=== PATIENT | male | born 1955 | race Caucasian/White ===

== ENCOUNTER 2022-10-21 14:49 | Outpatient (OUT) | payer OTHER, SELFPAY ==
[2022-10-21 15:27] LABS: Basophils Percent Auto 0.6 % (0.2-2.0); Eosinophils Absolute Auto 0.2 10^3/uL (0.0-0.7); Eosinophils Percent Auto 2.4 % (0.9-7.0); Hematocrit 45.8 % (42.0-54.0); Hemoglobin 15.2 g/dL (14.0-18.0); Immature Granulocytes Abs Auto 0.03 10^3/uL (0.00-0.03); Immature Granulocytes Pct Auto 0.5 % (0.0-0.5); Lymphocytes Absolute Auto 1.6 10^3/uL (1.2-3.8); Lymphocytes Percent Auto 24.5 % (20.5-60.0); Mean Corpuscular HGB Conc 33.2 g/dL (29.9-35.2); Mean Corpuscular Hemoglobin 30.4 pg (25.9-34.0); Mean Corpuscular Volume 91.6 fL (80.0-94.0); Mean Platelet Volume 9.3 fL (9.5-13.5); Monocytes Absolute Auto 0.4 10^3/uL (0.3-0.8); Monocytes Percent Auto 6.7 % (1.7-12.0); Neutrophils Absolute Auto 4.2 10^3/uL (1.4-6.5); Neutrophils Percent Auto 65.3 % (43.0-75.0); Platelet Count 164 10^3/uL (150-450); Red Cell Distribution Width 13.7 % (11.0-15.0); White Blood Count 6.4 10^3/uL (4.0-11.0)
[2022-10-21 15:54] LABS: Alanine Aminotransferase 22 U/L (16-63); Albumin Globulin Ratio 1.1; Albumin Level 3.6 g/dL (3.4-5.0); Alkaline Phosphatase 81 U/L (46-116); Aspartate Amino Transferase 18 U/L (15-37); BUN Creatinine Ratio 19.8; Bilirubin Total 0.5 mg/dL (0.2-1.0); Calcium 8.6 mg/dL (8.5-10.1); Carbon Dioxide 29.1 mmol/L (21.0-32.0); Chloride 108 mmol/L (98-107); Chol HDL Ratio 2.4; Cholesterol 187 mg/dL (<=200); Estimated GFR (African America >60 (>=60); Estimated GFR (Non-African Ame >60 (>=60); Globulin 3.3 g/dL; Glucose 93 mg/dL (74-106); HDL Cholesterol 79 mg/dL (40-60); Magnesium 1.6 mg/dL (1.8-2.4); Potassium 4.1 mmol/L (3.5-5.1); Sodium 142 mmol/L (136-145); Thyroid Stimulating Hormone 0.692 uIU/mL (0.358-3.740); Total Protein 6.9 g/dL (6.4-8.2); Triglycerides 62 mg/dL (<=150); VLDL CHOLESTEROL 12.4 mg/dL
[2022-10-21 16:00] LABS: Prostate Specific Antigen Scrn 3.02 ng/mL (<=4.00)
[2022-10-21 16:04] LABS: Bilirubin Urine NEGATIVE (NEGATIVE); Blood Urine NEGATIVE (NEGATIVE); Clarity Urine CLEAR (CLEAR); Color Urine YELLOW (YELLOW); Glucose Urine UA NEGATIVE (NEGATIVE); Ketones Urine NEGATIVE (NEGATIVE); Leukocyte Esterase Urine NEGATIVE (NEGATIVE); Nitrite Urine NEGATIVE (NEGATIVE); Protein Urine NEGATIVE (NEG/TRACE); Specific Gravity Urine >=1.030 (1.005-1.025); Urobilinogen Urine 0.2 EU/dL (0.2-1.0); pH Urine 5.5 (5.0-9.0)
[2022-10-21 16:51] LABS: Bacteria Urine TRACE #/HPF (NONE SEEN); Cast Seen? NONE SEEN #/LPF (NONE SEEN); Crystals Seen? None Seen #/HPF (None Seen); Mucus Urine NONE SEEN (NONE SEEN); RBC Urine 0-2 #/HPF (0-2); Squamous Epithelial Cell Urine RARE #/LPF (NONE/RARE); Urine Culture Indicated NO; WBC Urine 0-2 #/HPF (NONE SEEN)
[2022-10-22 04:08] LABS: Triiodothyronine (T3) 123 ng/dL (71-180)
== END 2022-10-21 14:50 | disposition home or self-care (01) ==
LOC: LAB 14:56
PROVIDERS: PCP Nurse Practitioner; Visit Provider Nurse Practitioner
DX: R53.83 Other fatigue (principal); Z72.0 Tobacco use; Z82.49 Family history of ischemic heart disease and other diseases of the circulatory system; G25.81 Restless legs syndrome; Z12.5 Encounter for screening for malignant neoplasm of prostate; Z85.528 Personal history of other malignant neoplasm of kidney; K50.90 Crohn's disease, unspecified, without complications
CPT/HCPCS: 36415; 80053; 80061; 81001; 82728; 83735; 84443; 84480; 85025; G0103

== ENCOUNTER 2022-12-16 08:52 | Outpatient (OUT) | payer OTHER, SELFPAY ==
--- NOTE | 2022-12-16 09:49 | NM_ITS ---
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 INDICATIONS: CHEST PAIN, FAMILY HX OF CORONARY ATHEROSCLEROSIS, TOBACCO TECHNIQUE: Exam Description: Stress/Rest one day protocol gated SPECT Rest Imagin.5 mCi Tc-99m Cardiolite IV on 12/16/2022 Stress Imaging 28.7 mCi Tc-99m Cardiolite IV on 12/16/2022 Exercise Protocol: Ziyad Heart Rate (bpm): Rest: 75 Max: 130 PMHR: 84 Blood Pressure: Rest: 118/78 Max: 170/82 Exercise Time: Minutes: 9 Seconds: 55 Stage Reached: Stage: 4 Mets 11.2 Symptoms: Rest and peak stress ECG findings were normal and the exercise portion of the study was normal per attending physician Dr. Zuniga . For more details please see separate cardiac stress test report. FINDINGS: QUALITY OF STUDY: Excellent. PERFUSION DEFECT: None. LOCATION: N/A SIZE: N/A. SEVERITY: N/A. TYPE: N/A. WALL MOTION: Normal. LV SIZE: Normal. 76 mL. TID / TCD: None; 0.8 LVEF: Normal. Calculated EF 55%. SUMMARY: Myocardial perfusion imaging study is NORMAL. CONCLUSION: 1. Normal nuclear medicine myocardial perfusion scan. 2. Ejection fraction is at lower limits of normal. Dictated by: Yoni Capone M.D. on 12/17/2022 at 09:20 Approved by: Yoni Capone M.D. on 12/17/2022 at 09:22
--- NOTE | 2022-12-16 12:41 | PM.STRESS ---
Stress Test Stress Test Requesting physician: Leah Olson Procedure: Exercise Cardiolite stress test General Information: Reason for Stress Test: Chest pain Cardiac History and Risk Factors: Current smoker, father has history of CAD. Resting 12 - Lead Electrocardiogram: Rate & rhythm: Normal sinus at a rate of 74. [place]: Normal T-waves: Inverted T-waves in aVL ST-segments:Normal Stress Test: Protocol: Ziyad protocol was followed, with injection of Cardiolite once target heart rate was achieved. Exercise capacity: Execellent exercise capacity. Total exercise time of 9 minutes 56 seconds reached Ziyad stage 4 at 3.6MPH, 16% grade, & 10.9 METs. Blood pressure: Initial: 118/78, Maximum: 170/82, Recovery: 144/76 Rate & rhythm: Patient remained in sinus rhythm during the exercise and recovery portions of the study.? The maximum heart rate was 130, which was 85% of the maximum predicted heart rate 154. There were frequent polymorphic PVCs and occasional couplets. ST-segments & T-waves: There were no T-wave changes and ST-segment changes when compared to the baseline EKG. Patient response/symptoms: There were no symptoms similar to the chief complaint. Interpretation: Normal exercise stress test. Asymptomatic. Cardiolite imaging interpretation will be reported separately. Clinical correlation required.?
== END 2022-12-16 08:53 | disposition home or self-care (01) ==
LOC: NM 08:55
PROVIDERS: PCP Nurse Practitioner; Visit Provider Nurse Practitioner
DX: R07.9 Chest pain, unspecified (principal); Z82.49 Family history of ischemic heart disease and other diseases of the circulatory system; Z72.0 Tobacco use
CPT/HCPCS: 78452; 93017; A9500

== ENCOUNTER 2023-01-15 10:08 | Outpatient (OUT) | payer OTHER, SELFPAY ==
--- NOTE | 2023-01-15 11:13 | CA_ITS ---
Patient Name Site Name MARK BECKER [facility] Account No Medical Record Number Age Sex Date Time [id number] [facility]:[id number] M 01/15/2023 10:23 At the Request Of SCHUYLER HODGES ECHOCARDIOGRAM REPORT PROCEDURE: CA ECHO DOPPLER COMPLETE INDICATIONS: Chest pain COMPARISON: None. DESCRIPTION: COMPLETE ECHOCARDIOGRAM Real-time transthoracic echocardiography with 2D, M-mode, spectral and color flow Doppler performed. QUALITY: Technical quality was good. LEFT VENTRICLE: Normal chamber size. Normal left ventricular wall thickness. Global left ventricular systolic function is normal. LV EF: Estimated left ventricular ejection fraction is 55% DIASTOLIC: Normal diastolic function. ATRIAL SEPTUM: LEFT ATRIUM: Mild dilatation. RIGHT ATRIUM: Normal chamber size. RIGHT VENTRICLE: Normal chamber size. Normal right ventricular systolic function. TRICUSPID VALVE: Normal mobility and thickness. No stenosis with mild regurgitation. Moderate to severe pulmonary hypertension. RVSP 59 mmHg MITRAL VALVE: Normal mobility and thickness. No evidence of mitral valve stenosis. There is no mitral annular calcification. No mitral regurgitation. AORTIC VALVE: Normal trileaflet appearance. Thickened aortic valve. Normal leaflet mobility. No evidence of aortic valve stenosis. AORTIC ROOT: Normal diameter and appearance. PULMONIC VALVE: Normal thickness and mobility. No stenosis. Trivial regurgitation. PERICARDIUM: No evidence of pericardial effusion. IVC: Collapses with inspirations. Normal size. PLEURA: CONCLUSION: 1. Normal ventricular systolic function. LVEF is 55%. 2. Normal diastolic function. 3. Mild tricuspid regurgitation. 4. Moderately to severely elevated right-sided pressures. RVSP is 59 mmHg. 5. No pericardial effusion. Adult Echocardiography Procedure Report Left Ventricle LVEDD (3.7 - 5.6 cm): 4.51 cm LVESD (2.2 - 4.0 cm): 3.13 cm LVIVS thickness (0.6 - 1.2 cm): 0.80 cm LVPW thickness (0.5 - 1.0 cm): 0.90 cm e': 0.11 m/s E - e': 5.31 LVOT Max Gradient: 1.70 mm[Hg] LVOT Area (cm2): 0.65 m/s Peak Velocity (LVOT): 0.65 m/s Mean Velocity (LVOT): 0.45 m/s LVOT Diameter 2.02 cm Left Ventricular Ejection Fraction: 55 % Left Atrium LA Volume Index (2D A2C): 30.13 ml/m2 Left Atrium Systolic Dimension: 2.59 cm Mitral Valve MV E to A Ratio: 0.94 Mitral Valve A-Wave Peak Velocity: 0.62 m/s Mitral Valve E-Wave Peak Velocity: 0.58 m/s Right Ventricle RV Internal Diastolic Dimension: 3.95 cm Aorta AO Root Diam: 2.93 cm Ascending Ao Diam: 2.72 cm Aortic Valve AoV Area (Peak Dillon): 2.03 cm2, 2.03 cm2 AoV Area (VTI): 2.04 cm2, 2.04 cm2 Peak Velocity(Antegrade Flow): 1.02 m/s Peak Gradient(Antegrade Flow): 4.17 mm[Hg] Mean Velocity(Antegrade Flow): 0.65 m/s Mean Gradient(Antegrade Flow): 1.96 mm[Hg] Velocity Time Integral: 23.09 cm Tricuspid Valve Peak Velocity (Regurgitant Flow): 2.75 m/s, 3.74 m/s Pulmonic Valve Mean Gradient: 1.56 mm[Hg], 1.44 mm[Hg] Mean Velocity: 0.58 m/s, 0.57 m/s Peak Velocity: 0.85 m/s Peak Gradient: 3.22 mm[Hg], 2.61 mm[Hg] Right Atrium Right Atrium Systolic Pressure: 56.00 ml, 56.00 ml Dictated by: Charli Chamorro M.D. on 01/15/2023 at 18:31 Approved by: Charli Chamorro M.D. on 01/15/2023 at 18:35
== END 2023-01-15 10:09 | disposition home or self-care (01) ==
LOC: CARD 10:08
PROVIDERS: PCP Nurse Practitioner; Visit Provider Nurse Practitioner
DX: R07.9 Chest pain, unspecified (principal)
CPT/HCPCS: 93306

== ENCOUNTER 2023-02-17 11:46 | Emergency (ER) | payer OTHER, SELFPAY ==
[2023-02-17 11:52] VITALS: BP 152/79; PULSE 78; RESP 16; TEMP 36.6; O2SAT 98; BMI 20.7
--- NOTE | 2023-02-17 12:04 | ED.EYEPROB1 ---
HPI - Eye Problem General Chief complaint: Eye Problems Stated complaint: swollen, red eye Time Seen by Provider: 02/17/23 11:52 Source: patient Mode of arrival: walk-in Limitations: no limitations History of Present Illness HPI Narrative: 67-year-old male presents for swelling and redness around each eye. It started a few days ago, just after working in some brush and pulling some weeds. He thinks it might be poison yissel. It's pruritic. He's had no drainage from his eyes and there is no direct trauma and he didn't get anything into his eyes. It's continuous. Related Data Previous Rx's Medication Instructions Recorded prednisone 10 mg tablet See Rx Instructions .Route 02/17/23 .COMPLEX #30 tabs Allergies Allergy/AdvReac Type Severity Reaction Status Date / Time No Known Drug Allergies Allergy Verified 02/17/23 11:56 Review of Systems ROS Narrative A ten point review of systems is negative except as noted above. PFSH PFSH Social History Smoking status: Heavy tobacco smoker Exam Narrative Exam Narrative: Nurses note and vital signs reviewed and patient is not hypoxic. General: The patient appears well and in no apparent distress. Patient is resting comfortably on cart. Skin: Warm, dry, no pallor noted. There is no rash noted. Head: Normocephalic, atraumatic Eye: Normal conjunctiva, no drainage, he has erythema and swelling bilaterally in the. Orbital region. The conjunctiva have no injection. There is no open area or drainage of the skin. Ears, Nose, Mouth, and Throat: oral mucosa is moist. Nares patent. Cardiovascular: Regular Rate and Rhythm Respiratory: Patient is in no distress, no accessory muscle use, lungs are clear to auscultation, no wheezing, rales or rhonchi Back: non-tender GI: soft and nontender Musculoskeletal: The patient has no evidence of calf tenderness, no pitting edema, symmetrical pulses noted bilaterally Neurological: A&O, normal speech Psychiatric: Cooperative Constitutional Vital Signs, click to edit/add: Last Vital Signs Temp 98 F 02/17/23 11:52 Pulse 78 02/17/23 11:52 Resp 16 02/17/23 11:52 BP 152/79 H 02/17/23 11:52 Pulse Ox 98 02/17/23 11:52 O2 Del Method Room Air 02/17/23 11:52 Course Vital Signs Vital signs: Vital Signs Temperature 98 F 02/17/23 11:52 Pulse Rate 78 02/17/23 11:52 Respiratory Rate 16 02/17/23 11:52 Blood Pressure 152/79 H 02/17/23 11:52 Pulse Oximetry 98 02/17/23 11:52 Oxygen Delivery Method Room Air 02/17/23 11:52 Temperature 98 F 02/17/23 11:52 Pulse Rate 78 02/17/23 11:52 Respiratory Rate 16 02/17/23 11:52 Blood Pressure 152/79 H 02/17/23 11:52 Pulse Oximetry 98 02/17/23 11:52 Oxygen Delivery Method Room Air 02/17/23 11:52 MDM - Eye Problem MDM Narrative Medical decision making narrative: my clinical impression is that he has poison yissel. He was given IM Solu-Medrol and prescribed prednisone. I've no clinical suspicion of conjunctivitis or periorbital cellulitis. Treatment diagnosis and follow-up were discussed with the patient. Differential Diagnosis Differential diagnosis: Likely other (contact dermatitis, periorbital cellulitis, conjunctivitis) Discharge Plan Discharge Chief Complaint: Eye Problems Clinical Impression: Contact dermatitis Patient Disposition: Home, Self-Care Time of Disposition Decision: 12:02 Condition: Good Mode of Transportation: Private Vehicle Prescriptions / Home Meds: New prednisone 10 mg tablet See Rx Instructions .ROUTE .COMPLEX Qty: 30 0RF Rx Instructions: 4 by mouth daily for three days then 3 by mouth daily for three days then 2 by mouth daily for three days then 1 by mouth daily for three days Instructions: Contact Dermatitis (ED), Poison Yissel (ED) Stand Alone Forms: Portal Instructions Referrals: Leah Olson NP [Primary Care Provider] - 1 week
[2023-02-17] MEDS: METHYLPREDNISOLONE SOD SUCC PF 125 MG/2 ML VIAL 250 MG IM (12:25)
== END 2023-02-17 12:37 | disposition home or self-care (01) ==
PROVIDERS: Emergency Provider Emergency Medicine; PCP Nurse Practitioner
DX: L23.7 Allergic contact dermatitis due to plants, except food (principal); F17.200 Nicotine dependence, unspecified, uncomplicated
CPT/HCPCS: 96372; 99284; J2930

== ENCOUNTER 2023-07-28 15:58 | Emergency (ER) | payer MEDICARE, SELFPAY ==
[2023-07-28 16:05] VITALS: BP 155/87; PULSE 82; TEMP 36.7; O2SAT 95; BMI 21.5
--- OUTSIDE RECORDS SUMMARY | 2023-07-28 16:42 | XMS_ITS ---
Patient Summarization (C-CDA 2.1 CCD) Created on: July 28, 2023 MARK PAREKH : 1955 Sex: Male Author Organization Sample organization Care Team Providers Care Automobile Relocation Engineer Name Role Phone No, Physician Unavailable Unavailable GABINO, KIRSTIE JIMENEZ Unavailable Unavailable GABINO, KIRSTIE JIMENEZ Unavailable Unavailable NO, PHYSICIAN Unavailable Unavailable GABINO, KIRSTIE JIMENEZ Unavailable Unavailable GABINO, KIRSTIE JIMENEZ Unavailable Unavailable NO, PHYSICIAN Unavailable Unavailable No, Physician Primary Care Provider Unavailector Trujillo MD, Nicolas Primary Care Provider [phone] EDNA RASCON Attending Unavailable LEAH OLSON Attending Unavailable LEAH OLSON Attending Unavailable SHAIKH TOBAR Attending Unavailable Encounters Encounter Date Encounter Type Care Provider Facility Start: 07-17-2023 End: 07-17-2023 ambulatory SHAIKH EKATERINA Not Available Start: 05-14-2023 End: 05-14-2023 ambulatory LEAH OLSON Not Available Start: 04-11-2023 End: 04-11-2023 ambulatory EDNA INGRAMKATIE [facility] Start: 04-01-2023 End: 04-02-2023 ambulatory LEAH OLSON Not Available Start: 04-01-2023 End: 04-01-2023 Office outpatient visit 15 minutes Leah Olson EXTRACTION MACHINE OPERATOR Work Phone: [facility] Comment on above: Pulmonary hypertensi on (CMS/HCC) (Primary Dx); Crohn's disease without complication, unspecified gastrointestinal tract location (CMS/HCC); Tobacco user; Anxiety Start: 04-27-2020 End: 04-27-2020 Orders Only Aspen Bates Work Phone: [facility] Start: 09-10-2017 End: 09-11-2017 Patient encounter KIRSTIE LLOYD [facility] Start: 09-10-2017 End: 09-10-2017 Patient encounter Kirstie Lloyd Work Phone: [facility] [facility] Medications Current Medications Medication Drug Class(es) Dates Sig (Normalized) Sig (Original) rOPINIRole 0.5 mg oral tablet (2 sources) Nonergot Dopamine Agonist Start: 01-15-2023 take 1 tablet by mouth at bedtime rOPINIRole (Requip) 0.5 MG tablet Take 1 tablet by mouth at bedtime 0 01/15/2023 Active Payers Date Payer Category Payer Medicare [id number] 2019 Medicare [id number] 1955 Unknown [id number] 1955 Unknown [id number] 1955 Unknown [id number] Plan of Treatment Date Care Activity Detail Author Start: 08-24-2023 Influenza vaccination Influenza Vacc ine (#1) [facility] Comment on above: Postponed from 10/25 (Patient Does Not Have Time) Start: 05-14-2023 End: 05-14-2023 Patient encounter procedure 05/14/2023 1:40 PM EDT Office Visit [facility] [address] [place] [id number] Leah Olson NP [address] [place] [id number] [facility] Start: 04-24-2023 Pneumococcal Vaccine : 65+ Years (1 - PCV) Pneumococcal Vaccine: 65+ Years (1 - PCV) [facility] Comment on above: Postponed from 10/27 (Patient Does Not Have Time) Start: 10-26-2019 Influenza vaccination given Se quential Influenza Vaccine (#1) [facility] Start: 10-25-2017 Influenza vaccination SEQUENTI AL INFLUENZA VACCINE (#1) [facility] Start: 2016 Zoster vaccine hzv l dinh for subcutaneous use ZOSTER VACCINE [facility] Start: 2006 Administration of he rpes zoster vaccine Zoster Vaccines (1 of 2) [facility] Start: 2006 Screening for malign ant neoplasm of colon [facility] Start: 1974 Hepatitis C antibody , confirmatory test Hepatitis C Screening [facility] Start: 1972 COVID-19 Vaccine (1 of 2) COVI D-19 Vaccine (1 of 2) [facility] Start: 10-28-1971 HIV screening HIV Screening [facility] Start: 1968 Adolescent depressio n screening assessment Depression Screening (PHQ9) [facility] Start: 10-28-1959 History and physical examination, annual for health maintenance Wellness Visit [facility] Start: 1955 Medicare Annual Well ness (AWV) Medicare Annual Wellness (AWV) [facility] Start: 1955 Prostate specific an tigen measurement PSA Level [facility] Start: 1955 HEPATITIS C SCREENING HEPATITIS C SC REENING [facility] Start: 1955 Screening colonoscopy [facility]COPY [facility] Start: 1956 End: 1956 Tetanus vaccination [facility] Problems Problem Classification Problem Date Documented Da te Episodic/Chronic Anxiety disorders (4 sources) Anxiety; Translations: [Anxiety disorder, unspecified] Onset: 04-01-2023 04-01-2023 Chronic Cancer of kidney and renal pelvis (2 sources) Malignant tumor of kidney; Translations: [Malignant neoplasm of unspecified kidney, except renal pelvis] Onset: 04-01-2023 04-01-2023 Chronic Hypertension with complications and secondary hypertension (2 sources) Hypertensive heart disease without heart failure; Translations: [Hypertensive heart disease without heart failure] Onset: 04-11-2023 Chronic Other endocrine disorders (2 sources) Hypotestosteronism; Translations: [Endocrine disorder, unspecified] Onset: 04-01-2023 04-01-2023 Episodic Other hereditary and degenerative nervous system conditions (2 sources) Restless legs; Translations: [Restless legs syndrome] Onset: 04-01-2023 04-01-2023 Chronic Pulmonary heart disease (4 sources) Pulmonary hypertension; Translations: [Pulmonary hypertension, unspecified] Onset: 04-01-2023 04-01-2023 Chronic Regional enteritis and ulcerative colitis (4 sources) Crohn's disease; Translations: [Crohn's disease, unspecified, without complications] Onset: 04-01-2023 04-01-2023 Chronic Residual codes; unclassified (4 sources) Tobacco user; Translations: [Tobacco use] Onset: 04-01-2023 04-01-2023 Episodic Residual codes; unclassified (2 sources) Family history of coronary arteriosclerosis; Translations: [Family history of ischemic heart disease and other diseases of the circulatory system] Onset: 04-01-2023 04-01-2023 Episodic Residual codes; unclassified (2 sources) Insomnia; Translations: [Insomnia, unspecified] Onset: 04-01-2023 04-01-2023 Episodic Spondylosis; intervertebral disc disorders; other back problems (3 sources) Low back pain; Translations: [Low back pain] Onset: 09-10-2017 Episodic Unclassified (2 sources) [facility] Physician Contact Required; Translations: [[place] [facility] Physician Contact Required] Onset: 09-10-2017 Results Test Name Value Interpretation Reference Range Facility Office Visiton 04-11-2023 Follow-up visit [id number] Loco Alicia 1955 M Date Provider Department Center 04/11/2023 [id number] RASCON [facility] Family History Problem Relation Age of Onset Coronary artery disease Father Heart attack Father Hypertension Brother Atrial fibrillation Brother Family Status - Relation Status Age at Father Brother Level of Service:17821 FL OFFICE/OUTPATIENT NEW MODERATE MDM 45 MINUTES Normal [facility] XR LUMBAR SPINE 2-3 VIEWS (S TANDARD)on 09-10-2017 XR LUMBAR SPINE 2-3 VIEWS (STANDARD) EXAMINATION:XR LUMBAR SPINE 2-3 VIEWS (STANDARD)HISTORY:ORDE RING SYSTEM PROVIDED HISTORY: Low back pain, TECHNOLOGIST PROVIDED HISTORY: Reason for exam: Per order- Low back pain Per pt- chronic low back pain, no known injuries, no sxIllness/OtherCancer History: naSurgery, RadiationHistory: naEncounter Type: InitialAdditional signs and symptoms: Per order- Low back pain Per pt- chronic low back pain, no known injuries, no sxORDERING SYSTEM PROVIDED DIAGNOSIS CODES:M54.5 Low back painCOMPARISON:None.FI NDINGS:Three views of the lumbar spine were obtained. Five lumbar-type vertebrae are present. The vertebral body heights and disc spaces are maintained. Mild endplate osteophyte formation is noted at multiple levels, including bridging at L1-L2 and L4-L5. No acute fracture or subluxation. Facet hypertrophy noted at L4-L5 and L5-S1. Pedicles appear intact and symmetric. Visualized portions of the bony pelvis are unremarkable. Postsurgical findings noted in the right abdomen.IMPRESSION:Mul tilevel degenerative disc disease and lower lumbar facet arthropathy without acute abnormality.IPG/Superconductor TechnologiesBlessing kstation ID: [id number] by: JUDSON HUNTLEY on FriSep 10, 2017 4:19:46 PM EDTTranscribed by: EVANGELISTA VALDEZ on FriSep 10, 2017 4:44:25 PM EDTFinalized by: JUDSON HUNTLEY on FriSep 10, 2017 5:57:49 PM EDT Normal [facility] Comment on above: Order Comment: Reaso n for exam?:Per order- Low back pain Per pt- chronic low back pain, no known injuries, no sxInjury/Trauma or Illness?:Illness/OtherHow long have you had these symptoms (acute/chronic)?:ChronicHistory of cancer?:naSurgeries, chemotherapy, or radiation?:naType of Exam?:InitialAdditional signs and symptoms?:Per order- Low back pain Per pt- chronic low back pain, no known injuries, no sx XR Lumbar Spine 2-3 Views (S tandard)on 09-10-2017 Acetaminophen mass conc Multilevel degenerative disc disease and lower lumbar facet arthropathy without acute abnormality. IPG/[employer] Workstation ID: [id number] Invalid Interpretation Code [facility] XR Lumbar Spine 2-3 Views (Standard) EXAMINATION: XR LUMBAR SPINE 2-3 VIEWS (STANDARD) HISTORY: ORDERING SYSTEM PROVIDED HISTORY: Low back pain, TECHNOLOGIST PROVIDED HISTORY: Reason for exam: Per order- Low back pain Per pt- chronic low back pain, no known injuries, no sx Illness/Other Cancer History: na Surgery, RadiationHistory: na Encounter Type: Initial Additional signs and symptoms: Per order- Low back pain Per pt- chronic low back pain, no known injuries, no sx ORDERING SYSTEM PROVIDED DIAGNOSIS CODES: M54.5 Low back pain COMPARISON: None. FINDINGS: Three views of the lumbar spine were obtained. Five lumbar-type vertebrae are present. The vertebral body heights and disc spaces are maintained. Mild endplate osteophyte formation is noted at multiple levels, including bridging at L1-L2 and L4-L5. No acute fracture or subluxation. Facet hypertrophy noted at L4-L5 and L5-S1. Pedicles appear intact and symmetric. Visualized portions of the bony pelvis are unremarkable. Postsurgical findings noted in the right abdomen. Invalid Interpretation Code [facility] [place] XR Lumbar Spine 2-3 Views (Standard) Interface, Rad In Sazneo - 09/10/2017 6:00 PM EDT EXAMINATION: XR LUMBAR SPINE 2-3 VIEWS (STANDARD) HISTORY: ORDERING SYSTEM PROVIDED HISTORY: Low back pain, TECHNOLOGIST PROVIDED HISTORY: Reason for exam: Per order- Low back pain Per pt- chronic low back pain, no known injuries, no sx Illness/Other Cancer History: na Surgery, RadiationHistory: na Encounter Type: Initial Additional signs and symptoms: Per order- Low back pain Per pt- chronic low back pain, no known injuries, no sx ORDERING SYSTEM PROVIDED DIAGNOSIS CODES: M54.5 Low back pain COMPARISON: None. FINDINGS: Three views of the lumbar spine were obtained. Five lumbar-type vertebrae are present. The vertebral body heights and disc spaces are maintained. Mild endplate osteophyte formation is noted at multiple levels, including bridging at L1-L2 and L4-L5. No acute fracture or subluxation. Facet hypertrophy noted at L4-L5 and L5-S1. Pedicles appear intact and symmetric. Visualized portions of the bony pelvis are unremarkable. Postsurgical findings noted in the right abdomen. IMPRESSION: Multilevel degenerative disc disease and lower lumbar facet arthropathy without acute abnormality. SLM/peter Workstation ID: [id number] Invalid Interpretation Code [facility] [facility] Social History Date Type Detail Facility Start: 04-01-2023 Tobacco use panel [facility] Start: 03-26-2023 Tobacco smoking status NHIS Smokes t obacco daily [facility] Start: 03-26-2023 End: 04-01-2023 Cigarettes smoked current (pack per day) - Reported 1 [facility] Start: 1955 Sex Assigned At Not on file [facility] Tobacco smoking status NHIS Unknown if ev er smoked [facility] History of tobacco use Cigarette Smoker N [facility] Vital Signs Date Time Vital Sign Value Performing Clinician Jennifer alcala 04-01-2023 14:11-0500 Body height 175.3 cm Leah Olson EXTRACTION MACHINE OPERATOR Work Phone: [facility] 04-01-2023 14:11-0500 Body mass index (BMI) [Ratio] 22.95 kg/m2 Leah Olson EXTRACTION MACHINE OPERATOR Work Phone: [facility] 04-01-2023 14:11-0500 Body temperature 98.2 [degF] Leah Olson EXTRACTION MACHINE OPERATOR Work Phone: [facility] 04-01-2023 14:11-0500 Body weight 70.49 kg Leah Olson EXTRACTION MACHINE OPERATOR Work Phone: [facility] 04-01-2023 14:11-0500 Diastolic blood pressure 82 mm[Hg] Leah Olson EXTRACTION MACHINE OPERATOR Work Phone: [facility] 04-01-2023 14:11-0500 Heart rate 95 /min Leah Olson EXTRACTION MACHINE OPERATOR Work Phone: [facility] 04-01-2023 14:11-0500 Respiratory rate 18 /min Leah Olson EXTRACTION MACHINE OPERATOR Work Phone: [facility] 04-01-2023 14:11-0500 SaO2% (BldA) [Mass fraction] 99 % Leah Olson EXTRACTION MACHINE OPERATOR Work Phone: [facility] 04-01-2023 14:11-0500 Systolic blood pressure 124 mm[Hg] Leah Olson EXTRACTION MACHINE OPERATOR Work Phone: [facility] Progress note 04-11-2023 Note Date & Type Note Facility 04-11-2023 Note New patient here to establish care. Ref from Leah Olson CNP for abnormal echo performed in Dec 2022. He had a stress test in Nov 2022. [facility] Progress note 04-11-2023 Note Date & Type Note Facility 04-11-2023 Note Cardiology Clinic No te Chief Complaint: new referral for pulmonary hypertension on echo HPI: GUTIERREZ Alicia is a 67 y.o. male With a past medical history including tobacco abuse who presents to cardiology clinic at the request of his primary care physician due to elevated pulmonary pressures on echocardiogram. Patient states that he had a stress test and echocardiogram performed due to chest pain. Stress test was without evidence of ischemia. Echocardiogram demonstrated elevated RVSP at 59 mmHg. Otherwise, no significant abnormalities on echocardiogram. Today, patient states that he continues to have chest pain. Chest pain is atypical in nature. It is sharp, fleeting, and occurs only at rest. He notices that the chest pain is preceded with palpitations, feeling like his heart races. Chest pain then occurs. He denies any chest pain outside of episodes of palpitations. He is very active at baseline and adamantly denies any chest pain or shortness of breath with activity. He denies any lower extremity edema, orthopnea, or paroxysmal nocturnal dyspnea. He denies any near-syncope or syncope He continues to smoke 1 to 1.5 packs/day. He is smoked for approximately 40 years. He has not had any previous lung testing performed Cardiology ROS: GENERAL: Denies fever, chills, night sweats, weight loss. HEENT: Denies changes in vision, photophobia, changes in hearing, epistaxis, oral bleeding. CARDIOVASCULAR: As per HPI RESPIRATORY: Denies SOB, coughing, wheezing GI: Denies abdominal pain, nausea/vomiting, heartburn, melena/hematochezia. RENAL: Denies dysuria, hematuria, flank pain. MSK: Denies muscle weakness/pain, arthralgias/joint pain. NEUROLOGIC: Denies LOC, weakness, numbness, headaches. SKIN: Denies abnormal rashes or bleeding. PSYCH: Denies significant anxiety, depression, sleep disturbances. Past Medical History He has a past medical history of Cancer ([facility]) and Crohn disease ([facility]). Surgical History He has a past surgical history that includes Abdominal surgery. Social History He reports that he has been smoking cigarettes. He has been smoking an average of 1 pack per day. He has never used smokeless tobacco. He reports that he does not drink alcohol. No history on file for drug use. Family History Family History Problem Relation Name Age of Onset Coronary artery disease Father Heart attack Father Hypertension Brother Atrial fibrillation Brother Medications Current Outpatient Medications on File Prior to Visit Medication Sig Dispense Refill rOPINIRole (Requip) 0.5 mg tablet Take 1 tablet by mouth if needed. No current facility-administered medications on file prior to visit. Allergies Patient has no known allergies. Physical Exam VITAL SIGNS: BP 146/82 (BP Location: Right arm, Patient Position: Sitting) Pulse 82 Ht 1.753 m (5' 9 ) Wt 70.8 kg (156 lb) SpO2 97% BMI 23.04 kg/m??? Constitutional: Well developed, Well nourished, No acute distress, Non-toxic appearance. HENT: Normocephalic, Atraumatic, Bilateral external ears have normal appearance, Nose appears normal, nares are patent. Eyes: PERRLA, EOMI, Conjunctiva normal, No discharge. Neck: Normal range of motion, No tenderness, Supple, No stridor. No cervical lymphadenopathy noted. Cardiovascular: Normal heart rate, Normal rhythm, No murmurs, No rubs, No gallops. Thorax & Lungs: Normal breath sounds, No respiratory distress, No wheezing, No chest tenderness to palpation. Abdomen: Bowel sounds normal, Soft, Nontender, No masses, No pulsatile masses. Skin: Warm, Dry, No erythema, No rash. Back: No tenderness, No CVA tenderness. Extremities: Intact distal pulses, No edema, No tenderness, No cyanosis, No clubbing. Musculoskeletal: Grossly normal strength in extremities Neurologic: Alert & oriented x 3, no gross focal neurological deficits Psychiatric: Affect normal, Judgment normal, Mood normal. Impression: -Chest pain, atypical in nature -Palpitation -Tobacco abuse -Pulmonary hypertension on echocardiogram -Hypertension Plan: -Chest pain is atypical in nature and does not appear to be anginal. It is accompanied by palpitations. Will obtain 30-day event monitor to rule out other arrhythmia and tachycardia as cause of chest pain -For pulmonary hypertension on echo, this finding is likely multifactorial and in part due to long history of smoking/lung dysfunction, and possibly some fluid overload. -Will start patient on hydrochlorothiazide 25 mg daily for both hypertension and elevated pulmonary pressures. Additionally, recommend that patient obtain designated pulmonary function test to rule out COPD as a cause of pulmonary hypertension -Check BMP in 7-10 days after HCTZ -I offered to refer patient to pulmonology. He respectfully declines at this time. -I spent 7 minutes counseling the patient on the importance of smoking cessation. I emphasized the risk of danelle (more content not included)... [facility] History of Present illness Narrative 04-01-2023 Leah Olson NP - 04/01/2023 3:00 PM Adrian Olson NP - 04/01/2023 2:59 PM Adrian Olson NP - 04/01/2023 2:59 PM Adrian Olson NP - 04/01/2023 2:00 PM EST Note Date & Type Note Facility 04-01-2023 History of Presen t illness Narrative Associated Problem(s): Anxiety At this time he does not feel he needs medicated Associated Problem(s): Crohn's disease (CMS/HCC) Stable at this time Associated Problem(s): Pulmonary hypertension (CMS/HCC) Referred to [facility] Cardiology Appt made while pt was here for 04/11/23 Images from the original note were not included. Mark Parekh is a 67 y.o. male presents with chief complaint of No chief complaint on file. HPI: Here for recheck, since last visit had stress test and ECHO for chest pain, stress test was normal, however he did have elevated pressures on echo to suggest pulmonary hypertension, he was referrred to [facility] cardiology for evaluation, but never had an appt No changes in conditions Also feels at times like he has no motiviation to do things, no SI/HI/hallucinations noted Does not feel down, no acute anxiety symptoms per pt 's report SUBJECTIVE: MEDICATIONS: Current Outpatient Medications Medication Instructions rOPINIRole (Requip) 0.5 MG tablet 1 tablet, Oral, Nightly ALLERGIES: No Known Allergies REVIEW OF SYMPTOMS: Review of Systems Constitutional: Negative for activity change, appetite change and unexpected weight change. HENT: Negative for ear pain, nosebleeds, sneezing, trouble swallowing and voice change. Eyes: Negative for pain, discharge and visual disturbance. Respiratory: Positive for chest tightness. Negative for apnea and wheezing. Cardiovascular: Negative for leg swelling. Chest pain: occ. Gastrointestinal: Negative for abdominal distention, blood in stool, constipation and diarrhea. Genitourinary: Negative for decreased urine volume, difficulty urinating, dysuria and hematuria. Skin: Negative for color change. Neurological: Negative for dizziness, tremors and seizures. Psychiatric/Behavioral: Negative for agitation, decreased concentration, hallucinations, self-injury and suicidal ideas. The patient is not nervous/anxious. Hematological: Negative for adenopathy. Does not bruise/bleed easily. Endocrine: Negative for cold intolerance, heat intolerance, polydipsia and polyuria. Allergic/Immunologic: Negative for environmental allergies and food allergies. PAST MEDICAL HISTORY Past Medical History: Diagnosis Date Anxiety Arthritis Cancer of kidney (CMS/HCC) Crohn's disease (CMS/HCC) Family history of coronary arteriosclerosis Fatigue Insomnia 04/01/2023 Neck pain RLS (restless legs syndrome) Testosterone deficiency Tobacco user Past Surgical History: Procedure Laterality Date COLECTOMY x2 NEPHRECTOMY 2013 family history is not on file. OBJECTIVE: Visit Vitals BP 124/82 (BP Location: Left arm, Patient Position: Sitting, BP Cuff Size: Adult) Pulse 95 Temp 98.2 F (Temporal) Resp 18 Ht 5' 9 Wt 155 lb 6.4 oz SpO2 99% BMI 22.95 kg/m Smoking Status Every Day BSA 1.85 m Physical Exam Constitutional: Appearance: Normal appearance. HENT: Head: Normocephalic. Right Ear: External ear normal. Left Ear: External ear normal. Nose: Nose normal. Mouth/Throat: Mouth: Mucous membranes are moist. Pharynx: Oropharynx is clear. Eyes: Extraocular Movements: Extraocular movements intact. Conjunctiva/sclera: Conjunctivae normal. Cardiovascular: Rate and Rhythm: Normal rate and regular rhythm. Pulses: Normal pulses. Heart sounds: Normal heart sounds. Pulmonary: Effort: Pulmonary effort is normal. Breath sounds: Normal breath sounds. Abdominal: General: Bowel sounds are normal. Palpations: Abdomen is soft. Musculoskeletal: Cervical back: Neck supple. Skin: General: Skin is warm and dry. Capillary Refill: Capillary refill takes 2 to 3 seconds. Neurological: General: No focal deficit present. Mental Status: He is alert. Psychiatric: Mood and Affect: Mood normal. Behavior: Behavior normal. Thought Content: Thought content normal. Judgment: Judgment normal. ASSESSMENT AND PLAN: No follow-ups on file. Problem List Items Addressed This Visit Crohn's disease (CMS/HCC) Stable at this time Tobacco user Anxiety At this time he does not feel he needs medicated Pulmonary hypertension (CMS/HCC) - Primary Referred to [facility] Cardiology Appt made while pt was here for 04/11/23 Subjective Patient ID: Mark Parekh is a 67 y.o. male who presents for No chief complaint on file.. HPI Review of Systems Objective Physical Exam Assessment/Plan Patient ID: Mark Parekh is a 67 y.o. male. Procedures documented in this encounter [facility] Evaluation note Note Date & Type Note Facility Evaluation note Diagnosis Pulmonary hypertension (CMS/HCC)- Primary Other chronic pulmonary heart diseases Crohn's disease without complication, unspecified gastrointestinal tract location (CMS/HCC) Tobacco user Tobacco use disorder Anxiety Anxiety state, unspecified documented in this encounter [facility] Assessments Diagnosis Low back pain Lumbago Summary Purpose Family History No Family History Records FoundNo Family History Records FoundNo Family History Records Found Advance Directives No Advanced Directives Records FoundNo Advanced Directives Records FoundNo Advanced Directives Records Found Additional Source Comments (unrecognized sect ion and content) No Status Records FoundNo Status Records FoundNo Status Records Found INFORMATION SOURCE (unrecogn ized section and content) DATE CREATED AUTHOR 09/12/2017 [facility] DATE CREATED AUTHOR AUTHOR'S ORGANIZ ATION 04/13/2023 [facility] DATE CREATED AUTHOR AUTHOR'S ORGANIZ ATION 07/20/[address] [facility] dical Specialists [facility] Care Teams (unrecognized sec tion and content) Automobile Relocation Engineer Relationship Specialty Start Date End Date Nicolas Trujillo MD [address] [place] [address] PCP - General Family Medicine 03/25/23 FOR RECORDS PERTAINING TO PATIENTS WHO ARE OR HAVE BEEN ENROLLED IN A CHEMICAL DEPENDENCY/SUBSTANCEABUSE PROGRAM, SOME INFORMATION MAY BE OMITTED. This clinical summary was aggregated from multiple sources. Caution should be exercised in using it in the provision of clinical care. This summary normalizes information from multiple sources, and as a consequence, information in this document may materially change the coding, format and clinical context of patient data. In addition, data may be omitted in some cases. CLINICAL DECISIONS SHOULD BE BASED ON THE PRIMARY CLINICAL RECORDS. [employer] provides no warranty or guarantee of the accuracy or completeness of information in this document.
== END 2023-07-28 17:42 | disposition left against medical advice (07) ==
PROVIDERS: Emergency Provider Emergency Medicine Emergency Medical Services; PCP Nurse Practitioner
DX: Z53.21 Procedure and treatment not carried out due to patient leaving prior to being seen by health care provider (principal)

== ENCOUNTER 2023-08-19 12:41 | Outpatient (OUT) | payer MEDICARE, SELFPAY ==
[2023-08-19 13:06] LABS: Hemoglobin 14.3 g/dL (14.0-18.0)
[2023-08-19 13:25] LABS: Anion Gap 9.6; BUN Creatinine Ratio 22.4; Calcium 8.7 mg/dL (8.5-10.1); Chloride 103 mmol/L (98-107); Estimated GFR (African America >60 (>=60); Estimated GFR (Non-African Ame >60 (>=60); Glucose 109 mg/dL (74-106); Potassium 3.6 mmol/L (3.5-5.1); Sodium 142 mmol/L (136-145)
[2023-08-19] MEDS: ALBUTEROL SULFATE 2.5 MG/3 ML VIAL NEB IH (14:38)
== END 2023-08-19 12:42 | disposition home or self-care (01) ==
LOC: LAB 12:42
PROVIDERS: PCP Nurse Practitioner; Visit Provider Nurse Practitioner
DX: I27.20 Pulmonary hypertension, unspecified (principal); J44.9 Chronic obstructive pulmonary disease, unspecified; M54.2 Cervicalgia; G89.29 Other chronic pain
CPT/HCPCS: 36415; 80048; 85018; 94060; 94726; 94729

== ENCOUNTER 2023-08-19 15:01 | Outpatient (OUT) | payer MEDICARE, SELFPAY ==
--- NOTE | 2023-08-19 15:06 | XR_ITS ---
The [address] [address] Patient Name: MARK BECKER MRN: [id number] date: 1955 Sex: M Assigned Patient Location: [facility] Current Patient Location: Accession/Order Number: [id number] Exam Date: 08/19/2023 15:05 Report Date: 08/20/2023 09:15 At the request of: SHAIKH EKATERINA Procedure: XR cervical spine 2-3V EXAMINATION: XR cervical spine 2-3V HISTORY: Chronic neck pain M54.2 COMPARISON: No relevant comparison available. FINDINGS: BONES: Normal alignment with no acute fracture or spondylolisthesis. Mild degenerative spondylosis. Moderate facet osteoarthropathy DISC SPACES: Normal. No significant disc height narrowing, subluxation, or endplate abnormality. PARASPINOUS: Negative. No paraspinous abnormality is seen. OTHER: Negative. XR/XR cervical spine 2-3V IMPRESSION: Mild to moderate degenerative changes Electronically authenticated by: DAVID JEAN Date: 08/20/2023 09:15
--- NOTE | 2023-08-19 15:06 | XR_ITS ---
[place] [id number] Patient Name: MARK BECKER MRN: [id number] date: 1955 Sex: M Assigned Patient Location: [facility] Current Patient Location: [facility] Accession/Order Number: [id number] Exam Date: 08/19/2023 15:05 Report Date: 08/19/2023 23:20 At the request of: SHAIKH EKATERINA Procedure: XR thoracic spine 3V Three views of the thoracic spine INDICATION: Pain COMPARISON: None XR/XR thoracic spine 3V IMPRESSION: Mild multilevel degenerative changes of the thoracic spine without evidence for acute fracture or subluxation. Soft tissues grossly unremarkable. Electronically authenticated by: FILEMON SIMMS Date: 08/19/2023 23:20
--- OUTSIDE RECORDS SUMMARY | 2023-08-19 15:23 | XMS_ITS | CCD ---
Author Organization [facility] ion Partnership [facility] Care Team Providers Care Customer Engineering Specialist Name Role Phone No, Physician Unavailable Unavailable GABINO, KIRSTIE ORDONEZ Unavailable Unavailable GABINO, KIRSTIE ORDONEZ Unavailable Unavailable NO, PHYSICIAN Unavailable Unavailable GABINO, KIRSTIE ORDONEZ Unavailable Unavailable GABINO, KIRSTIE ORDONEZ Unavailable Unavailable NO, PHYSICIAN Unavailable Unavailable No, Physician Primary Care Provider Unavailector Trujillo MD, Nicolas Primary Care Provider [phone] EDNA RASCON Attending Unavailable LEAH OLSON Attending Unavailable LEAH OLSON Attending Unavailable SHAIKH TOBAR Attending Unavailable Medications Current Medications Medication Drug Class(es) Dates Sig (Normalized) Sig (Original) rOPINIRole 0.5 mg oral tablet (2 sources) Nonergot Dopamine Agonist Start: 01-15-2023 take 1 tablet by mouth at bedtime rOPINIRole (Requip) 0.5 MG tablet Take 1 tablet by mouth at bedtime 0 01/15/2023 Active Problems Problem Classification Problem Date Documented Da [...] Range Facility Office Visiton 04-11-2023 Follow-up visit [id number] RavinLoco Wallace 1955 M Date Provider Department Center 04/11/2023 [id number] RASCON [facility] Family History Problem Relation Age of Onset Coronary artery disease Father Heart attack Father Hypertension Brother Atrial fibrillation Brother Family Status - Relation Status Age at Father Brother Level of Service:10199 [place] OFFICE/OUTPATIENT NEW MODERATE MDM 45 MINUTES Normal [facility] XR LUMBAR SPINE 2-3 VIEWS (S TANDARD)on [...] and lower lumbar facet arthropathy without acute abnormality.JENNIFFER/Suhail kstation ID: [id number] by: JUDSON HUNTLEY on FriSep 10, 2017 4:19:46 PM EDTTranscribed by: EVANGELISTA VALDEZ on FriSep 10, 2017 4:44:25 PM EDTFinalized by: JUDSON HUNTLEY on FriSep 10, 2017 5:57:49 PM EDT Normal [facility] Comment on above: Order Comment: Reaso n [...] lower lumbar facet arthropathy without acute abnormality. Legal [employer]ine/[employer] Workstation ID: [id number] Invalid Interpretation Code [facility] XR Lumbar Spine 2-3 Views (Standard) EXAMINATION: [...] in the right abdomen. Invalid Interpretation Code [employer] [place] XR Lumbar Spine 2-3 Views (Standard) Interface, Rad In [facility] - 09/10/2017 6:00 PM EDT EXAMINATION: XR [...] lower lumbar facet arthropathy without acute abnormality. JENNIFFER/peter Workstation ID: [id number] Invalid Interpretation Code [employer] [place] Vital Signs Date Time Vital Sign Value Performing Clinician Jennifer alcala 04-01-2023 14:11-0500 Body height 175.3 cm Leah Aichholz FINANCIAL SERVICES SPECIALIST Work Phone: [facility] 04-01-2023 14:11-0500 Body mass index (BMI) [Ratio] 22.95 kg/m2 Leahmirna Wuholz FINANCIAL SERVICES SPECIALIST Work Phone: [facility] 04-01-2023 14:11-0500 Body temperature 98.2 [degF] Leah Wuholz FINANCIAL SERVICES SPECIALIST Work Phone: [facility] 04-01-2023 14:11-0500 Body weight 70.49 kg Leahmirna Wuholz FINANCIAL SERVICES SPECIALIST Work Phone: [facility] 04-01-2023 14:11-0500 Diastolic blood pressure 82 mm[Hg] Leah Wuholz FINANCIAL SERVICES SPECIALIST Work Phone: [facility] 04-01-2023 14:11-0500 Heart rate 95 /min Leahmirna Sanchezz FINANCIAL SERVICES SPECIALIST Work Phone: [facility] 04-01-2023 14:11-0500 Respiratory rate 18 /min Leahmirna Wuholz FINANCIAL SERVICES SPECIALIST Work Phone: [facility] 04-01-2023 14:11-0500 SaO2% (BldA) [Mass fraction] 99 % Leahmirna Wuholz FINANCIAL SERVICES SPECIALIST Work Phone: [facility] 04-01-2023 14:11-0500 Systolic blood pressure 124 mm[Hg] Leahmirna Wuholz FINANCIAL SERVICES SPECIALIST Work Phone: [facility] Healthcare Encounters Encounter Date Encounter Type Care Provider Facility Start: 07-17-2023 End: 07-17-2023 ambulatory SHAIKH EKATERINA Not Available Start: 05-14-2023 End: 05-14-2023 ambulatory LEAH GAURIHHOLZ Not Available Start: 04-11-2023 End: 04-11-2023 ambulatory EDNA [facility] Start: 04-01-2023 End: 04-02-2023 ambulatory LEAH GAURIHHOLZ Not Available Start: 04-01-2023 End: 04-01-2023 Office outpatient visit 15 minutes Leah Aichholz FINANCIAL SERVICES SPECIALIST Work Phone: [facility] Comment on above: Pulmonary hypertensi on (CMS/HCC) (Primary Dx); Crohn's disease without complication, unspecified gastrointestinal tract location (CMS/HCC); Tobacco user; Anxiety Start: 04-27-2020 End: 04-27-2020 Orders Only Aspen Bates Work Phone: [facility] Start: 09-10-2017 End: 09-11-2017 Patient encounter KIRSTIEROME ORDONEZ GABINO [facility] Start: 09-10-2017 End: 09-10-2017 Patient encounter Kirstie Ordonez Gabino Work Phone: [facility] Diagnostics Plan of Treatment Date Care Activity Detail Author Start: 08-24-2023 Influenza vaccination Influenza Vacc ine (#1) [facility] Comment on above: Postponed from 10/25 (Patient Does Not Have Time) Start: 05-14-2023 End: 05-14-2023 Patient encounter procedure 05/14/2023 1:40 PM EDT Office Visit [facility] [address] [place] [id number] Leah Olson, JEN [address] [place] [id number] [facility] Start: 04-24-2023 Pneumococcal Vaccine : 65+ Years (1 - PCV) Pneumococcal Vaccine: 65+ Years (1 - PCV) [facility] Comment on above: Postponed from 10/27 (Patient Does Not Have Time) Start: 10-26-2019 Influenza vaccination given Se quential Influenza Vaccine (#1) [facility] Start: 10-25-2017 Influenza vaccination SEQUENTI AL INFLUENZA VACCINE (#1) [facility] Start: 2016 Zoster vaccine hzv l dinh for subcutaneous use ZOSTER VACCINE [facility] Start: 2006 Administration of he rpes zoster vaccine Zoster Vaccines (1 of 2) [facility] Start: 2006 Screening for malign ant neoplasm of colon [facility] Start: 1974 Hepatitis C antibody , confirmatory test Hepatitis C Screening [facility] Start: 1972 COVID-19 Vaccine (1 of 2) COVI D-19 Vaccine (1 of 2) [facility] Start: 10-28-1971 HIV screening HIV Screening [facility] Start: 1968 Adolescent depressio n screening assessment Depression Screening (PHQ9) [facility] Start: 10-28-1959 History and physical examination, annual for health maintenance Wellness Visit [facility] Start: 1955 Medicare Annual Well ness (AWV) Medicare Annual Wellness (AWV) [facility] Healthcare Start: 1955 Prostate specific an tigen measurement PSA Level [facility] Start: 1955 HEPATITIS C SCREENING HEPATITIS C SC REENING [facility] Start: 1955 Screening colonoscopy COLONOSCOPY O [facility] Start: 1955 End: [address] [facility] Payers Date Payer Category Payer Medicare [id number] 2019 Medicare [id number] 1955 Unknown [id number] 1955 Unknown [id number] 1955 Unknown [id number] Social History Date Type Detail Facility Tobacco smoking status WYIS Unknown if ev er smoked [facility] Start: 1955 Sex Assigned At Not on file O [facility] Start: 03-26-2023 Tobacco smoking status WYIS Smokes t obacco daily [facility] Healthcare History of tobacco use Cigarette Smoker [facility] Start: 03-26-2023 End: 04-01-2023 Cigarettes smoked current (pack per day) - Reported 1 [facility] Start: 04-01-2023 Tobacco use panel [facility] Progress note 04-11-2023 Note Date & Type Note Facility 04-11-2023 Note New patient here to establish care. Ref from Leah Olson CNP for abnormal echo performed in Dec 2022. He had a stress test in Nov 2022. [facility] Progress note 04-11-2023 Note Date & Type [...] has a past medical history of Cancer (CMS/HCC) and Crohn disease (CMS/HCC). Surgical History He has a past surgical [...] risk of danelle (more content not included)... [facility] History of Present illness Narrative 04-01-2023 Leah [...] Associated Problem(s): Pulmonary hypertension (CMS/HCC) Referred to [facility] Appt made while pt was here [...] suggest pulmonary hypertension, he was referrred to [facility] cardiology for evaluation, but never had an [...] Diagnosis Date Anxiety Arthritis Cancer of kidney ([facility]) Crohn's disease ([facility]) Family history of coronary arteriosclerosis Fatigue Insomnia [...] Pulmonary hypertension (CMS/HCC) - Primary Referred to [facility] Appt made while pt was here [...] DATE CREATED AUTHOR AUTHOR'S ORGANIZ ATION 04/13/2023 [facility] DATE CREATED AUTHOR AUTHOR'S ORGANIZ ATION 07/20/2023 [facility] dical Specialists [facility] Care Teams (unrecognized sec tion and content) Customer Engineering Specialist Relationship Specialty Start Date End Date Naderer, Nicolas, MD [address] [place] [address] PCP - General Family Medicine 03/25/23 FOR [...] BE BASED ON THE PRIMARY CLINICAL RECORDS. [facility]. provides no warranty or guarantee of the accuracy or completeness of information in this document.
== END 2023-08-19 15:02 | disposition home or self-care (01) ==
LOC: RAD 15:01
PROVIDERS: PCP Nurse Practitioner; Visit Provider Internal Medicine
DX: M54.2 Cervicalgia (principal); G89.29 Other chronic pain; I27.20 Pulmonary hypertension, unspecified; J44.9 Chronic obstructive pulmonary disease, unspecified; M47.812 Spondylosis without myelopathy or radiculopathy, cervical region
CPT/HCPCS: 36415; 72040; 72072; 80048; 85018; 94060; 94726; 94729

== ENCOUNTER 2023-10-21 14:04 | Outpatient (OUT) | payer MEDICARE, SELFPAY ==
--- NOTE | 2023-10-21 14:00 | CA_ITS ---
Patient Name: MARK BECKER MR#: [id number] : 1955 Exam Date: 10/21/2023 Ordering Doctor: EDNA RASCON M.D. ECHOCARDIOGRAM REPORT PROCEDURE: CA ECHO DOPPLER COMPLETE INDICATIONS: Pulmonary hypertension, emphysema COMPARISON: None. DESCRIPTION: COMPLETE ECHOCARDIOGRAM Real-time transthoracic echocardiography with 2D, M-mode, spectral and color flow Doppler performed. QUALITY: Technical quality was good. LEFT VENTRICLE: Normal chamber size. Normal left ventricular wall thickness. Systolic function is at the lower limits of normal. LV EF: Low normal left ventricular ejection fraction, (50-55%). DIASTOLIC: Normal diastolic function. ATRIAL SEPTUM: Visually appears intact. LEFT ATRIUM: Normal chamber size. RIGHT ATRIUM: Normal chamber size. RIGHT VENTRICLE: Normal chamber size. Normal right ventricular systolic function. TRICUSPID VALVE: Normal mobility and thickness. No stenosis with trivial regurgitation. No evidence of pulmonary hypertension. RVSP 33 mmHg MITRAL VALVE: Normal mobility and thickness. No evidence of mitral valve stenosis. There is no mitral annular calcification. Trivial mitral regurgitation. AORTIC VALVE: Normal trileaflet appearance. No visible sclerosis. Normal leaflet mobility. No evidence of aortic valve stenosis. No aortic regurgitation. AORTIC ROOT: Normal diameter and appearance. PULMONIC VALVE: Normal thickness and mobility. No stenosis. No regurgitation. PERICARDIUM: No evidence of pericardial effusion. IVC: Collapses with inspirations. Normal in size. PLEURA: CONCLUSION: 1. The left ventricular is normal in size and exhibits low normal systolic function. LVEF is estimated at 50 to 55%. 2. Normal right ventricular size and systolic function. 3. Normal diastolic function. 4. No significant valvular dysfunction. 5. Normal right-sided pressures. Adult Echocardiography Procedure Report Left Ventricle LVEDD (3.7 - 5.6 cm): 4.27 cm LVESD (2.2 - 4.0 cm): 3.04 cm LVIVS thickness (0.6 - 1.2 cm): 0.85 cm LVPW thickness (0.5 - 1.0 cm): 0.82 cm e': 0.08 m/s E - e': 5.13 LVOT Max Gradient: 1.55 mm[Hg] LVOT Area (cm2): 0.62 m/s Peak Velocity (LVOT): 0.62 m/s Mean Velocity (LVOT): 0.39 m/s LVOT Diameter 2.21 cm Left Atrium LA Volume Index (2D A2C): 24.93 ml/m2 Left Atrium Systolic Dimension: 1.99 cm Mitral Valve MV E to A Ratio: 0.90 Mitral Valve A-Wave Peak Velocity: 0.48 m/s Mitral Valve E-Wave Peak Velocity: 0.43 m/s Right Ventricle Aorta AO Root Diam: 3.13 cm Ascending Ao Diam: 2.62 cm Aortic Valve AoV Area (Peak Dillon): 2.94 cm2, 2.94 cm2 AoV Area (VTI): 2.51 cm2, 2.51 cm2 Peak Velocity(Antegrade Flow): 0.81 m/s Peak Gradient(Antegrade Flow): 2.64 mm[Hg] Mean Velocity(Antegrade Flow): 0.53 m/s Mean Gradient(Antegrade Flow): 1.31 mm[Hg] Velocity Time Integral: 17.83 cm Tricuspid Valve Peak Velocity (Regurgitant Flow): 2.73 m/s Pulmonic Valve Peak Velocity: 0.90 m/s Peak Gradient: 3.22 mm[Hg] Right Atrium Dictated by: Charli Chamorro M.D. on 10/21/2023 at 19:54 Approved by: Charli Chamorro M.D. on 10/21/2023 at 19:57
--- OUTSIDE RECORDS SUMMARY | 2023-10-21 14:08 | XMS_ITS | CCD ---
Author Organization [facility] Care Team Providers Care Line Patrolman Name Role Phone No, Physician Unavailable Unavailable GABINO, KIRSTIE ORDONEZ Unavailable Unavailable GABINO, KIRSTIE ORDONEZ Unavailable Unavailable NO, PHYSICIAN Unavailable Unavailable GABINO, KIRSTIE ORDONEZ Unavailable Unavailable GABINO, KIRSTIE ORDONEZ Unavailable Unavailable NO, PHYSICIAN Unavailable Unavailable No, Physician Primary Care Provider UnavailNicolas Rosa MD Primary Care Provider LEAH OLSON Attending Unavailable LEAH OLSON Attending Unavailable SHAIKH TOBAR Attending Unavailable LEAH OLSON Attending Unavailable EDNA BOUDREAUX Attending Unavailable EDNA BOUDREAUX Attending Unavailable Medications Current Medications Medication Drug [...] Value Interpretation Reference Range Facility Office Visiton 10-03-2023 Follow-up visit [id number] Loco Alicia 1955 M Date Provider Department [facility] Family History Problem Relation Age of Onset Coronary artery disease Father Heart attack Father Hypertension Brother Atrial fibrillation Brother Family Status - Relation Status Age at Father Brother Level of Service:19091 [place] OFFICE/OUTPATIENT ESTABLISHED LOW MDM 20 MIN Normal [facility] Office Visiton 04-11-2023 Follow-up visit [id number] Loco Alicia 1955 M Date Provider Department Center 04/11/2023 [id number], MOHAMAD BH CARD [facility] Family History Problem Relation Age of Onset Coronary artery disease Father Heart attack Father Hypertension Brother Atrial fibrillation Brother Family Status - Relation Status Age at Father Brother Level of Service:23748 [place] OFFICE/OUTPATIENT NEW MODERATE MDM 45 MINUTES Normal [facility] XR LUMBAR SPINE 2-3 VIEWS (S TANDARD)on [...] facet arthropathy without acute abnormality.JENNIFFER/Suhail kstation ID: [id number] by: JUDSON HUNTLEY on FriSep 10, 2017 4:19:46 PM EDTTranscribed by: EVANGELISTA VALDEZ on FriSep 10, 2017 4:44:25 PM EDTFinalized by: JUDSON HUNTLEY on FriSep 10, 2017 5:57:49 PM EDT Normal [facility] Comment on above: Order Comment: Reaso n [...] lower lumbar facet arthropathy without acute abnormality. [employer] Workstation ID: [id number] Invalid Interpretation Code [facility] fromAtoB [facility] XR Lumbar Spine 2-3 Views (Standard) [...] in the right abdomen. Invalid Interpretation [facility] XR Lumbar Spine 2-3 Views (Standard) Interface, [facility] - 09/10/2017 6:00 PM EDT EXAMINATION: XR [...] lower lumbar facet arthropathy without acute abnormality. [employer] Workstation ID: [id number] Invalid Interpretation Code [facility] Vital Signs Date Time Vital Sign Value Performing Clinician Faci lity 04-01-2023 14:110500 Body height 175.3 cm Leah Olson [employer] Work Phone: [facility] 04-01-2023 14:11-0500 Body mass index (BMI) [Ratio] 22.95 kg/m2 Leah Olson [employer] Work Phone: [facility] 04-01-2023 14:11-0500 Body temperature 98.2 [degF] Leah Olson [employer] Work Phone: [facility] 04-01-2023 14:[id number] Body weight 70.49 kg Leah Olson [employer] Work Phone: [facility] 04-01-2023 14:11-0500 Diastolic blood pressure 82 mm[Hg] Leah Olson [employer] Work Phone: [facility] 04-01-2023 14:11-0500 Heart rate 95 /min Leah Olson [employer] Work Phone: [facility] 04-01-2023 14:11-0500 Respiratory rate 18 /min Leah Olson [employer] Work Phone: [facility] 04-01-2023 14:11-0500 SaO2% (BldA) [Mass fraction] 99 % Leah Olson [employer] Work Phone: [facility] 04-01-2023 14:11-0500 Systolic blood pressure 124 mm[Hg] Leah Olson [employer] Work Phone: [facility] Encounters Encounter Date Encounter Type Care Provider Facility Start: 10-03-2023 End: 10-03-2023 [facility] Start: 09-16-2023 End: 09-16-2023 ambulatory LEAH OLSON Not Available Start: 07-17-2023 End: 07-17-2023 ambulatory SHAIKH EKATERINA Not Available Start: 05-14-2023 End: 05-14-2023 ambulatory LEAH CARROLL Not Available Start: 04-11-2023 End: 04-11-2023 ambulatory [facility] Start: 04-01-2023 End: 04-01-2023 ambulatory LEAH CARROLL Not Available Start: 04-01-2023 End: 04-01-2023 Office outpatient visit 15 minutes Leah Olson [employer] Work Phone: [facility] Comment on above: Pulmonary hypertensi on (CMS/HCC) (Primary Dx); Crohn's disease without complication, unspecified gastrointestinal tract location (CMS/HCC); Tobacco user; Anxiety Start: 04-27-2020 End: 04-27-2020 Orders Only Aspen Bates Work Phone: [facility] Start: 09-10-2017 End: 09-11-2017 Patient encounter KIRSTIEROME ORDONEZ [facility] Start: 09-10-2017 End: 09-10-2017 Patient encounter Kirstie Ordonez Gabino Work Phone: [facility] Plan of Treatment Date Care Activity Detail Author Start: 08-24-2023 Influenza vaccination Influenza Vacc ine (#1) [facility] Comment on above: Postponed from 10/25 (Patient Does Not Have Time) Start: 05-14-2023 End: 05-14-2023 Patient encounter procedure 05/14/2023 1:40 PM EDT Office Visit [facility] [address] [place] [address] Leah Olson NP [address] [place] [address] [facility] Start: 04-24-2023 Pneumococcal Vaccine : 65+ Years (1 - PCV) Pneumococcal Vaccine: 65+ Years (1 - PCV) [facility] Comment on above: Postponed from 10/27 (Patient Does Not Have Time) Start: 10-26-2019 Influenza vaccination given Se quential Influenza Vaccine (#1) [facility] Start: 10-25-2017 Influenza vaccination SEQUENTI AL INFLUENZA VACCINE (#1) [facility] Start: 2016 Zoster vaccine hzv l dinh for subcutaneous use ZOSTER VACCINE [facility] Start: 2006 Administration of he rpes zoster vaccine Zoster Vaccines (1 of 2) [facility] Start: 2006 Screening for malign ant neoplasm of colon [facility] Start: 1974 Hepatitis C antibody , confirmatory test Hepatitis C Screening [facility] Start: 1972 COVID-19 Vaccine (1 of 2) COVI D-19 Vaccine (1 of 2) [facility] Start: 10-28-1971 HIV screening HIV Screening [facility] Start: 1968 Adolescent depressio n screening assessment Depression Screening (PHQ9) [facility] Start: 10-28-1959 History and physical examination, annual for health maintenance Wellness Visit [facility] Start: 1955 Medicare Annual Well ness (AWV) Medicare Annual Wellness (AWV) [facility] Start: 1955 Prostate specific an tigen measurement PSA Level [facility] Start: 1955 HEPATITIS C SCREENING HEPATITIS C SC REENING [facility] Start: 1955 Screening colonoscopy [facility]COPY [facility] Start: 1956 End: 1956 Tetanus vaccination [facility] Payers Date Payer Category Payer Medicare [id number] 2019 Medicare [id number] 1955 Unknown [id number] 1955 Unknown [id number] 1955 Unknown [id number] 1955 Unknown [id number] Social History Date Type Detail Facility Tobacco smoking status NHIS Unknown if ev er smoked [facility] Start: 1955 Sex Assigned At Not on file [facility] Start: 03-26-2023 Tobacco smoking status MEIS Smokes t obacco daily [facility] History of tobacco use Cigarette Smoker [facility] Start: 03-26-2023 End: 04-01-2023 Cigarettes smoked current (pack per day) - Reported 1 [facility] Start: 04-01-2023 Tobacco use panel [facility] Progress note 10-03-2023 Note Date & Type Note Facility 10-03-2023 Note Cardiology Clinic No te HPI: GUTIERREZ Alicia is a 67 y.o. [...] mmHg. Otherwise, no significant abnormalities on echocardiogram. Patient presents for 6 month follow up. Overall, he is doing well. He denies any major complaints or concerns. He has occasional atypical chest pain. Shortness of braeth has improved a bit. He is not taking his hydrochlorothiazide as prescribed. Cardiology ROS: 10 point ROS is performed and is negative unless otherwise specified in HPI. Past Medical History He has a past medical history of Cancer ([facility]) and Crohn disease ([facility]). Surgical History He has a past surgical [...] Prior to Visit Medication Sig Dispense Refill hydroCHLOROthiazide (HYDRODiuril) 25 mg tablet Take 1 tablet (25 mg) by mouth in the morning. 90 tablet 3 rOPINIRole (Requip) 0.5 mg tablet Take 1 tablet by mouth if needed. No current facility-administered medications on file prior to visit. Allergies Patient has no known allergies. Physical Exam VITAL SIGNS: There were no vitals taken for this visit. Constitutional: Well developed, Well nourished, No acute [...] normal. Impression: -Chest pain, atypical in nature -Palpitation, no sustained arrythmias. Wore 30 day monitor for only 1 day -Tobacco abuse -Pulmonary hypertension on echocardiogram, not taking HCTZ -Hypertension, not taking HCTZ Plan: -For pulmonary hypertension on echo, this finding is likely multifactorial and in part due to long history of smoking/lung dysfunction, and possibly some fluid overload. -Emphasized importance of adherence to medication regimen. Recommend hydrochlorothiazide 25 mg daily for both hypertension and elevated pulmonary pressures. -Discussed L/R/Cors to assess for CAD and to measure pressures. Patient declines -I spent 7 minutes counseling the patient on the importance of smoking cessation. I emphasized the risk of continued smoking. I offered the patient various resources. Patient respectfully declines at this time. -Optimize medical management -Aggressive risk factor modification -Plan of care discussed with patient. All questions were answered. Patient voices understanding and is agreeable with current plan. -Patient was educated on red flag symptoms. Strict return precautions were provided. Patient verbalizes understanding -Follow-up in cardiology clinic in 6-8 weeks, or sooner as needed Thank you for allowing us to participate in the care of your patient. Please do not hesitate to contact cardiology with any questions or concerns. Edna Boudreaux MD Interventional Cardiology [facility] Progress note 04-11-2023 Note Date & Type Note Facility 04-11-2023 Note New patient here to establish care. Ref from Leah Olson CNP for abnormal echo performed in Dec 2022. He had a stress test in Nov 2022. [facility] Progress note 04-11-2023 Note Date & Type [...] has a past medical history of Cancer ([facility]) and Crohn disease ([facility]). Surgical History He has a past surgical [...] risk of danelle (more content not included)... [facility] History of Present illness Narrative 04-01-2023 Leah [...] Associated Problem(s): Pulmonary hypertension (CMS/HCC) Referred to [facility] Cardiology Appt made while pt was here for 04/11/23 Images from the original note were not included. Mark Simmons is a 67 y.o. male presents with chief complaint of No chief complaint on file. HPI: Here for recheck, since last visit had stress test and ECHO for chest pain, stress test was normal, however he did have elevated pressures on echo to suggest pulmonary hypertension, he was referrred to [facility] cardiology for evaluation, but never had an [...] Diagnosis Date Anxiety Arthritis Cancer of kidney ([facility]) Crohn's disease ([facility]) Family history of coronary arteriosclerosis Fatigue Insomnia [...] Pulmonary hypertension (CMS/HCC) - Primary Referred to [facility] Cardiology Appt made while pt was here for 04/11/23 Subjective Patient ID: Mark Simmons is a 67 y.o. male who presents for No chief complaint on file.. HPI Review of Systems Objective Physical Exam Assessment/Plan Patient ID: Mark Simmons is a 67 y.o. male. Procedures documented [...] section and content) DATE CREATED AUTHOR 09/12/2017 [facility] DATE CREATED AUTHOR AUTHOR'S ORGANIZ ATION 09/19/2023 [facility] EPIC DATE CREATED AUTHOR AUTHOR'S ORGANIZ ATION 10/06/2023 [facility] Care Teams (unrecognized sec tion and content) Line Patrolman Relationship Specialty Start Date End Date Nicolas Trujillo MD [address] [place] [address] PCP - General Family Medicine 03/25/23 FOR [...] BE BASED ON THE PRIMARY CLINICAL RECORDS. [email or web address] provides no warranty or guarantee of the accuracy or completeness of information in this document.
== END 2023-10-21 14:05 | disposition home or self-care (01) ==
PROVIDERS: PCP Nurse Practitioner; Visit Provider Internal Medicine Cardiovascular Disease
DX: I27.20 Pulmonary hypertension, unspecified (principal)
CPT/HCPCS: 93306

== ENCOUNTER 2024-09-20 09:58 | Outpatient (OUT) | payer SELFPAY ==
--- NOTE | 2024-09-20 | XR_ITS ---
The [address] [address] Patient Name: MARK BECKER MRN: [id number] date: 1955 Sex: M Assigned Patient Location: LAB Current Patient Location: LAB Accession/Order Number: [id number] Exam Date: 09/20/2024 11:14 Report Date: 09/20/2024 11:18 At the request of: SCHUYLER HODGES NP Procedure: XR thoracic spine 3V THORACIC SPINE - 3 views: CLINICAL HISTORY: Chronic thoracic pain. No history of injury. COMPARISON: 08/19/2023 AP, lateral and swimmer's views were obtained. A marker was placed in the area of patient's pain. There is osteopenia. A central venous line is again seen on the right. There is no acute compression fracture or displacement. The pedicles are intact. Small endplate spurs are present within the crszl-oh-vyaj. There are no paraspinal soft tissue abnormalities. XR/XR thoracic spine 3V IMPRESSION: OSTEOPENIA AND MILD DEGENERATIVE CHANGES. NO ACUTE BONY FINDINGS Impression dictated by: Ese Castillo M.D. 09/20/2024 11:18 AM Dictation Location: [place] [address] Electronically authenticated by: [id number] Y Date: 09/20/2024 11:18
--- OUTSIDE RECORDS SUMMARY | 2024-09-20 10:23 | XMS_ITS | CCD ---
Author Organization [facility] Care Team Providers Care Facer Operator Name Role Phone No, Physician Unavailable Unavailable GABINO, KIRSTIE ORDONEZ Unavailable Unavailable GABINO, KIRSTIE ORDONEZ Unavailable Unavailable NO, PHYSICIAN Unavailable Unavailable GABINO, KIRSTIE ORDONEZ Unavailable Unavailable GABINO, KIRSTIE ORDONEZ Unavailable Unavailable NO, PHYSICIAN Unavailable Unavailable No, Physician Primary Care Provider Unavailabl e Nicolas Trujillo MD Primary Care Provider Wesley COMMUNITY PLACEMENT WORKER, Leah Unavailable Unallocatsandie VIDAL, Toneys Provider Primary Care Provi darlene EDNA BOUDREAUX Attending Unavailable EDNA BOUDREAUX Attending Unavailable Nicolas Trujillo MD Primary Care Provider LEAH OLSON Attending Unavailable LEAH OLSON Attending Unavailable LEAH OLSON Attending Unavailable Medications Current Medications Medication Drug Class(es) Dates Sig (Normalized) Sig (Original) [id number] 200 actuat albuterol 0.09 mg/actuat metered dose inhaler (11 sources) beta2-Adrenergic Agonist Start: 09-16-2023 End: 10-15-2024 take 2 puff(s) by inhalation every six hours for wheezing albuterol HFA 90 mcg/act inhaler Indications: COPD mixed type (HCC) Inhale 2 puffs every 6 (six) hours if needed for wheezing or shortness of breath 18 g 1 09/15/2024 10/15/2024 Active aspirin 81 mg delayed release oral tablet (8 sources) Platelet Aggregation Inhibitor, Nonsteroidal Anti-inflammatory Drug Start: 09-15-2024 End: 12-14-2024 take 1 tablet by mouth in the morning aspirin 81 MG EC tablet Indications: Primary hypertension Take 1 tablet (81 mg) by mouth in the morning. Take 81 mg by mouth in the morning. 90 tablet 09/15/2024 12/14/2024 Active carvedilol 3.125 mg oral tablet (8 sources) alpha-Adrenergic Nadeem, beta-Adrenergic Nadeem Start: 03-05-2024 End: 02-28-2025 take 1 tablet by mouth in the morning carvedilol (Coreg) 3.125 MG tablet Indications: Primary hypertension Take 1 tablet (3.125 mg) by mouth in the morning and 1 tablet (3.125 mg) in the evening. Take with meals. 180 tablet 09/15/2024 12/14/2024 Active rOPINIRole 0.5 mg oral tablet (13 sources) Nonergot Dopamine Agonist Start: 09-16-2023 End: 12-14-2024 take 1 tablet by mouth at bedtime rOPINIRole (Requip) 0.5 MG tablet Indications: RLS (restless legs syndrome) Take 1 tablet (0.5 mg) by mouth at bedtime 90 tablet 09/15/2024 12/14/2024 Active Start: 01-15-2023 take 1 tablet by julio th at bedtime rOPINIRole (Requip) 0.5 MG tablet Take 1 tablet by mouth at bedtime 0 01/15/2023 Active tiZANidine 4 mg oral tablet (11 sources) Central alpha-2 Adrenergic Agonist Start: 09-16-2023 End: 10-15-2024 tiZANidine (Zanaflex) 4 MG tablet Indications: Cervical pain (neck) Take 1 tablet (4 mg) by mouth as needed at bedtime for muscle spasms May cause drowsiness 30 tablet 1 09/15/2024 10/15/2024 Active Completed/Discontinued Medications Medication Drug Class(es) Dates Sig (Normalized) Sig (Original) hydroCHLOROthiazide 25 mg oral tablet (13 sources) Thiazide Diuretic Start: End: take 1 tablet by mouth once daily hydroCHLOROthiazide (HYDRODiuril) 25 MG tablet Indications: Pulmonary hypertension (HCC) Take 1 tablet (25 mg) by mouth Daily 30 tablet 3 06/16/2024 09/15/2024 Discontinued (Reorder) Problems Active Problems Problem Classification Problem Date Documented Date Episodic/Chronic Anxiety disorders (13 sources) Anxiety; Translations: [Anxiety disorder, unspecified] Onset: 04-01-2023 04-01-2023 Chronic Cardiac dysrhythmias (2 sources) Palpitations; Translations: [Palpitations] Onset: 03-05-2024 Episodic Chronic obstructive pulmonary disease and bronchiectasis (19 sources) Chronic obstructive lung disease; Translations: [Chronic obstructive pulmonary disease, unspecified] Onset: 07-17-2023 Resolved: 06-16-2024 09-02-2023 Chronic Essential hypertension (9 sources) Essential hypertension; Translations: [Essential (primary) hypertension] Onset: 06-16-2024 06-16-2024 Chronic Other hereditary and degenerative nervous system conditions (15 sources) Restless legs; Translations: [Restless legs syndrome] Onset: 04-01-2023 04-01-2023 Chronic Pulmonary heart disease (20 sources) Pulmonary hypertension; Translations: [Pulmonary hypertension, unspecified] Onset: 04-01-2023 Resolved: 06-16-2024 04-01-2023 Chronic Regional enteritis and ulcerative colitis (20 sources) Crohn's disease; Translations: [Crohn's disease, unspecified, without complications] Onset: 04-01-2023 Resolved: 06-16-2024 04-01-2023 Chronic Residual codes; unclassified (5 sources) Patient noncompliance - general; Translations: [Medical non-compliance] Onset: 09-15-2024 09-15-2024 Episodic Spondylosis; intervertebral disc disorders; other back problems (20 sources) Low back pain; Translations: [Low back pain] Onset: 09-10-2017 05-14-2023 Episodic Substance-related disorders (10 sources) Tobacco dependence syndrome; Translations: [Nicotine dependence, unspecified, uncomplicated] Onset: 06-16-2024 06-16-2024 Chronic Unclassified (2 sources) [place] [facility] Physician Contact Required; Translations: [[place] [facility] Physician Contact Required] Onset: 09-10-2017 Past or Other Problems Problem Classification Problem Date Documented Da te Episodic/Chronic Cancer of kidney and renal pelvis (11 sources) Malignant tumor of kidney; Translations: [Malignant neoplasm of unspecified kidney, except renal pelvis] Onset: 04-01-2023 Resolved: 09-16-2023 04-01-2023 Chronic Cancer of kidney and renal pelvis (11 sources) History of malignant neoplasm of retroperitoneum; Translations: [Personal history of other malignant neoplasm of kidney] Onset: 09-16-2023 09-16-2023 Episodic Immunizations and screening for infectious disease (10 sources) Needs influenza immunization; Translations: [Encounter for immunization] Onset: 12-17-2023 12-17-2023 Episodic Mood disorders (9 sources) Mood disorders Onset: 09-16-2023 09-16-2023 Other endocrine disorders (11 sources) Hypotestosteronism; Translations: [Endocrine disorder, unspecified] Onset: 04-01-2023 04-01-2023 Episodic Other non-traumatic joint disorders (7 sources) Joint pain; Translations: [Pain in unspecified joint] Onset: 06-16-2024 06-16-2024 Episodic Other screening for suspected conditions (not mental disorders or infectious disease) (11 sources) Patient encounter status; Translations: [Encounter for screening for malignant neoplasm of prostate] Onset: 12-17-2023 12-17-2023 Episodic Residual codes; unclassified (15 sources) Tobacco user; Translations: [Tobacco use] Onset: 04-01-2023 Resolved: 06-16-2024 04-01-2023 Episodic Residual codes; unclassified (11 sources) Family history of coronary arteriosclerosis; Translations: [Family history of ischemic heart disease and other diseases of the circulatory system] Onset: 04-01-2023 04-01-2023 Episodic Residual codes; unclassified (11 sources) Insomnia; Translations: [Insomnia, unspecified] Onset: 04-01-2023 04-01-2023 Episodic Residual codes; unclassified (7 sources) Lung cancer screening declined; Translations: [Procedure and treatment not carried out because of patient's decision for unspecified reasons] Onset: 06-16-2024 06-16-2024 Episodic Results Test Name Value Interpretation Reference Range Facility Office Visiton 03-05-2024 Follow-up visit [id number] Loco Alicia 1955 M Date Provider Department Center 03/05/2024 3848-EDNA BOUD[facility]AUX [facility] Family History Problem Relation Age of Onset Coronary artery disease Father Heart attack Father Hypertension Brother Atrial fibrillation Brother Family Status - Relation Status Age at Father Brother Level of Service:71321 DE OFFICE/OUTPATIENT ESTABLISHED LOW MDM 20 MIN Normal [facility] 36on 10-22-2023 36 Spoke with patient t o inform him of normal echo performed on 10/21/[address] Dyer. Normal [facility] Office Visiton 10-03-2023 Follow-up visit [id number] Loco Alicia 1955 M Date Provider Department Center 10/03/2023 3848-EDNA BOUDREAUX [facility] Family History Problem Relation Age of Onset Coronary artery disease Father Heart attack Father Hypertension Brother Atrial fibrillation Brother Family Status - Relation Status Age at Father Brother Level of Service:08871 DE OFFICE/OUTPATIENT ESTABLISHED LOW MDM 20 MIN Normal [facility] XR LUMBAR SPINE 2-3 VIEWS (S TANDARD)on [...] facet arthropathy without acute abnormality.JENNIFFER/Suhail kstation ID: [id number] by: JUDSON HUNTLEY on FriSep 10, 2017 4:19:46 PM EDTTranscribed by: EVANGELISTA VALDEZ on FriSep 10, 2017 4:44:25 PM EDTFinalized by: JUDSON HUNTLEY on FriSep 10, 2017 5:57:49 PM EDT Normal [facility] Comment on above: Order Comment: Reaso [...] lower lumbar facet arthropathy without acute abnormality. [employer] Workstation ID: [id number] Invalid Interpretation Code [facility] [place] XR Lumbar Spine 2-3 Views (Standard) EXAMINATION: [...] in the right abdomen. Invalid Interpretation Code [facility] [place] XR Lumbar Spine 2-3 Views (Standard) Interface, Rad In [employer] - 09/10/2017 6:00 PM EDT EXAMINATION: XR [...] lower lumbar facet arthropathy without acute abnormality. [employer] Workstation ID: [id number] Invalid [facility]ation [facility] Vital Signs Date Time Vital Sign Value Performing Clinician Jennifer alcala 09-15-2024 13:22-040 Body height 171.5 cm Leah Olson COMMUNITY PLACEMENT WORKER Work Phone: [facility] 09-15-2024 13:22-0400 Body mass index (BMI) [Ratio] 24.01 kg/m2 Leah Olson COMMUNITY PLACEMENT WORKER Work Phone: [facility] 09-15-2024 13:22-0400 Body temperature 98.01 [degF] Leah Olson COMMUNITY PLACEMENT WORKER Work Phone: [facility] 09-15-2024 13:22-0400 Body weight 70.58 kg Leah Olson COMMUNITY PLACEMENT WORKER Work Phone: [facility] 09-15-2024 13:22-0400 Diastolic blood pressure 80 mm[Hg] Leah Olson COMMUNITY PLACEMENT WORKER Work Phone: [facility] 09-15-2024 13:22-0400 Heart rate 80 /min Leah Olson COMMUNITY PLACEMENT WORKER Work Phone: [facility] 07-23-2025 13:22-0400 Respiratory rate 20 /min Leah Jazminholz COMMUNITY PLACEMENT WORKER Work Phone: [facility] 09-15-2024 13:22-0400 SaO2% (BldA) [Mass fraction] 96 % Leah Lchholz COMMUNITY PLACEMENT WORKER Work Phone: [facility] 09-15-2024 13:22-0400 Systolic blood pressure 140 mm[Hg] Leah Aichholz COMMUNITY PLACEMENT WORKER Work Phone: [facility] 06-16-2024 13:06-0400 Body mass index (BMI) [Ratio] 23.24 kg/m2 Leah Aichholz COMMUNITY PLACEMENT WORKER Work Phone: [facility] 06-16-2024 13:06-0400 Body temperature 97.81 [degF] Leah Lchholz COMMUNITY PLACEMENT WORKER Work Phone: [facility] 06-16-2024 13:06-0400 Body weight 71.4 kg Leah Lchholz COMMUNITY PLACEMENT WORKER Work Phone: [facility] 06-16-2024 13:06-0400 Diastolic blood pressure 80 mm[Hg] Leah Aichholz COMMUNITY PLACEMENT WORKER Work Phone: [facility] 06-16-2024 13:06-0400 Heart rate 89 /min Leah Aichholz COMMUNITY PLACEMENT WORKER Work Phone: [facility] 06-16-2024 13:06-0400 Respiratory rate 18 /min Leah Aichholz COMMUNITY PLACEMENT WORKER Work Phone: [facility] 06-16-2024 13:06-0400 SaO2% (BldA) [Mass fraction] 92 % Leah Aichholz COMMUNITY PLACEMENT WORKER Work Phone: [facility] 06-16-2024 13:06-0400 Systolic blood pressure 132 mm[Hg] Leah Aichholz COMMUNITY PLACEMENT WORKER Work Phone: [facility] 12-17-2023 13:44-0400 Body height 175.3 cm Leah Aichholz COMMUNITY PLACEMENT WORKER Work Phone: [facility] 12-17-2023 13:44-0400 Body mass index (BMI) [Ratio] 22.39 kg/m2 Leahmirna Sanchezz COMMUNITY PLACEMENT WORKER Work Phone: [facility] 12-17-2023 13:44-0400 Body temperature 98.1 [degF] Leah Sanchezz COMMUNITY PLACEMENT WORKER Work Phone: [facility] 12-17-2023 13:44-0400 Body weight 68.77 kg Leah Jazminholz COMMUNITY PLACEMENT WORKER Work Phone: [facility] 12-17-2023 13:44-0400 Diastolic blood pressure 80 mm[Hg] Leah Lchholz COMMUNITY PLACEMENT WORKER Work Phone: [facility] 12-17-2023 13:44-0400 Heart rate 76 /min Leah Jazminholz COMMUNITY PLACEMENT WORKER Work Phone: [facility] 12-17-2023 13:44-0400 Respiratory rate 19 /min Leah Jazminholz COMMUNITY PLACEMENT WORKER Work Phone: [facility] 12-17-2023 13:44-0400 SaO2% (BldA) [Mass fraction] 97 % Leah Jazminholz COMMUNITY PLACEMENT WORKER Work Phone: [facility] 12-17-2023 13:44-0400 Systolic blood pressure 130 mm[Hg] Leah Wuholz COMMUNITY PLACEMENT WORKER Work Phone: [facility] 04-01-2023 14:11-0500 Body height 175.3 cm Leah Jazminholz COMMUNITY PLACEMENT WORKER Work Phone: [facility] 04-01-2023 14:11-0500 Body mass index (BMI) [Ratio] 22.95 kg/m2 Leah Jazminholz COMMUNITY PLACEMENT WORKER Work Phone: [facility] 04-01-2023 14:11-0500 Body temperature 98.2 [degF] Leah Jazminholz COMMUNITY PLACEMENT WORKER Work Phone: [facility] 04-01-2023 14:11-0500 Body weight 70.49 kg Leah Jazminholz COMMUNITY PLACEMENT WORKER Work Phone: [facility] 04-01-2023 14:11-0500 Diastolic blood pressure 82 mm[Hg] Leah Plattkelli COMMUNITY PLACEMENT WORKER Work Phone: [facility] 04-01-2023 14:11-0500 Heart rate 95 /min Leah Lauraz COMMUNITY PLACEMENT WORKER Work Phone: [facility] 04-01-2023 14:11-0500 Respiratory rate 18 /min Leah Plattkelli COMMUNITY PLACEMENT WORKER Work Phone: [facility] 04-01-2023 14:11-0500 SaO2% (BldA) [Mass fraction] 99 % Leah Wesley COMMUNITY PLACEMENT WORKER Work Phone: [facility] 04-01-2023 14:11-0500 Systolic blood pressure 124 mm[Hg] Leah Wesley COMMUNITY PLACEMENT WORKER Work Phone: [facility] Healthcare Encounters Encounter Date Encounter Type Care Provider Facility Start: 09-15-2024 End: 09-15-2024 Bamboo flowsheet Leah Wesley COMMUNITY PLACEMENT WORKER Work Phone: [facility] Start: 09-15-2024 End: 09-15-2024 Bamboo flowsheet Leah Wesley COMMUNITY PLACEMENT WORKER Work Phone: [facility] Start: 09-15-2024 End: 09-15-2024 ambulatory LEAH WESLEY Not Available Start: 09-15-2024 End: 09-15-2024 Office outpatient visit 15 minutes Leah Wesley COMMUNITY PLACEMENT WORKER Work Phone: [facility] Comment on above: Primary hypertension (Primary Dx); COPD mixed type (HCC); Tobacco dependence; Medical non-compliance; Pulmonary hypertension (HCC); RLS (restless legs syndrome); Cervical pain (neck) Start: 06-16-2024 End: 06-16-2024 Bamboo flowsheet Leah Olson COMMUNITY PLACEMENT WORKER Work Phone: [facility] Start: 06-16-2024 End: 06-16-2024 Bamboo flowsheet Leahmirna Sanchezz COMMUNITY PLACEMENT WORKER Work Phone: [facility] Start: 06-16-2024 End: 06-16-2024 ambulatory LEAH OLSON Not Available Start: 06-16-2024 End: 06-16-2024 Office outpatient visit 25 minutes Leah Olson COMMUNITY PLACEMENT WORKER Work Phone: [facility] Comment on above: Primary hypertension (CMS/HCC) (Primary Dx); Crohn's disease, unspecified, without complications (CMS/HCC); COPD mixed type (CMS/HCC); Pulmonary hypertension (CMS/HCC); Crohn's disease without complication, unspecified gastrointestinal tract location (CMS/HCC); Tobacco dependence; Chronic midline thoracic back pain; Arthralgia, unspecified joint; Lung cancer screening declined by patient Start: 03-05-2024 End: 03-05-2024 ambulatory [facility] Start: 12-17-2023 End: 12-17-2023 Bamboo flowsheet Leah Olson COMMUNITY PLACEMENT WORKER Work Phone: [facility] Start: 12-17-2023 End: 12-17-2023 Bamboo flowsheet Leah Olson COMMUNITY PLACEMENT WORKER Work Phone: [facility] Start: 12-17-2023 End: 12-17-2023 ambulatory LEAH OLSON Not Available Start: 12-17-2023 End: 12-17-2023 Office outpatient visit 25 minutes Leah Olson COMMUNITY PLACEMENT WORKER Work Phone: [facility] Comment on above: Crohn's disease with out complication, unspecified gastrointestinal tract location (CMS/HCC) (Primary Dx); Tobacco user; Pulmonary hypertension (CMS/HCC); History of kidney cancer; Screening for prostate cancer; Needs flu shot; RLS (restless legs syndrome) Start: 10-03-2023 End: 10-03-2023 ambulatory [facility] Start: 09-16-2023 Patient encounter procedure Leah Olson COMMUNITY PLACEMENT WORKER Work Phone: [facility] Start: 04-01-2023 End: 04-01-2023 Office outpatient visit 15 minutes Leah Olson NP Work Phone: [facility] Comment on above: Pulmonary hypertensi on (CMS/HCC) (Primary Dx); Crohn's disease without complication, unspecified gastrointestinal tract location (CMS/HCC); Tobacco user; Anxiety Start: 04-27-2020 End: 04-27-2020 Orders Only Aspen Nieto Paulo Work Phone: [facility] Start: 09-10-2017 End: 09-11-2017 Patient encounter KIRSTIE TONY GABINO [facility] Start: 09-10-2017 End: 09-10-2017 Patient encounter Kirstie Ordonez [facility] Work Phone: [facility] Diagn[facility] Plan of Treatment Date Care Activity Detail Author Start: 12-16-2024 End: 12-16-2024 Patient encounter procedure 12/16/2024 1:20 PM EDT Office Visit [facility] [address] [place] [address] Leah Olson, JEN [address] [place] [phone] [facility] Start: 10-25-2024 Influenza vaccination Influenza Vacc ine (#1) [facility] Start: 09-20-2024 End: 09-20-2024 Patient encounter procedure 09/20/2024 4:30 PM EDT Office Visit [facility] [address] [place] [address] Leah Olson NP [address] [place] [phone] [facility] Start: 09-15-2024 Medicare Annual Well ness (AWV) Medicare Annual Wellness (AWV) [facility] Start: 09-15-2024 End: 09-15-2024 Patient encounter procedure 09/15/2024 1:20 PM EDT Office Visit [facility] [address] [place] [phone] Leah Olson NP [address] [place] [address] [facility] Start: 06-16-2024 End: 06-16-2025 Nuclear Ab [Titer] in Serum by Immunofluorescence [facility] Lab Routine Arthralgia, unspecified joint Expected: 06/16/2024 (Approximate), Expires: 06/16/2025 [facility] Comment on above: Expected: 06/16/2024 (Approximate), Expires: 06/16/2025 Start: 06-16-2024 End: 06-16-2025 Rheumatoid factor [Units/volume] in Serum or Plasma Rheumatoid factor Lab Routine Arthralgia, unspecified joint Expected: 06/16/2024 (Approximate), Expires: 06/16/2025 [facility] Comment on above: Expected: 06/16/2024 (Approximate), Expires: 06/16/2025 Start: 06-16-2024 End: 06-16-2025 Urate [Mass/volume] in Serum or Plasma Uric acid Lab Routine Arthralgia, unspecified joint Expected: 06/16/2024 (Approximate), Expires: 06/16/2025 [facility] Comment on above: Expected: 06/16/2024 (Approximate), Expires: 06/16/2025 Start: 06-16-2024 End: 06-16-2025 XR Thoracic spine 3 Views XR thoracic spine 3 views Imaging Routine Chronic midline thoracic back pain Expected: 06/16/2024 (Approximate), Expires: 06/16/2025 [facility] Work Phone: Comment on above: Expected: 06/16/2024 (Approximate), Expires: 06/16/2025 Start: 06-16-2024 End: 06-16-2024 Patient encounter procedure 06/16/2024 1:00 PM EDT Office Visit [facility] [address] [place] [phone] Leah Olson, JEN [address] [place] [phone] [facility] Start: 12-17-2023 End: 12-16-2024 CBC W Auto Differential panel - Blood CBC and differential Lab Routine Tobacco user History of kidney cancer Expected: 12/17/2023 (Approximate), Expires: 12/16/2024 [facility] Comment on above: Expected: 12/17/2023 (Approximate), Expires: 12/16/2024 Start: 12-17-2023 End: 12-16-2024 Comprehensive metabolic 2000 panel - Serum or Plasma Comprehensive metabolic panel Lab Routine Pulmonary hypertension (CMS/HCC) History of kidney cancer Expected: 12/17/2023 (Approximate), Expires: 12/16/2024 [facility] Comment on above: Expected: 12/17/2023 (Approximate), Expires: 12/16/2024 Start: 12-17-2023 End: 12-16-2024 Prostate specific Ag [Mass/volume] in Serum or Plasma PSA Lab Routine Screening for prostate cancer Expected: 12/17/2023 (Approximate), Expires: 12/16/2024 [facility] Work Phone: Comment on above: Expected: 12/17/2023 (Approximate), Expires: 12/16/2024 Start: 12-17-2023 End: 12-16-2024 Urinalysis complete panel - Urine Urinalysis with reflex microscopic (clean catch) Lab Routine History of kidney cancer Expected: 12/17/2023 (Approximate), Expires: 12/16/2024 [facility] Comment on above: Expected: 12/17/2023 (Approximate), Expires: 12/16/2024 Start: 10-26-2023 Influenza vaccination Influenza Vacc ine (#1) [facility] Start: 08-24-2023 Influenza vaccination Influenza Vacc ine (#1) [facility] Comment on above: Postponed from 10/25 (Patient Does Not Have Time) Start: 05-14-2023 End: 05-14-2023 Patient encounter procedure 05/14/2023 1:40 PM EDT Office Visit [facility] [address] [place] [phone] Leah Olson NP [address] [place] [address] [facility] Start: 04-24-2023 Pneumococcal Vaccine : 65+ Years (1 - PCV) Pneumococcal Vaccine: 65+ Years (1 - PCV) [facility] Comment on above: Postponed from 10/27 (Patient Does Not Have Time) Start: 10-26-2019 Influenza vaccination given Se quential Influenza Vaccine (#1) [facility] Start: 10-25-2017 Influenza vaccination SEQUENTI AL INFLUENZA VACCINE (#1) [facility] Start: 2016 Zoster vaccine hzv l dinh for subcutaneous use ZOSTER VACCINE [facility] Start: 2006 Administration of he rpes zoster vaccine Zoster Vaccines (1 of 2) [facility] Start: 2006 Screening for malign ant neoplasm of colon [facility] Start: 1974 Hepatitis C antibody , confirmatory test Hepatitis C Screening [facility] Start: 1972 COVID-19 Vaccine (1 of 2) COVI D-19 Vaccine (1 of 2) [facility] Start: 10-28-1971 HIV screening HIV Screening [facility] Start: 1968 Adolescent depressio n screening assessment Depression Screening (PHQ9) [facility] Start: 10-28-1959 History and physical examination, annual for health maintenance Wellness Visit [facility] Start: 1956 Medicare Annual Well ness (AWV) Medicare Annual Wellness (AWV) [facility] Start: 1956 Prostate specific an tigen measurement PSA Level [facility] Start: 1956 HEPATITIS C SCREENING HEPATITIS C SC REENING [facility] Start: 1956 Screening colonoscopy [facility]COPY [facility] Start: 1956 End: 1956 Tetanus vaccination [facility] Immunization Immunization Date Immunization Notes Care Provider Fa cility 12-17-2023 Seasonal trivalent influenza vaccine, adjuvanted, preservative free Leah Olson NP Work Phone: [facility] 12-17-2023 influenza virus vacc ine, unspecified formulation Leah Olson NP Work Phone: [facility] Payers Date Payer Category Payer Medicare [id number] 2024 Medicare [id number] 2023 Medicare (Managed Care) [id number] 2023 Medicare [id number] 2019 Medicare MEDICARE [id number] 2019 Medicare [id number] 1955 Unknown [id number] 1956 Unknown [id number] 1955 Unknown [id number] Social History Date Type Detail Facility Tobacco smoking stat us [facility] Unknown if ever smoked [facility] Start: 1955 Sex Assigned At Not on file [facility] Start: 03-26-2023 End: 07-17-2023 Tobacco smoking status INIS Smokes tobacco daily [facility] History of tobacco use Cigarette Smoker [facility] Start: 03-26-2023 End: 09-16-2023 Cigarettes smoked current (pack per day) - Reported 1 [facility] Start: 04-01-2023 End: 09-16-2023 Tobacco use panel [facility] History of tobacco use Passive smoker [facility] Start: 09-16-2023 End: 09-15-2024 Alcoholic beverage intake Lifetime non-drinker (finding) [facility] Clinical Notes 04-01-2023 to 09-15-2024 Leah Olson NP - 09/15/2024 3:11 PM EDTHKEVIN TREJO - 09/15/2024 1:20 PM Kyle Olson NP - 09/15/2024 1:20 PM Kyle Olson NP - 09/15/2024 6:49 AM EDTPatient Instructions Note Date & Type Note Facility 09-15-2024 History of Present illness Narrative Associated Problem(s): Pulmonary hypertension (HCC) Cardiology [facility], last appt 03/20 They recommend further testing w cath R/L he declined Was prescribed hydrochlorothiazide, and b nadeem Pt is unsure if he has ever had an albuterol inhaler but he would take one if he can get it Pt needs refills on everything Images from the original note were not included. Mir Simmons is a 68 y.o. male presents with chief complaint of Hypertension HPI: Here for recheck he has not gotten his labs completed, he was fearful that all testing order was for cancer testing He denies any new sxs, he is taking his meds as directed as well. SUBJECTIVE: MEDICATIONS: Current Outpatient Medications Medication Instructions albuterol HFA 90 mcg/act inhaler 2 puffs, Inhalation, Every 6 hours PRN aspirin 81 mg, Oral, Daily RT, Take 81 mg by mouth in the morning. carvedilol (COREG) 3.125 mg, Oral, 2 times daily with meals hydroCHLOROthiazide (HYDRODIURIL) 25 mg, Oral, Daily rOPINIRole (REQUIP) 0.5 mg, Oral, Nightly tiZANidine (ZANAFLEX) 4 mg, Oral, Nightly PRN, May cause drowsiness ALLERGIES: No Known Allergies REVIEW OF SYMPTOMS: Review of Systems Constitutional: Negative for activity change, appetite change and unexpected weight change. HENT: Negative for ear pain, nosebleeds, sneezing, trouble swallowing and voice change. Eyes: Negative for pain, discharge and visual disturbance. Respiratory: Negative for apnea, chest tightness and wheezing. Cardiovascular: Negative for leg swelling. Gastrointestinal: Negative for abdominal distention, blood in stool, constipation and diarrhea. Genitourinary: Negative for decreased urine volume, difficulty urinating, dysuria and hematuria. Musculoskeletal: Positive for arthralgias. Skin: Negative for color change. Neurological: Negative [...] Diagnosis Date Anxiety Arthritis Cancer of kidney (HCC) Crohn's disease (HCC) Family history of coronary arteriosclerosis Fatigue Insomnia 04/01/2023 Neck pain RLS (restless legs syndrome) Testosterone deficiency Tobacco user Past Surgical History: Procedure Laterality Date COLECTOMY x2 NEPHRECTOMY 2013 family history is not on file. OBJECTIVE: Visit Vitals BP 140/80 (BP Location: Left arm, Patient Position: Sitting, BP Cuff Size: Adult long) Pulse 80 Temp 98 F (Temporal) Resp 20 Ht 5' 7.5 Wt 155 lb 9.6 oz SpO2 96% BMI 24.01 kg/m Smoking Status Every Day BSA 1.83 m Physical Exam Vitals and nursing note reviewed. Constitutional: Appearance: Normal appearance. HENT: Head: Normocephalic. Right Ear: External ear normal. Left Ear: External ear normal. Nose: Nose normal. Mouth/Throat: Mouth: Mucous membranes are moist. Pharynx: Oropharynx is clear. Eyes: Extraocular Movements: Extraocular movements intact. Conjunctiva/sclera: Conjunctivae normal. Neck: Vascular: No carotid bruit. Cardiovascular: Rate and Rhythm: Normal rate and regular rhythm. Pulses: Normal pulses. Heart sounds: Normal heart sounds. No murmur heard. Pulmonary: Effort: Pulmonary effort is normal. Breath sounds: Normal breath sounds. No wheezing or rhonchi. Abdominal: General: Bowel sounds are normal. Palpations: Abdomen is soft. Tenderness: There is no abdominal tenderness. There is no rebound. Musculoskeletal: Cervical back: Neck supple. Right lower leg: No edema. Left lower leg: No edema. Skin: General: Skin is warm and dry. Capillary Refill: Capillary refill takes 2 to 3 seconds. Neurological: General: No focal deficit present. Mental Status: He is alert. Psychiatric: Mood and Affect: Mood normal. Behavior: Behavior normal. Thought Content: Thought content normal. Judgment: Judgment normal. ASSESSMENT AND PLAN: Follow up in about 3 months (around 12/16/2024) for Recheck. Problem List Items Addressed This Visit RLS (restless legs syndrome) Relevant Medications rOPINIRole (Requip) 0.5 MG tablet Pulmonary hypertension (HCC) Cardiology [facility], last appt 03/20 They recommend further testing w cath R/L he declined Was prescribed hydrochlorothiazide, and b nadeem Relevant Medications hydroCHLOROthiazide (HYDRODiuril) 25 MG tablet Cervical pain (neck) Relevant Medications tiZANidine (Zanaflex) 4 MG tablet COPD mixed type (HCC) Albuterol prn PFT's from 09/16: FVC 86%, FEV1 79%, and FEV1/FVC 69% Relevant Medications albuterol HFA 90 mcg/act inhaler Tobacco dependence The patient has been advised of the risks of continued smoking: stroke, AL, all forms of cancer, lung disease, and . Options for quitting smoking include: cold turkey, hypnosis, acupuncture, nicotine replacement meds (gum, lozenges, and patches), Buproprion, and Varenicline. At this time pt is encouraged to evaluate their goals for wanting to quit smoking, and reach out to provider when ready to start this process Primary hypertension - Primary Please check blood pressure daily and record DASH diet Limit caffeine Take medication as directed Contact office if chest pain, pressure, dizziness, shortness of breath, swelling legs Recommend slow position changes Current meds: hydrochlorothiazide, carvediolol Relevant Medications aspirin 81 MG EC tablet carvedilol (Coreg) 3.125 MG tablet Medical non-compliance Labs ordered in 12/17 as well as additional labs in 06/18 to date still not completed I did discuss the rationale for ordering and w exception of PSA testing no cancer He verbalizes understanding and will complete this Associated Problem(s): Medical non-compliance Labs ordered in 12/17 as well as additional labs in 06/18 to date still not completed I did discuss the rationale for ordering and w exception of PSA testing no cancer He verbalizes understanding and will complete this Associated Problem(s): Tobacco dependence The patient has been advised of the risks of continued smoking: stroke, AL, all forms of cancer, lung disease, and . Options for quitting smoking include: cold turkey, hypnosis, acupuncture, nicotine replacement meds (gum, lozenges, and patches), Buproprion, and Varenicline. At this time pt is encouraged to evaluate their goals for wanting to quit smoking, and reach out to provider when ready to start this process Associated Problem(s): COPD mixed type (HCC) Albuterol prn PFT's from 09/16: FVC 86%, FEV1 79%, and FEV1/FVC 69% Associated Problem(s): Primary hypertension Please check blood pressure daily and record DASH diet Limit caffeine Take medication as directed Contact office if chest pain, pressure, dizziness, shortness of breath, swelling legs Recommend slow position changes Current meds: hydrochlorothiazide, carvediolol documented in this encounter [facility] 09-15-2024 Instructions Leah Olson NP - 09/15/2024 1:20 PM EDT Labs please complete As well as xray documented in this encounter [facility] 06-16-2024 History of Present illness Narrative Associated Problem(s): Lung cancer screening declined by patient Declines being tested Associated Problem(s): Primary hypertension (CMS/HCC) Please check blood pressure daily and record DASH diet Limit caffeine Take medication as directed Contact office if chest pain, pressure, dizziness, shortness of breath, swelling legs Recommend slow position changes Current meds: hydrochlorothiazide, carvediolol Right elbow pain- anytime he hits it it feels like a stabbing pain Pt has been having a lot of joint pain and back pain recently Pt is showing signs of being very fidgety and anxious Humming while messing with gadgets and keys, pt kept sunglasses on while head was down Images from the original note were not included. Mir Simmons is a 68 y.o. male presents with chief complaint of No chief complaint on file. HPI: A lot of wide spread joint pain, some swelling worse in the hands, some times hard to get rings off May have been told he had RA in the past?? Hypertension This is a chronic problem. The current episode started more than 1 year ago. The problem is unchanged. The problem is controlled. Pertinent negatives include no peripheral edema or shortness of breath. There are no associated agents to hypertension. Risk factors for coronary artery disease include male gender. Past treatments include beta blockers and diuretics. The current treatment provides significant improvement. SUBJECTIVE: MEDICATIONS: Current Outpatient Medications Medication Instructions albuterol HFA 90 mcg/act inhaler 2 puffs, Inhalation, Every 6 hours PRN aspirin 81 mg, Oral, Daily RT carvedilol (COREG) 3.125 mg, 2 times daily with meals hydroCHLOROthiazide (HYDRODIURIL) 25 mg, Oral, Daily rOPINIRole (REQUIP) 0.5 mg, Oral, Nightly tiZANidine (ZANAFLEX) 4 mg, Oral, Nightly PRN, May cause drowsiness ALLERGIES: No Known Allergies REVIEW OF SYMPTOMS: Review of Systems Constitutional: Negative for activity change, appetite change and unexpected weight change. HENT: Negative for ear pain, nosebleeds, sneezing, trouble swallowing and voice change. Eyes: Negative for pain, discharge and visual disturbance. Respiratory: Negative for apnea, chest tightness, shortness of breath and wheezing. Cardiovascular: Negative for leg swelling. Gastrointestinal: Negative for abdominal distention, blood in stool, constipation and diarrhea. Genitourinary: Negative for decreased urine volume, difficulty urinating, dysuria and hematuria. Musculoskeletal: Positive for arthralgias and back pain. Skin: Negative for color change. Neurological: Negative for dizziness, tremors and seizures. Psychiatric/Behavioral: Positive for sleep disturbance. Negative for agitation, decreased concentration, hallucinations, self-injury and suicidal ideas. The patient is not nervous/anxious. Hematological: Negative for adenopathy. Does not bruise/bleed easily. Endocrine: Negative for cold intolerance, heat intolerance, polydipsia and polyuria. Allergic/Immunologic: Negative for environmental allergies and food allergies. PAST MEDICAL HISTORY Past Medical History: Diagnosis Date Anxiety Arthritis Cancer of kidney ([facility]) Crohn's disease ([facility]) Family history of coronary arteriosclerosis Fatigue Insomnia 04/01/2023 Neck pain RLS (restless legs syndrome) Testosterone deficiency Tobacco user Past Surgical History: Procedure Laterality Date COLECTOMY x2 NEPHRECTOMY 2013 family history is not on file. OBJECTIVE: Visit Vitals BP 132/80 (BP Location: Left arm, Patient Position: Sitting, BP Cuff Size: Adult long) Pulse 89 Temp 97.8 F (Temporal) Resp 18 Wt 157 lb 6.4 oz SpO2 92% BMI 23.24 kg/m Smoking Status Every Day BSA 1.86 m Physical Exam Vitals and nursing note reviewed. Constitutional: Appearance: Normal appearance. HENT: Head: Normocephalic. Right Ear: External ear normal. Left Ear: External ear normal. Nose: Nose normal. Mouth/Throat: Mouth: Mucous membranes are moist. Pharynx: Oropharynx is clear. Eyes: Extraocular Movements: Extraocular movements intact. Conjunctiva/sclera: Conjunctivae normal. Neck: Vascular: No carotid bruit. Cardiovascular: Rate and Rhythm: Normal rate and regular rhythm. Pulses: Normal pulses. Heart sounds: Normal heart sounds. No murmur heard. Pulmonary: Effort: Pulmonary effort is normal. Breath sounds: Normal breath sounds. No wheezing or rhonchi. Abdominal: General: Bowel sounds are normal. Palpations: Abdomen is soft. Musculoskeletal: Cervical back: Neck supple. Right lower leg: No edema. Left lower leg: No edema. Comments: Tender joints Tenderness to t spine: level T9 Lymphadenopathy: Cervical: No cervical adenopathy. Skin: General: Skin is warm and dry. Capillary Refill: Capillary refill takes 2 to 3 seconds. Neurological: General: No focal deficit present. Mental Status: He is alert. Psychiatric: Mood and Affect: Mood normal. Behavior: Behavior normal. Thought Content: Thought content normal. Judgment: Judgment normal. ASSESSMENT AND PLAN: Follow up in about 3 months (around 09/15/2024) for Recheck. Problem List Items Addressed This Visit Crohn's disease (CMS/HCC) In the past, pt was requesting mesalamine script for treatment prn. I explained to pt that this really should be coming from GI specialist, and at that time he refused to see a new GI Pulmonary hypertension (CMS/HCC) Cardiology [facility], last appt 03/20 They recommend further testing w cath R/L he declined Was prescribed hydrochlorothiazide, and b nadeem Relevant Medications hydroCHLOROthiazide (HYDRODiuril) 25 MG tablet COPD mixed type (CMS/HCC) Albuterol prn PFT's from 09/16: FVC 86%, FEV1 79%, and FEV1/FVC 69% Chronic midline thoracic back pain Relevant Orders XR thoracic spine 3 views RESOLVED: Crohn's disease, unspecified, without complications (CMS/HCC) Tobacco dependence The patient has been advised of the risks of continued smoking: stroke, AL, all forms of cancer, lung disease, and . Options for quitting smoking include: cold turkey, hypnosis, acupuncture, nicotine replacement meds (gum, lozenges, and patches), Buproprion, and Varenicline. At this time pt is encouraged to evaluate their goals for wanting to quit smoking, and reach out to provider when ready to start this process Primary hypertension (CMS/HCC) - Primary Please check blood pressure daily and record DASH diet Limit caffeine Take medication as directed Contact office if chest pain, pressure, dizziness, shortness of breath, swelling legs Recommend slow position changes Current meds: hydrochlorothiazide, carvediolol Arthralgia Relevant Orders Rheumatoid factor CHANELLE Uric acid Lung cancer screening declined by patient Declines being tested Associated Problem(s): Tobacco dependence The patient has been advised of the risks of continued smoking: stroke, AL, all forms of cancer, lung disease, and . Options for quitting smoking include: cold turkey, hypnosis, acupuncture, nicotine replacement meds (gum, lozenges, and patches), Buproprion, and Varenicline. At this time pt is encouraged to evaluate their goals for wanting to quit smoking, and reach out to provider when ready to start this process Associated Problem(s): Crohn's disease (CMS/HCC) In the past, pt was requesting mesalamine script for treatment prn. I explained to pt that this really should be coming from GI specialist, and at that time he refused to see a new GI Associated Problem(s): Pulmonary hypertension (CMS/HCC) Cardiology [facility], last appt 03/20 They recommend further testing w cath R/L he declined Was prescribed hydrochlorothiazide, and b nadeem Associated Problem(s): COPD mixed type (CMS/HCC) Albuterol prn PFT's from 09/16: FVC 86%, FEV1 79%, and FEV1/FVC 69% documented in this encounter [facility] 06-16-2024 Instructions Leah Olson NP - 06/16/2024 1:00 PM EDT Get labs complted not fasting documented in this encounter [facility] 03-05-2024 Note Cardiology Clinic No te HPI: GUTIERREZ Alicia is a 68 y.o. male With a past medical history [...] Otherwise, no significant abnormalities on echocardiogram. Patient here for 6 mo follow up pulmonary hypertension and chest pain. Says he has not been taking hydrochlorothiazide very often. Continues to have rare episodes of aytpical chest pain. Pain occurs at rest only, no chest pain with exertion.. Says he has been experiencing palpitations on occasion. NO additional complaints. Cardiology ROS: 10 point ROS is performed and is negative unless otherwise specified in HPI. Past Medical History He has a past medical history of Cancer (CMS/HCC), Crohn disease (CMS/HCC), Hypertension, and Pulmonary hypertension (CMS/HCC). Surgical History He has a past surgical history that includes Abdominal surgery. Social History He reports that he has been smoking cigarettes. He has never used smokeless tobacco. He reports that he does not drink alcohol. No history on file for drug use. Family History Family History Problem Relation Name Age of Onset Coronary artery disease Father Heart attack Father Hypertension Brother Atrial fibrillation Brother Medications Current Outpatient Medications on File Prior to Visit Medication Sig Dispense Refill aspirin 81 mg EC tablet Take 81 mg by mouth in the morning. hydroCHLOROthiazide (HYDRODiuril) 25 mg tablet Take 1 tablet (25 mg) by mouth in the morning. 90 tablet 3 rOPINIRole (Requip) 0.5 mg tablet Take 1 tablet by mouth if needed. tiZANidine (Zanaflex) 4 mg tablet Take 4 mg by mouth if needed each day. No current facility-administered medications on file prior to visit. Allergies Patient has no known allergies. Physical Exam VITAL SIGNS: BP 148/88 (BP Location: Left arm, Patient Position: Sitting) Pulse 78 Ht 1.753 m (5' 9 ) Wt 69.4 kg (153 lb) SpO2 97% BMI 22.59 kg/m??? Constitutional: Well developed, Well nourished, No [...] Mood normal. Impression: -Chest pain, atypical in nature. Only at rest, no pain at exertion -Palpitation, no sustained arrythmias. Wore 30 day monitor for only 1 day -Tobacco abuse -Pulmonary hypertension on echocardiogram, not taking HCTZ -Hypertension, not taking HCTZ Plan: -Emphasized importance of adherence to medication regimen. Recommend hydrochlorothiazide 25 mg daily for both hypertension and elevated pulmonary pressures. -Again discussed L/R/Cors to assess for CAD and to measure pressures. Patient declines -Will add coreg for HTN and palpitations -I spent 7 minutes counseling the patient [...] or concerns. Edna Boudreaux MD Interventional Cardiology [facility] 12-17-2023 History of Present illness Narrative Associated Problem(s): History of kidney cancer No current symptoms Associated Problem(s): RLS (restless legs syndrome) Continue current meds Associated Problem(s): Crohn's disease (CMS/HCC) Requesting mesalamine script for treatment prn I explained to pt that this really should be coming from GI specialist At this time he refuses to see a new GI Will reach out if he changes his mind Associated Problem(s): Pulmonary hypertension (CMS/HCC) Was referred to Cardiology They recommend further testing w cath R/L he declined Was prescribed HCTZ Images from the original note were not included. Mir Simmons is a 68 y.o. male presents with chief complaint of No chief complaint on file. HPI: Here for recheck: Since last visit has seen cardiology, see their notes he does get chest pain ususally with irritated and arguing. Refuses to have heart cath Hx of Crohn's disease: used to treat with dr delgado, a lot of scar tissue, does get episodes of sharp abd pain, and would like a refill of mesalamine, does not want to see a new GI and does not want any scopes SUBJECTIVE: MEDICATIONS: Current Outpatient Medications Medication Instructions albuterol HFA 90 mcg/act inhaler 2 puffs, Inhalation, Every 6 hours PRN hydroCHLOROthiazide (HYDRODIURIL) 25 mg, Oral, Daily RT rOPINIRole (REQUIP) 0.5 mg, Oral, Nightly tiZANidine (ZANAFLEX) 4 mg, Oral, Nightly PRN, May cause drowsiness ALLERGIES: No Known Allergies REVIEW OF SYMPTOMS: Review of Systems Constitutional: Negative for activity change, appetite change and unexpected weight change. HENT: Negative for ear pain, nosebleeds, sneezing, trouble swallowing and voice change. Eyes: Negative for pain, discharge and visual disturbance. Respiratory: Negative for apnea, chest tightness and wheezing. Cardiovascular: Positive for chest pain. Negative for leg swelling. Gastrointestinal: Positive for abdominal distention. Negative for blood in stool, constipation and diarrhea. Genitourinary: Negative for decreased urine volume, difficulty urinating, dysuria and hematuria. Skin: Negative for color change. Neurological: Negative for dizziness, tremors and seizures. Psychiatric/Behavioral: Positive for agitation. Negative for decreased concentration, hallucinations, self-injury and suicidal ideas. The patient is nervous/anxious. Hematological: Negative for adenopathy. Does not bruise/bleed easily. Endocrine: Negative for cold intolerance, heat intolerance, polydipsia and polyuria. Allergic/Immunologic: Negative for environmental allergies and food allergies. PAST MEDICAL HISTORY Past Medical History: Diagnosis Date Anxiety Arthritis Cancer of kidney (CMS/HCC) Crohn's disease ([facility]/HCC) Family history of coronary arteriosclerosis Fatigue Insomnia 04/01/2023 Neck pain RLS (restless legs syndrome) Testosterone deficiency Tobacco user Past Surgical History: Procedure Laterality Date COLECTOMY x2 NEPHRECTOMY 2013 family history is not on file. OBJECTIVE: Visit Vitals BP 130/80 (BP Location: Left arm, Patient Position: Sitting, BP Cuff Size: Adult long) Pulse 76 Temp 98.1 F (Temporal) Resp 19 Ht 5' 9 Wt 151 lb 9.6 oz SpO2 97% BMI 22.39 kg/m Smoking Status Every Day BSA 1.83 m Physical Exam Vitals and nursing note reviewed. Constitutional: Appearance: Normal appearance. HENT: Head: Normocephalic. Right Ear: External ear normal. Left Ear: External ear normal. Nose: Nose normal. Mouth/Throat: Mouth: Mucous membranes are moist. Pharynx: Oropharynx is clear. Eyes: Extraocular Movements: Extraocular movements intact. Conjunctiva/sclera: Conjunctivae normal. Neck: Vascular: No carotid bruit. Cardiovascular: Rate and Rhythm: Normal rate and regular rhythm. Pulses: Normal pulses. Heart sounds: Normal heart sounds. Pulmonary: Effort: Pulmonary effort is normal. Breath sounds: Normal breath sounds. Abdominal: General: Bowel sounds are normal. There is no distension. Palpations: Abdomen is soft. There is no mass. Tenderness: There is no abdominal tenderness. There is no guarding. Hernia: No hernia is present. Musculoskeletal: Cervical back: Neck supple. Right lower leg: No edema. Left lower leg: No edema. Lymphadenopathy: Cervical: No cervical adenopathy. Skin: General: Skin is warm and dry. Capillary Refill: Capillary refill takes 2 to 3 seconds. Neurological: General: No focal deficit present. Mental Status: He is alert. Psychiatric: Mood and Affect: Mood normal. Behavior: Behavior normal. Thought Content: Thought content normal. Judgment: Judgment normal. ASSESSMENT AND PLAN: No follow-ups on file. Problem List Items Addressed This Visit RLS (restless legs syndrome) Continue current meds Crohn's disease (CMS/HCC) - Primary Requesting mesalamine script for treatment prn I explained to pt that this really should be coming from GI specialist At this time he refuses to see a new GI Will reach out if he changes his mind Tobacco user The patient has been advised of the risks of continued smoking: stroke, AL, all forms of cancer, lung disease, and . Options for quitting smoking include: cold turkey, hypnosis, acupuncture, nicotine replacement meds (gum, lozenges, and patches), Buproprion, and Varenicline. At this time pt is encouraged to evaluate their goals for wanting to quit smoking, and reach out to provider when ready to start this process Relevant Orders CBC and differential Pulmonary hypertension (CMS/HCC) Was referred to Cardiology They recommend further testing w cath R/L he declined Was prescribed HCTZ Relevant Orders Comprehensive metabolic panel History of kidney cancer No current symptoms Relevant Orders CBC and differential Comprehensive metabolic panel Urinalysis with reflex microscopic (clean catch) Screening for prostate cancer Relevant Orders PSA Needs flu shot Relevant Orders Flu vaccine, trivalent, adjuvanted, PF ([id number]) (Fluad trivalent single dose syringe) Associated Problem(s): Tobacco user The patient has been advised of the risks of continued smoking: stroke, AL, all forms of cancer, lung disease, and . Options for quitting smoking include: cold turkey, hypnosis, acupuncture, nicotine replacement meds (gum, lozenges, and patches), Buproprion, and Varenicline. At this time pt is encouraged to evaluate their goals for wanting to quit smoking, and reach out to provider when ready to start this process documented in this encounter [facility] 10-03-2023 Note Cardiology Clinic No te HPI: [...] or concerns. Edna Boudreaux MD Interventional Cardiology [facility] 04-01-2023 History of Present illness Narrative Associated Problem(s): Anxiety At this time he does not feel he needs medicated Associated Problem(s): Crohn's disease (CMS/HCC) Stable at this time Associated Problem(s): Pulmonary hypertension (CMS/HCC) Referred to [facility] Cardiology Appt made while pt was here for 04/11/23 Images from the original note were not included. Mir Simmons is a 67 y.o. male presents with chief complaint of No chief complaint on file. HPI: Here for recheck, since last visit had stress test and ECHO for chest pain, stress test was normal, however he did have elevated pressures on echo to suggest pulmonary hypertension, he was referrred to [facility] cardiology for evaluation, but never had [...] Arthritis Cancer of kidney (CMS/HCC) Crohn's disease ([facility]) Family history of coronary arteriosclerosis Fatigue [...] Pulmonary hypertension (CMS/HCC) - Primary Referred to [facility] Cardiology Appt made while pt was here for 04/11/23 Subjective Patient ID: Mir Simmons is a 67 y.o. male who presents for No chief complaint on file.. HPI Review of Systems Objective Physical Exam Assessment/Plan Patient ID: Mir Simmons is a 67 y.o. male. Procedures documented in this encounter [facility] Evaluation note Diagnosis Pulmonary hypertension (CMS/HCC)- Primary Other chronic pulmonary heart diseases Crohn's disease without complication, unspecified gastrointestinal tract location (CMS/HCC) Tobacco user Tobacco use disorder Anxiety Anxiety state, unspecified documented [facility] Diagnosis Pulmonary hypertension (CMS/HCC)- Primary Other chronic pulmonary heart diseases Crohn's disease without complication, unspecified gastrointestinal tract location (CMS/HCC) Tobacco user Tobacco use disorder Anxiety Anxiety state, unspecified Cervical pain (neck)- Primary Cervicalgia History of kidney cancer- Primary Personal history of malignant neoplasm of kidney Chronic obstructive pulmonary disease, unspecified (CMS/HCC) Pulmonary hypertension (CMS/HCC) Other chronic pulmonary heart diseases Encounter for subsequent annual wellness visit (AWV) in Medicare patient Chronic midline thoracic back pain Tobacco user Tobacco use disorder Crohn's disease without complication, unspecified gastrointestinal tract location (CMS/HCC) Chronic neck pain Cervicalgia COPD mixed type (CMS/HCC) Cervical pain (neck) Cervicalgia RLS (restless legs syndrome) Restless legs syndrome (RLS) Crohn's disease without complication, unspecified gastrointestinal tract location (CMS/HCC)- Primary Tobacco user Tobacco use disorder Pulmonary hypertension (CMS/HCC) Other chronic pulmonary heart diseases History of kidney cancer Personal history of malignant neoplasm of kidney Screening for prostate cancer Special screening for malignant neoplasm of prostate Needs flu shot Need for prophylactic vaccination and inoculation against influenza RLS (restless legs syndrome) Restless legs syndrome (RLS) documented [facility] Diagnosis Pulmonary hypertension (CMS/HCC)- Primary Other chronic pulmonary heart diseases Crohn's disease without complication, unspecified gastrointestinal tract location (CMS/HCC) Tobacco user Tobacco use disorder Anxiety Anxiety state, unspecified Cervical pain (neck)- Primary Cervicalgia History of kidney cancer- Primary Personal history of malignant neoplasm of kidney Chronic obstructive pulmonary disease, unspecified Pulmonary hypertension (CMS/HCC) Other chronic pulmonary heart diseases Encounter for subsequent annual wellness visit (AWV) in Medicare patient Chronic midline thoracic back pain Tobacco user Tobacco use disorder Crohn's disease without complication, unspecified gastrointestinal tract location (CMS/HCC) Chronic neck pain Cervicalgia COPD mixed type (CMS/HCC) Cervical pain (neck) Cervicalgia RLS (restless legs syndrome) Restless legs syndrome (RLS) Crohn's disease without complication, unspecified gastrointestinal tract location (CMS/HCC)- Primary Tobacco user Tobacco use disorder Pulmonary hypertension (CMS/HCC) Other chronic pulmonary heart diseases History of kidney cancer Personal history of malignant neoplasm of kidney Screening for prostate cancer Special screening for malignant neoplasm of prostate Needs flu shot Need for prophylactic vaccination and inoculation against influenza RLS (restless legs syndrome) Restless legs syndrome (RLS) Primary hypertension (CMS/HCC)- Primary Unspecified essential hypertension Crohn's disease without complication, unspecified gastrointestinal tract location (CMS/HCC) COPD mixed type (CMS/HCC) Pulmonary hypertension (CMS/HCC) Other chronic pulmonary heart diseases Tobacco dependence Tobacco use disorder Chronic midline thoracic back pain Arthralgia, unspecified joint Lung cancer screening declined by patient documented [facility] this [facility] Diagnosis Pulmonary hypertension (HCC)- Primary Other chronic pulmonary heart diseases Crohn's disease without complication, unspecified gastrointestinal tract location (HCC) Tobacco user Tobacco use disorder Anxiety Anxiety state, unspecified Cervical pain (neck)- Primary Cervicalgia History of kidney cancer- Primary Personal history of malignant neoplasm of kidney Chronic obstructive pulmonary disease, unspecified (HCC) Pulmonary hypertension (HCC) Other chronic pulmonary heart diseases Encounter for subsequent annual wellness visit (AWV) in Medicare patient Chronic midline thoracic back pain Tobacco user Tobacco use disorder Crohn's disease without complication, unspecified gastrointestinal tract location (HCC) Chronic neck pain Cervicalgia COPD mixed type (HCC) Cervical pain (neck) Cervicalgia RLS (restless legs syndrome) Restless legs syndrome (RLS) Crohn's disease without complication, unspecified gastrointestinal tract location (HCC)- Primary Tobacco user Tobacco use disorder Pulmonary hypertension (HCC) Other chronic pulmonary heart diseases History of kidney cancer Personal history of malignant neoplasm of kidney Screening for prostate cancer Special screening for malignant neoplasm of prostate Needs flu shot Need for prophylactic vaccination and inoculation against influenza RLS (restless legs syndrome) Restless legs syndrome (RLS) Primary hypertension- Primary Unspecified essential hypertension Crohn's disease without complication, unspecified gastrointestinal tract location (HCC) COPD mixed type (HCC) Pulmonary hypertension (HCC) Other chronic pulmonary heart diseases Tobacco dependence Tobacco use disorder Chronic midline thoracic back pain Arthralgia, unspecified joint Lung cancer screening declined by patient Primary hypertension- Primary Unspecified essential hypertension COPD mixed type (HCC) Tobacco dependence Tobacco use disorder Medical non-compliance Pulmonary hypertension (HCC) Other chronic pulmonary heart diseases RLS (restless legs syndrome) Restless legs syndrome (RLS) Cervical pain (neck) Cervicalgia documented in this encounter [facility] Assessments [...] section and content) DATE CREATED AUTHOR 09/12/2017 [facility] DATE CREATED AUTHOR AUTHOR'S ORGANIZ ATION 04/26/2024 [facility] DATE CREATED AUTHOR AUTHOR'S ORGANIZ ATION 09/17/2024 [facility] EPIC Care Teams (unrecognized sec tion and content) Facer Operator Relationship Specialty Start Date End Date Nicolas Trujillo MD [address] [place] [address] PCP - General Family Medicine 03/25/23 Facer Operator Relationship Specialty Start Date End Date Unallocated, Noms MD [facility] [place] [address] PCP - General Family Medicine 12/17/23 Leah Olson NP [address] [place] [phone] Nurse Practitioner Family Medicine 10/21/23 Facer Operator Relationship Specialty Start Date End Date Unallocated, Noms MD [facility] [address] [place] [address] PCP - General Family Medicine 12/17/23 Leah Olson NP [address] [place] [phone] Nurse Practitioner Family Medicine 10/21/23 Facer Operator Relationship Specialty Start Date End Date Nicolas Trujillo MD [address] [place] [phone] PCP - General Family Medicine 12/25/23 Leah Olson NP [address] [place] [phone] Nurse Practitioner Family Medicine 10/21/23 Facer Operator Relationship Specialty Start Date End Date Nicolas Trujillo MD [address] [place] [phone] PCP - General Family Medicine 12/25/23 Leah Olson NP [address] [place] [phone] Nurse Practitioner Family Medicine 10/21/23 Facer Operator Relationship Specialty Start Date End Date Nicolas Trujillo MD [address] [place] [phone] PCP - General Family Medicine 12/25/23 Leah Olson NP [address] [place] [phone] Nurse Practitioner Family Medicine 10/21/23 Facer Operator Relationship Specialty Start Date End Date Nicolas Trujillo MD [address] [place] [address] PCP - General Family Medicine 12/25/23 Leah Olson NP [address] [place] [phone] Nurse Practitioner Family Medicine 10/21/23 Reason for Visit (unrecogniz ed section and content) Reason Comments Hypertension FOR RECORDS PERTAINING TO PATIENTS WHO ARE [...] BE BASED ON THE PRIMARY CLINICAL RECORDS. [facility] [employer] [facility]. provides no warranty or guarantee of the accuracy or completeness of information in this document.
[2024-09-20 10:41] LABS: Hematocrit 45.7 % (42.0-54.0); Hemoglobin 15.0 g/dL (14.0-18.0); Immature Granulocytes Abs Auto 0.03 10^3/uL (0.00-0.03); Immature Granulocytes Pct Auto 0.5 % (0.0-0.5); Lymphocytes Absolute Auto 1.4 10^3/uL (1.2-3.8); Mean Corpuscular HGB Conc 32.8 g/dL (29.9-35.2); Mean Corpuscular Hemoglobin 30.1 pg (25.9-34.0); Mean Corpuscular Volume 91.8 fL (80.0-94.0); Platelet Count 171 10^3/uL (150-450); Red Blood Count 4.98 10^6/uL (4.70-6.10); White Blood Count 6.6 10^3/uL (4.0-11.0)
[2024-09-20 11:01] LABS: Alanine Aminotransferase 24 U/L (16-63); Albumin Globulin Ratio 0.8; Albumin Level 3.2 g/dL (3.4-5.0); Alkaline Phosphatase 93 U/L (46-116); Anion Gap 11.4; Aspartate Amino Transferase 20 U/L (15-37); Blood Urea Nitrogen 22.0 mg/dL (7.0-18.0); Calcium 8.7 mg/dL (8.5-10.1); Carbon Dioxide 29.7 mmol/L (21.0-32.0); Chloride 106 mmol/L (98-107); Estimated GFR (African America >60 (>=60 mL/min/1.73m^2); Estimated GFR (Non-African Ame >60 (>=60 mL/min/1.73m^2); Globulin 3.8 g/dL; Glucose 110 mg/dL (74-106); Potassium 4.1 mmol/L (3.5-5.1); Sodium 143 mmol/L (136-145); Total Protein 7.0 g/dL (6.4-8.2); Uric Acid 5.2 mg/dL (3.5-7.2)
[2024-09-20 11:17] LABS: Glucose Urine UA NEGATIVE (NEGATIVE)
[2024-09-20 11:42] LABS: Cast Seen? NONE SEEN #/LPF (NONE SEEN); Crystals Seen? None Seen #/HPF (None Seen); Urine Culture Indicated NO
[2024-09-21 11:08] LABS: Antinuclear Antibodies, IFA Negative (.)
== END 2024-09-20 09:59 | disposition home or self-care (01) ==
LOC: LAB 10:02
PROVIDERS: PCP Nurse Practitioner; Visit Provider Nurse Practitioner
DX: M51.34 Other intervertebral disc degeneration, thoracic region (principal); M25.50 Pain in unspecified joint; Z12.5 Encounter for screening for malignant neoplasm of prostate; Z72.0 Tobacco use; Z85.528 Personal history of other malignant neoplasm of kidney; I27.20 Pulmonary hypertension, unspecified; G89.29 Other chronic pain; M85.88 Other specified disorders of bone density and structure, other site
CPT/HCPCS: 36415; 72072; 80053; 81001; 84550; 85025; 86038; 86431; G0103

== ENCOUNTER 2024-10-12 09:01 | Outpatient (RCR) | payer OTHER, SELFPAY | END 2024-11-10 11:36 | disposition home or self-care (01) | LOC: PT 09:01 | PROVIDERS: PCP Nurse Practitioner; Visit Provider Nurse Practitioner | DX: M54.6 Pain in thoracic spine (principal); G89.29 Other chronic pain | CPT/HCPCS: 97110; 97140; 97162 ==

== ENCOUNTER 2024-12-27 15:17 | Outpatient (OUT) | payer OTHER, SELFPAY ==
--- OUTSIDE RECORDS SUMMARY | 2018-09-04 05:00 | XMS_ITS | Continuity of Care Document ---
Author Organization [facility] Address [address] [place] [address] Phone Care Team Providers Care Technical Support Associate Name Role Phone Ranjana Koroma Unavailable Unavailabl e Allergies, Adverse Reactions, Alerts Substance Reaction Status Criticality No Known Allergies Active No Inform ation Medications Medication Instructions Dosage Effective Dates (start - stop) Status Comments diclofenac sodium 75 mg tablet,delayed release take 1 tablet by oral route 2 times every day 75 MG - Active Procedures Procedure Date OFFICE/OUTPATIENT VISIT, EST Panoramic Film Comp Oral Eval New/estab Patient 2018 [employer] Couns For Control Of Adel Dis Aug Oral Hygiene Instruction Advance Directives Directive Yes / No Effective Date File Name No Information Encounters Encounter Description Practice Location Reason(s) For Visit Diagnoses Date Provider Providers Copied on Encounter OFFICE/OUTPAT IENT VISIT, EST [facility], [address] [place] [address], [place], [id number], [place] tel:[phone] [facility] EST CARE (chief complaint) Body mass index (BMI) 19.9 or less, adultEstablishing care with new doctor, encounter forChronic low back pain without sciatica, unspecified back pain lateralityOther chronic painNeck painCancer of right kidneyCrohn's disease with complication, unspecified gastrointestinal tract location [address] [place], [place], [id number] , [place]. [phone] [facility], [address] [facility], [place], [place], [id number], [place] tel:[phone] Dental Clinic Dental New (chief complaint) Encounter for screening for dental disorders 9 Tiffanie Watson. [address] [facility], [place], [place], [id number] , [place]. [phone] Family History Family Member Type Diagnosis Age At Onset Brother Problem (finding) alcoholism Father Problem (finding) Father Problem (finding) Cancer, unknown Mother Problem (finding) malignant neop lasm of breast in first degree relative Mother Problem (finding) Payers Payer name Insurance type Covered democrat ID Authoriza tion(s) No Information Social History Type Description Quantity Date Captured Comments Alcohol Use Details No Caffeine Use Details coffee 2 cups per day Tobacco Use Status Occasional cigarette smoker Smoking Status Heavy tobacco smoker Smoking Tobacco Use Details Cigarette: No Details Available Cigarette: 1 Packs per day [id number] SexMaleSexual OrientationStraight or heterosexualGender [id number] Vital Signs Date / Time: Height Weight BMI Pulse Rate Blood Pressure Temperature Respiratory Rate Body Surface Area Head Circumference Head Circ. Percentile Wt./Ben. Percentile BMI percentile Pulse Ox Inhaled Ox 10:16 AM 69.00 in 58.695 kg (129.40 lbs) 19.1 1 kg/m eter (2) 74 /min 108/71 mm[Hg] 97 % Chief Complaint And Reason For Visit From encounter dated '09/04/2018 10:00'. EST CARE (chief complaint). Description: Pt here today to establish care. Pt states he has not beento a doctor in about 5 years now. 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 Pt has a port in his R chest he said he wants plugged and taken out. I told him we most likely would not do that here and would refer him to get that done. Pt states he has arthritis in his back and sometimes has flare ups with Crohn's. Managing them are his biggest concerns today. Pt hasno other issues or concerns. TGrodi LPNNoted above. Patient reports he has had the chest port for about 8 years, has not been flushed in many years. Was placed related to treatment for Crohn's. he mentions long-standing back pain and arthritis. Mentions from his neck to lower back his x-ray was white . Was on a mild percocet for the pain a few years ago and that helped. Was also on an anti-inflammatory. He has not seen a provider in over 5 years, no labs in that time. He reports he used to weight about 195#, but now seems to maintain at current weight. Mentions having part of right kidney removed for cancer . Would like something for his pain today. JHackerNP Reason For Referral Reason For Referral No Information Plan Of Treatment Date Type Action Status Goal Tobacco cessation counseling completed Goal Dietary manageme nt education, guidance, and counseling completed Future Order: Lab Order CBC With Differential/Platelet ([id number]), Ordered on: Ordered Future Order: Lab Order Comp. Me tabolic Panel (14) ([id number]), Ordered on: Ordered Future Order: Lab Order Hemoglob in A1c ([id number]), Ordered on: Ordered Future Order: Lab Order Lipid Pa crispin With LDL/HDL Ratio ([id number]), Ordered on: Ordered Future Order: Lab Order PSA Tota l+% Free ([id number]), Ordered on: Ordered Future Order: Lab Order TSH+Free T4 ([id number]), Ordered on: Ordered Future Order: Lab Order Urine Cu lture, Routine ([id number]), Ordered on: Ordered History Of Present Illness Encounter Date Complaint History Of Prese nt Illness EST CARE Pt here today to establish care. Pt states he has not been to a doctor in about 5 years now. 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 Pt has a port in his R chest he said he wants plugged and taken out. I told him we most likely would not do that here and would refer him to get that done. Pt states he has arthritis in his back and sometimes has flare ups with Crohn's. Managing them are his biggest concerns today. Pt has no other issues or concerns. TGzafar LPNNoted above. Patient reports he has had the chest port for about 8 years, has not been flushed in many years. Was placed related to treatment for Crohn's. he mentions long-standing back pain and arthritis. Mentions from his neck to lower back his x-ray was white . Was on "a mild percocet for the pain a few years ago and that helped. Was also on an anti-inflammatory. He has not seen a provider in over 5 years, no labs in that time. He reports he used to weight about 195#, but now seems to maintain at current weight. Mentions having part of right kidney removed for cancer . Would like something for his pain today. JHackerNP Dental New Dental New Functional Status Date Functional Assessmen t No Information Instructions Date Instruction Additional Infor mation Giving encouragement to exercise Related to Body mass index (BMI) 19.9 or less, adult Dietary management e ducation, guidance, and counseling Related to Body mass index (BMI) 19.9 or less, adult Assessments Type Assessment Date assessment Body mass index (BMI) 19.9 or le ss, adult assessment Establishing care with new skyler r, encounter for assessment Chronic low back uli n without sciatica, unspecified back pain laterality assessment Other chronic pain assessment Neck pain assessment Cancer of right kidney 19 assessment Crohn's disease with complication, unspecified gastrointestinal tract location impression Here to establish ca reHas not seen a provider in over 5 yearsAsking for something to help with back pain and arthritis pain Was on mild percocet in the past Will order fasting labs, review in detail at f/u apptDiscussed with patient no controlled pain medication prescribed from this office, he states nothing otc works for him. Will order diclofenac for 1 month, but need to review lab results and consider co-morbidities before prescribing long termRTC in 1m or sooner with concernsPatient verbalizes understanding and agrees with treatment plan. impression Ongoing for a long time States the back pain impacts is every day life. Reports being on disability, but does not qualify for insuranceDiscussed heat, ice, stretchesWill trial diclofenac for 1m, explained that we refer to PM any patient with chronic painPatient with no insurance, and no interest for that referral at this time. RTC in 1m or sooner with concernsPatient verbalizes understanding and agrees with treatment plan. impression Patient reports righ t kidney cancer with part of it removed years ago impression Ongoing, diagnosed a bout 19 years agoHas right chest port, has not been accessed in a whileHe is interested in having it removed. Explained that would be a surgical procedure done by surgeonOffered to refer at this time, he was not interested. He asked if it was okay to just keep it there Educated that with no redness, pain, or swelling noted to port area, can stay in place of long period of time. Instructed patient to not try and access or insert anything in to port unless done by a medical professionalRTC with concernsPatient verbalizes understanding and agrees with treatment plan. Mental Status Date Cognitive Assessment Orientation - Tiv[place] ed to time, place, person, situation. Patient Care Teams Name Effective Dates (start - stop) Status Members No Information
--- OUTSIDE RECORDS SUMMARY | 2024-12-16 08:49 | XMS_ITS | Continuity of Care Document ---
Author Organization [facility] Address [address] [place] [address] Phone Care Team Providers Care Medical Anthropology Director Name Role Phone Leah Olson Primary Care Provider Leah Olson Attending Provider Care Teams Patient Care Team Team Status: Active Member Role/Relationship Status Dates CJ Streeter Primary Care Provider Active Patient Care Team Team Status: Inactive Member Role/Relationship Status Dates Leah Olson NP-Pedro Primary Care Provider Active Start: December 16, 2024 End: December 16, 2024Leah Olson NP-CAttending ProviderActiveStart: December 16, 2024 End: December 16, 2024 Chief Complaint and Reason for Visit Chief Complaint Admit Date 3M December 16, 2024 1 :31pm Reason for Visit Admit Date COPD mixed type December 16, 2024 1 :31pm Crohn disease December 16, 2024 1 :31pm Elevated PSA December 16, 2024 1 :31pm Essential hypertension December 16 1:31pm SAIGE (generalized anxiety disorder) Octob er 2024 1:31pm Nicotine dependence, uncomplicated Octob er 2024 1:31pm Pulmonary hypertension December 16 1:31pm Allergies, Adverse Reactions, Alerts Allergen Type Severity Reaction Last Updated Verified Status No Known Allergies Allergy Unknown November 20, 2024 1:35pmYesActive Social History Smoking Status Unknown if ever smoked Observation Status Observation Response Date of Response Legal Sex Male (finding) Sex Assigned At BirthMaleSeptember 1955 Problems Active Problems Problem Diagnosis/Recorded Date Onset Date Stat Chronic thoracic back pain November 20, 2024 1:36pm Unknown Active Elevated PSA November 20, 2024 1:36pm Unknown Active Lung cancer screening declin ed by patient November 20, 2024 1:37pm Unknown Active Encounter for subsequent [facility] wellness visit (AWV) in Medicare patient November 20, 2024 1:36pm Unknown Active Insomnia November 20, 2024 1:37pm Unknown Active SAIGE (generalized anxiety disorder) November 20 1:35pm Unknown Active Screening for prostate cancer November 20, 2024 1:3 8pm Unknown Active Nicotine dependence, uncomplicated November 20 1:39pm Unknown Active Arthralgia November 20, 2024 1:35pm Unknown Active COPD mixed type November 20, 2024 1:36pm Unknown Active Medical non-compliance November 20, 2024 1:37pm Unk nown Active Testosterone deficiency November 20, 2024 1:38pm Un known Active Pulmonary hypertension November 20, 2024 1:38pm Unk nown Active Crohn disease November 20, 2024 1:36pm Unknown Active History of kidney cancer November 20, 2024 1:37pm U nknown Active RLS (restless legs syndrome) November 20, 2024 1:38 pm Unknown Active Essential hypertension November 20, 2024 1:38pm Unk nown Active Family history of coronary a rtery disease November 20, 2024 1:37pm Unknown Active Chronic neck pain November 20, 2024 1:36pm Unknown Active Medications Medication Status Dose Units Route Directions Qty Days Refills S tart Date Stop Date End Date Reason(s) Instructions Adherence Tizanidine 4 mg tablet Active 4 MG PO Daily at bedtime as needed for muscle spasticity November 20, 2024 12:00amUnknownAspirin 81 mg tablet,delayed release (DR/EC) Dxrkgw42PQALXuevoTmneeizcj 27th, 2025 12:00amUnknownCarvedilol 3.125 mg tablet Active3.125MGPOTwice dailySept2024 12:00ammust administer with a meal/foodUnknownRopinirole 0.5 mg tabletActive0.5MGPODaily at bedtimeS2024 12:00amUnknownHydrochlorothiazide 25 mg xryqthNnvqeg89LZYUPqskg November 20, 2024 12:00amUnknownAlbuterol Sulfate 90 mcg/actuation HFA aerosol inhalerActiveINHALATIONSeptaurora [facility] hospital 2024 12:00amUnknown Vital Signs Vital Reading Result Reference Range Collection Date/Time Height 68 [in_i] December 16, 2024 1:94txEqeqag33.72 [facility] 1:33pmBody Temperature 98 [degF]97.6-99.0[facility] 2024 1:33pmHeart Rate81 /bqw14-751Bwhxpng 2024 1:33pmRespiratory rate18 /cbf83-06Gvfhwpt 2024 1:33pmOxygen saturation by Pulse adbtymzf46 %95-100[facility] 2024 1:33pmBP Wafzowec958 mm[Hg]100-140[facility] 2024 1:33pmBP Ddmhrxmwb04 mm[Hg]60-100[facility] 2024 1:33pmBMI (Body Mass Index)24.0 kg/l7Nstaqry 2024 1:33pm Advance Directives Advance Directive Response Recorded Date/ Time Advance Directives No October 4:24pm Insurance Providers Guarantor Rodrigo Vasquez Address [address] [place] [id number] Info.Home Phone: Coverage Status Update:2024 Payer Group Member ID Coverage Type Subscriber Relationship to Subscriber Effective Date Expiration Date Regular Insurance [address] [facility] [address] Work Phone: [phone] Olynn , P Id: [id number] [place] [id number] Home Phone: Self Encounters Encounter Location(s) Arrival/Admit Date Discharge/Departure Date Discharge/Departure Disposition Provider(s) Departed Physician/ Provider Office Visit -[facility] Family Medicine Kip December 16, 2024 1:31pm December 16, 2024 1:49pm Discharged to home care or self care (routine discharge) JARAD StreeterC Recent Diagnosis Onset Date Admit Date COPD mixed type Unknown December 16 1:31pm Crohn disease Unknown December 16 1:31pm Elevated PSA Unknown December 16 1:31pm Essential hypertension Unknown November 252024 1:31pm SAIGE (generalized anxiety disorder) Unknown December 16, 2024 1:31pm Nicotine dependence, uncomplicated Unknown December 16, 2024 1:31pm Pulmonary hypertension Unknown November 252024 1:31pm Assessments Diagnosis Onset Date Resolution Status Admit Date COPD mixed type acuteOctober 2024 1:31pmCrohn diseaseacuteOctober 2024 1:31pm Elevated PSAacuteOctober 2024 1:31pmEssential hypertensionacuteOctober 2024 1:31pmGAD (generalized anxiety disorder)acuteOctober 2024 1:31pmNicotine dependence, uncomplicatedacuteOctober 2024 1:31pmPulmonary hypertensionacuteOctober 2024 1:31pm Plan of Treatment Author Leah Olson [facility] 2024 7:07amPlease check blood pressure daily and record DASH diet Limit caffeine Take medication as directed Contact office if chest pain, pressures, dizziness, shortness of breath, swelling in the legs Recommend slow position changes if you develop dizziness with position changes current meds: carvediolol, HCTZ, does not take medications for this condition noted on ECHO in 2022 right sided pressures 59, was sent to [facility] cardiology, they recommended heart cath as well as HCTZ, declined cath, and was not reportedly taking meds as directed. in 02/2024, he did have FU w cardiology. his most recent echo was 10/21/23 with EF 50-55%, and normal right sided pressures albuterol prn PFT's: 08/19/23: FEV1/FVC 69%, FEV1 79%, and FVC 86% does not follow with GI, and no current medications The patient has been advised of the risks of continued smoking: stroke, [place], all forms of cancer, lung disease, and . Options for quitting: cold turkey, hypnosis, acupuncture, nicotine replacement meds (gum, lozenges, and patches), as well as oral meds: buproprion or varenicline . At this time pt is encouraged to evaluate their goals for wanting to quit smoking, and reach out to provider when ready to start this process Future Tests Future scheduled test information is unavailable Pending Tests Pending diagnostic test information is unavailable Future Visits Future appointment information is unavailable Future Procedures Procedure Name Ordered Date Scheduled Date PSA Diagnostic (Total & Free) December 16, 2024 7:07am Future Medications Future medication information is unavailable Patient Instructions Patient instructions are unavailable
--- OUTSIDE RECORDS SUMMARY | 2024-12-27 15:29 | XMS_ITS | Encounter Summary ---
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 Name Role Phone Nicolas Trujillo MD Primary Care Provider [phone] Leah Olson NP Unavailable [phone] Unallocated, [facility] Provider Primary Care Provi darlene Nicolas Trujillo MD Primary Care Provider [phone] Leah Olson NP Unavailable [phone] Encounter Details DateTypeDepartmentCare Team (Latest Contact Info)Npvkozmuilj76/27/2024Clinisync Result Encounter [facility] External Department Unsolicited Provider, Generic External Data Social History Tobacco UseTypesPacks/DayYears UsedDateSmoking Tobacco: Every DayCigarettes Passive Smoke Exposure: CurrentAlcohol UseStandard Drinks/WeekCommentsNever0 (1 standard drink = 0.6 oz pure alcohol)PHQ-2AnswerDate RecordedPatient Health Questionnaire-2 Rngao153Sex and Gender InformationValueDate RecordedSex Assigned at BirthNot on fileLegal HqlGbex8005/08/2022 6:46 PM EDTGender Identity Not on fileSexual OrientationNot on filedocumented as of this encounter Functional Status * Over the past 2 weeks, how often have you been bothered by any of the following problems?QuestionAnswerDate of AssessmentAuthorLittle interest or pleasure in doing thingsNot at all09/20/2024 4:42 PM Yudy Umana MA Feeling down, depressed, or hopelessNot at all09/20/2024 4:42 PM EDTHumbarger, Yudy, MAPatient Health Questionnaire-2 Pkesa780 4:42 PM EDT Yudy Marie MA * QuestionAnswerDate of AssessmentAuthorTrouble falling or staying asleep, or sleeping too muchNot at all09/20/2024 4:42 PM Yudy Umana MAFeeling tired or having little energyNot at all09/20/2024 4:42 PM Yudy Umana MAPoor appetite or overeatingNot at all09/20/2024 4:42 PM EDT Yudy Marie, LAMONTEeeling bad about yourself - or that you are a failure or have let yourself or your family downNot at all09/20/2024 4:42 PM EDT Yudy Marie MATrouble concentrating on things, such as reading the newspaper or watching televisionNot at all09/20/2024 4:42 PM Yudy Umana, MAMoving or speaking so slowly that other people could have noticed? Or the opposite - being so fidgety or restless that you have been moving around a lot more than usual.Several days09/20/2024 4:42 PM Yudy Umana MAThoughts that you would be better off or hurting yourself in some wayNot at all09/20/2024 4:42 PM Yudy Umana MAPatient Health Questionnaire-9 Myefg716 4:42 PM Yudy Umana MA documented as of this encounter Plan of Treatment Not on file documented as of this encounter Procedures Procedure NamePriorityDate/TimeAssociated DiagnosisCommentsCA ECHO DOPPLER GFADXOHM21/27/2024 7:58 PM EDT documented in this encounter Results * CA ECHO DOPPLER COMPLETE (10/21/2023 7:58 PM EDT)Anatomical RegionLaterality ModalityOtherSpecimen (Source)Anatomical Location / LateralityCollection Method / VolumeCollection TimeReceived Time10/21/2023 7:58 PM EDT Narrative 10/21/2023 7:59 PM EDT [facility] ?[address] ? [place] [address] ? Cardiology Report ? Signed ? Patient: OLYNN,MIR P ?MR#: [id number] ?? : 1955 ?Acct:[id number] ?? Age/Sex: 67 / M ?ADM Date: 08/27/24 ?? Loc: CARD ? Attending Dr: EDNA RASCON ? Ordering Physician: EDNA RASCON ?? Date of Service: 10/21/23 ?? Procedure(s): CA echo doppler complete ?? Accession Number(s): [id number] ? cc: EDNA RASCON; Leah Olson SUPERVISOR PRINTING AND STAMPING ? Patient Name: ? MIR OLYNN ? MR#: [id number] ? : 1955 ? Exam Date: 10/21/2023 ?? Ordering Doctor: EDNA RASCON M.D. ? ECHOCARDIOGRAM REPORT ? PROCEDURE: ? CA ECHO DOPPLER COMPLETE ? INDICATIONS: ? Pulmonary hypertension, emphysema ? COMPARISON: ? None. ? DESCRIPTION: ? COMPLETE ECHOCARDIOGRAM Real-time transthoracic ?? echocardiography with 2D, M-mode, spectral and color flow Doppler performed. ? QUALITY: ? Technical quality was good. ? LEFT VENTRICLE: ? Normal chamber size. Normal left ventricular wall ?? thickness. ??Systolic function is at the lower limits of normal. ?? LV EF: ? Low normal left ventricular ejection fraction, (50-55%). ?? DIASTOLIC: ? Normal diastolic function. ?? ATRIAL SEPTUM: ? Visually appears intact. ?? LEFT ATRIUM: ? Normal chamber size. ?? RIGHT ATRIUM: ? Normal chamber size. ?? RIGHT VENTRICLE: ? Normal chamber size. Normal right ventricular systolic ?? function. ? TRICUSPID VALVE: ? Normal mobility and thickness. No stenosis with trivial ?? regurgitation. No evidence of pulmonary hypertension. RVSP 33 mmHg ? MITRAL VALVE: ? Normal mobility and thickness. ?? No evidence of mitral valve ?? stenosis. ??There is no mitral annular calcification. Trivial mitral ?? regurgitation. ? AORTIC VALVE: ? Normal trileaflet appearance. No visible sclerosis. ??Normal ?? leaflet mobility. ??No evidence of aortic valve stenosis. No aortic ?? regurgitation. ? AORTIC ROOT: ? Normal diameter and appearance. ? PULMONIC VALVE: ? Normal thickness and mobility. No stenosis. No ?? regurgitation. ? PERICARDIUM: ? No evidence of pericardial effusion. ? IVC: ? Collapses with inspirations. Normal in size. ? PLEURA: ? CONCLUSION: ? 1. The left ventricular is normal in size and exhibits low normal systolic ?? function. ??LVEF is estimated at 50 to 55%. ?? 2. Normal right ventricular size and systolic function. ?? 3. Normal diastolic function. ?? 4. No significant valvular dysfunction. ?? 5. Normal right-sided pressures. ? Adult Echocardiography Procedure Report ?? Left Ventricle ?? LVEDD (3.7 - 5.6 cm): ? 4.27 cm ?? LVESD (2.2 - 4.0 cm): ? 3.04 cm ?? LVIVS thickness (0.6 - 1.2 cm): ? 0.85 cm ?? LVPW thickness (0.5 - 1.0 cm): ? 0.82 cm ?? e': ? 0.08 m/s ?? E - e': ? 5.13 ?? LVOT Max Gradient: ? 1.55 mm[Hg] ?? LVOT Area (cm2): ? 0.62 m/s ?? Peak Velocity (LVOT): ? 0.62 m/s ?? Mean Velocity (LVOT): ? 0.39 m/s ?? LVOT Diameter ? 2.21 cm ?? Left Atrium ?? LA Volume Index (2D A2C): ? 24.93 ml/m2 ?? Left Atrium Systolic Dimension: ? 1.99 cm ?? Mitral Valve ?? MV E to A Ratio: ? 0.90 ?? Mitral Valve A-Wave Peak Velocity: ? 0.48 m/s ?? Mitral Valve E-Wave Peak Velocity: ? 0.43 m/s ?? Right Ventricle ?? Aorta ?? AO Root Diam: ? 3.13 cm ?? Ascending Ao Diam: ? 2.62 cm ?? Aortic Valve ?? AoV Area (Peak Dillon): ? 2.94 cm2, 2.94 cm2 ?? AoV Area (VTI): ? 2.51 cm2, 2.51 cm2 ?? Peak Velocity(Antegrade Flow): ? 0.81 m/s ?? Peak Gradient(Antegrade Flow): ? 2.64 mm[Hg] ?? Mean Velocity(Antegrade Flow): ? 0.53 m/s ?? Mean Gradient(Antegrade Flow): ? 1.31 mm[Hg] ?? Velocity Time Integral: ? 17.83 cm ?? Tricuspid Valve ?? Peak Velocity (Regurgitant Flow): ? 2.73 m/s ?? Pulmonic Valve ?? Peak Velocity: ? 0.90 m/s ?? Peak Gradient: ? 3.22 mm[Hg] ?? Right Atrium ? Dictated by: Charli Chamorro M.D. on 10/21/2023 at 19:54 ? Approved by: Charli Chamorro M.D. on 10/21/2023 at 19:57 ? Dictated By: ?CHARLI CHAMORRO ? Signed By: ?10/21/231958 ? DD/ 57 ? TD/TT: ? Payroll And Benefits Analyst: Procedure Note Radiology, Radiologist, MD - 10/21/2023 [place] [address] Cardiology Report Signed Patient: MIR BECKER PMR#: [id number] : 7Acct:[id number] Age/Sex: 67 / MADM Date: 10/21/23 Loc: CARD Attending Dr: EDNA RASCON Ordering Physician: EDNA RASCON Date of Service: 10/21/23 Procedure(s): CA echo doppler complete Accession Number(s): [id number] cc: EDNA RASCON; Leah Olson NP Patient Name: MIR BECKER MR#: [id number] : 1955 Exam Date: 10/21/2023 Ordering Doctor: EDNA RASCON M.D. ECHOCARDIOGRAM REPORT PROCEDURE: CA ECHO DOPPLER COMPLETE INDICATIONS: Pulmonary hypertension, emphysema COMPARISON: None. DESCRIPTION: COMPLETE ECHOCARDIOGRAM Real-time transthoracic echocardiography with 2D, M-mode, spectral and color flow Dopplerperformed. QUALITY: Technical quality was good. LEFT VENTRICLE: Normal chamber size. Normal left ventricular wall thickness. Systolic function is at the lower limits of normal. LV EF: Low normal left ventricular ejection fraction, (50-55%). DIASTOLIC: Normal diastolic function. ATRIAL SEPTUM: Visually appears intact. LEFT ATRIUM: Normal chamber size. RIGHT ATRIUM: Normal chamber size. RIGHT VENTRICLE: Normal chamber size. Normal right ventricularsystolic function. TRICUSPID VALVE: Normal mobility and thickness. No stenosis withtrivial regurgitation. No evidence of pulmonary hypertension. RVSP 33 mmHg MITRAL VALVE: Normal mobility and thickness. No evidence of mitralvalve stenosis. There is no mitral annular calcification. Trivial mitral regurgitation. AORTIC VALVE: Normal trileaflet appearance. No visible sclerosis.Normal leaflet mobility. No evidence of aortic valve stenosis. No aortic regurgitation. AORTIC ROOT: Normal diameter and appearance. PULMONIC VALVE: Normal thickness and mobility. No stenosis. No regurgitation. PERICARDIUM: No evidence of pericardial effusion. IVC: Collapses with inspirations. Normal in size. PLEURA: CONCLUSION: 1. The left ventricular is normal in size and exhibits low normal systolic function. LVEF is estimated at 50 to 55%. 2. Normal right ventricular size and systolic function. 3. Normal diastolic function. 4. No significant valvular dysfunction. 5. Normal right-sided pressures. Adult Echocardiography Procedure Report Left Ventricle LVEDD (3.7 - 5.6 cm): 4.27 cm LVESD (2.2 - 4.0 cm): 3.04 cm LVIVS thickness (0.6 - 1.2 cm): 0.85 cm LVPW thickness (0.5 - 1.0 cm): 0.82 cm e': 0.08 m/s E - e': 5.13 LVOT Max Gradient: 1.55 mm[Hg] LVOT Area (cm2): 0.62 m/s Peak Velocity (LVOT): 0.62 m/s Mean Velocity (LVOT): 0.39 m/s LVOT Diameter 2.21 cm Left Atrium LA Volume Index (2D A2C): 24.93 ml/m2 Left Atrium Systolic Dimension: 1.99 cm Mitral Valve MV E to A Ratio: 0.90 Mitral Valve A-Wave Peak Velocity: 0.48 m/s Mitral Valve E-Wave Peak Velocity: 0.43 m/s Right Ventricle Aorta AO Root Diam: 3.13 cm Ascending Ao Diam: 2.62 cm Aortic Valve AoV Area (Peak Dillon): 2.94 cm2, 2.94 cm2 AoV Area (VTI): 2.51 cm2, 2.51 cm2 Peak Velocity(Antegrade Flow): 0.81 m/s Peak Gradient(Antegrade Flow): 2.64 mm[Hg] Mean Velocity(Antegrade Flow): 0.53 m/s Mean Gradient(Antegrade Flow): 1.31 mm[Hg] Velocity Time Integral: 17.83 cm Tricuspid Valve Peak Velocity (Regurgitant Flow): 2.73 m/s Pulmonic Valve Peak Velocity: 0.90 m/s Peak Gradient: 3.22 mm[Hg] Right Atrium Dictated by: Charli Chamorro M.D. on 10/21/2023 at 19:54 Approved by: Charli Chamorro M.D. on 10/21/2023 at 19:57 Dictated By: CHARLI CHAMORRO Signed By:10/21/231958 DD/ 57 TD/TT: Payroll And Benefits Analyst: Authorizing ProviderResult TypeResult StatusGeneric External Data Provider CLINISYNC IMAGINGFinal Result documented in this encounter Visit Diagnoses Not on filedocumented in this encounter Additional Health Concerns AssessmentNoted TimePHQ-9 Depression Total Score: 5009/16/2023 2:00 PM EDT documented as of this encounter Care Teams Team MemberRelationshipSpecialtyStart DateEnd Date Nicolas Trujillo MD PCP - GeneralFamily Medicine03/25 Unallocated, [facility] MD Rich [address] [place] [address] PCP - GeneralFamily Vossomjd16/23/ Nicolas Trujillo MD PCP - GeneralFamily Zgqwvqmp96/31/24 Leah Olson NP [address] [place] [address] PCP - [facility]//04/20 Leah Olson NP Nurse PractitionerFamily Medicine10/21/23documented as of this encounter
--- OUTSIDE RECORDS SUMMARY | 2024-12-27 15:29 | XMS_ITS | Clinical Summary ---
Author Organization [facility] Address [address] [place] [address] Care Team Providers Care It Software Developer Name Role Phone Leah Olson NP Unavailable [phone] Nicolas Trujillo MD Primary Care Provider [phone] Allergies No known active allergies Medications MedicationSigDispense QuantityRefillsLast FilledStart DateEnd DateStatus albuterol HFA 90 mcg/act inhaler Indications:COPD mixed type (HCC)Inhale 2 puffs every 6 (six) hours if needed for wheezing or shortness of breath 18 g 5Active carvedilol (Coreg) 3.125 MG tablet Indications:Primary hypertensionTake 1 tablet (3.125 mg) by mouth in the morning and 1 tablet (3.125 mg) in the evening. Take with meals. 180 tablet 5Active hydroCHLOROthiazide (HYDRODiuril) 25 MG tablet Indications:Pulmonary hypertension (HCC)Take 1 tablet (25 mg) by mouth Daily 90 tablet 5Active rOPINIRole (Requip) 0.5 MG tablet Indications:RLS (restless legs syndrome)Take 1 tablet (0.5 mg) by mouth at bedtime 90 tablet 5Active tiZANidine (Zanaflex) 4 MG tablet Indications:Cervical pain (neck)Take 1 tablet (4 mg) by mouth as needed at bedtime for muscle spasms May cause drowsiness 30 tablet 5Active aspirin 81 MG EC tablet Indications:Primary hypertensionTake 1 tablet (81 mg) by mouth in the morning. Take 81 mg by mouth in the morning. 90 tablet Expired Active Problems ProblemNoted DateDiagnosed DateElevated PSA09/20/2024Medical non-compliance 09/15/2024 Assessment & Plan (09/15/2024 3:12 PM EDT): Labs ordered in 12/17 as well as additional labs in 06/18 to date still not completed I did discuss the rationale for ordering and w exception of PSA testing no cancer He verbalizes understanding and will complete this Tobacco jepbpenydp14/23/2025 Assessment & Plan (09/20/2024 7:32 AM EDT): The patient has been advised of the risks of continued smoking: stroke, MN, all forms of cancer, lung disease, and . Options for quitting smoking include: cold turkey, hypnosis, acupuncture, nicotine replacement meds(gum, lozenges, and patches), Buproprion, and Varenicline. At this time pt is encouraged to evaluate their goals for wanting to quit smoking, and reach out toprovider when ready to start this process Assessment & Plan (09/15/2024 6:47 AM EDT): The patient has been advised of the risks of continued smoking: stroke, MN, all forms of cancer, lung disease, and . Options for quitting smoking include: cold turkey, hypnosis, acupuncture, nicotine replacement meds(gum, lozenges, and patches), Buproprion, and Varenicline. At this time pt is encouraged to evaluate their goals for wanting to quit smoking, and reach out toprovider when ready to start this process Assessment & Plan (06/16/2024 6:52 AM EDT): The patient has been advised of the risks of continued smoking: stroke, MN, all forms of cancer, lung disease, and . Options for quitting smoking include: cold turkey, hypnosis, acupuncture, nicotine replacement meds(gum, lozenges, and patches), Buproprion, and Varenicline. At this time pt is encouraged to evaluate their goals for wanting to quit smoking, and reach out toprovider when ready to start this process Primary uazokrlclfok93/23/2025 Assessment & Plan (09/15/2024 6:47 AM EDT): Please check blood pressure daily and record DASH diet Limit caffeine Take medication as directed Contact office if chest pain, pressure, dizziness, shortness of breath, swelling legs Recommend slow position changes Current meds: hydrochlorothiazide, carvediolol Assessment & Plan (06/16/2024 1:25 PM EDT): Please check blood pressure daily and record DASH diet Limit caffeine Take medication as directed Contact office if chest pain, pressure, dizziness, shortness of breath, swelling legs Recommend slow position changes Current meds: hydrochlorothiazide, carvediolol Ybyqobrpgm01/23/2025Lung cancer screening declined by qdxyofq2106/16/2024 Assessment & Plan (06/16/2024 1:30 PM EDT): Declines being tested Screening for prostate ofdpqs4512/17/2023Needs flu shot12/17/2023History of kidney cuxduo8909/16/2023 Overview (09/16/2023): Partial nephrectomy, 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 I have recommended eating a balanced diet,as well as activity as chronic conditions allow It is recommended that the patient have a yearly eye exam, as well as twice a year dental exams Fu in this office for wellness on a yearly basis Assessment & Plan (09/16/2023 3:27 PM EDT): I have reviewed Ht/Wt/BMI, I have reviewed recommended vaccines for patient's age, as well as all recommended screenings I have reviewed available care everywhere notes as well. I have recommended eating a balanced diet,as well as activity as chronic conditions allow It is recommended that the patient have a yearly eye exam, as well as twice a year dental exams Fu in this office for wellness on a yearly basis Hand out on living will and HCPOA given COPD mixed type07/17/2023 Overview (09/02/2023): PFTs 08/2023: FVC 86, FEV1 79, FEV1/FVC 69 Assessment & Plan (09/15/2024 6:47 AM EDT): Albuterol prn PFT's from 09/16: FVC 86%, FEV1 79%, and FEV1/FVC 69% Assessment & Plan (06/16/2024 6:55 AM EDT): Albuterol prn PFT's from 09/16: FVC 86%, FEV1 79%, and FEV1/FVC 69% Chronic neck pain4Chronic midline thoracic back pain07/17/2023 Assessment & Plan (09/20/2024 5:57 PM EDT): Order PT Assessment & Plan (09/16/2023 3:28 PM EDT): Refer to pain mgmt Cervical pain (neck)05/14/2023 Assessment & Plan (05/14/2023 2:18 PM EDT): Present for years, getting worse No NT or weakness Offered Xray of neck and PT pt declines d/t medical debt, Will trial a muscle relaxer Fu in 4 weeks Consider Pain Mgmt if needed at fu appt Hand out on printed exercises given RLS (restless legs syndrome)04/01/2023 Assessment & Plan (12/17/2023 2:22 PM EDT): Continue current meds Testosterone ohkawugici40/06/2024Crohn's sknwqkr8704/01/2023 Assessment & Plan (06/16/2024 6:52 AM EDT): In the past, pt was requesting mesalamine script for treatment prn. I explained to pt that this really should be coming from GI specialist, and at that time he refused to see a new GI Assessment & Plan (12/17/2023 2:29 PM EDT): Requesting mesalamine script for treatment prn I explained to pt that this really should be coming from GI specialist At this time he refuses to see a new GI Will reach out if he changes his mind Assessment & Plan (09/16/2023 3:27 PM EDT): No acute pain Assessment & Plan (04/01/2023 2:59 PM EST): Stable at this time Gynfdlq7504/01/2023 Assessment & Plan (04/01/2023 3:00 PM EST): At this time he does not feel he needs medicated Family history of coronary bzgylkobtkgfvufw13/06/2024ulmonary hypertension 04/01/2023 Assessment & Plan (09/15/2024 3:11 PM EDT): Cardiology [facility], last appt 03/20 They recommend further testing w cath R/L he declined Was prescribed hydrochlorothiazide, and b vale Assessment & Plan (06/16/2024 6:54 AM EDT): Cardiology [facility], last appt 03/20 They recommend further testing w cath R/L he declined Was prescribed hydrochlorothiazide, and b vale Assessment & Plan (12/17/2023 2:08 PM EDT): Was referred to Cardiology They recommend further testing w cath R/L he declined Was prescribed HCTZ Assessment & Plan (04/01/2023 2:59 PM EST): Referred to [facility] Cardiology Appt made while pt was here for 04/11/23 Vxmvomoe63/06/2024 Resolved Problems ProblemNoted DateDiagnosed DateResolved DateCrohn's disease, unspecified, without wdlhhqlwteluq99Pulmonary hypertension, unspecified /hronic obstructive pulmonary disease, ptnjpinucwc13/23/2025 06/16/2024ancer of gbykhy45Tobacco user Assessment & Plan (12/17/2023 6:52 AM EDT): The patient has been advised of the risks of continued smoking: stroke, MN, all forms of cancer, lung disease, and . Options for quitting smoking include: cold turkey, hypnosis, acupuncture, nicotine replacement meds(gum, lozenges, and patches), Buproprion, and Varenicline. At this time pt is encouraged to evaluate their goals for wanting to quit smoking, and reach out toprovider when ready to start this process Assessment & Plan (09/16/2023 3:27 PM EDT): The patient has been advised of the risks of continued smoking: stroke, MN, all forms of cancer, lung disease, and . Options for quitting smoking include: cold turkey, hypnosis, acupuncture, nicotine replacement meds(gum, lozenges, and patches), Buproprion, and Varenicline. At this time pt is encouraged to evaluate their goals for wanting to quit smoking, and reach out toprovider when ready to start this process Encounters DateTypeDepartmentCare EukaPvynaexkctj72/19/2025bstract [facility] [address] [place] [address] Leah Olson NP from Last 3 Months Immunizations ImmunizationAdministration DatesNext DueInfluenza, trivalent, adjuvanted 12/17/2023 Social History Tobacco UseTypesPacks/DayYears UsedDateSmoking Tobacco: Every DayCigarettes Passive Smoke Exposure: Current Tobacco Cessation:Ready to Q uit: No; Counseling Given: Yes Alcohol UseStandard Drinks/WeekCommentsNever0 (1 standard drink = 0.6 oz pure alcohol)PHQ-2AnswerDate RecordedPatient Health Questionnaire-2 Ptozp005 Sex and Gender InformationValueDate RecordedSex Assigned at BirthNot on file Legal FulQvxh2305/08/2022 6:46 PM EDTGender IdentityNot on fileSexual Orientation Not on file Last Filed Vital Signs Vital SignReadingTime TakenCommentsBlood Pvoohglr525/76009/20/2024 4:40 PM EDT Dvjpe243909/20/2024 4:40 PM OKVVbalyzrkurq49.9 ??C (98.4 ??F)09/20/2024 4:40 PM EDTRespiratory Upsk027709/20/2024 4:40 PM EDTOxygen Vnrznitauh57%09/20/2024 4:40 PM EDTInhaled Oxygen Concentration--Wpzihf87.6 kg (155 lb 9.6 oz)09/20/2024 4:40 PM GKVBpvewl058.5 cm (5' 7.5 )09/15/2024 1:22 PM EDTBody Mass Index24.01 09/15/2024 1:22 PM EDT Plan of Treatment Not on file Insurance Rd [address] [place] [phone] Care Teams Team MemberRelationshipSpecialtyStart DateEnd Date Nicolas Trujillo MD [facility] - [facility] Tttraylt58/31/24 Leah Olson NP Nurse PractitionerHunt Memorial Hospital Medicine10/21/23
--- OUTSIDE RECORDS SUMMARY | 2024-12-27 15:29 | XMS_ITS | Encounter Summary ---
Author Organization [facility] Address [address] [place] [address] Care Team Providers Care Technical Business Systems Analyst Name Role Phone Nicolas Trujillo MD Primary Care Provider [phone] Leah Olson NP Unavailable [phone] Unallocated, Noms Provider Primary Care Provi darlene Nicolas Trujillo MD Primary Care Provider [phone] AicLeah pereira POCKET MACHINE OPERATOR Unavailable [phone] Encounter Details DateTypeDepartmentCare Team (Latest Contact Info)Qyxeghqcodq57/26/2024Clinisync Result Encounter [facility] External Department Unsolicited Shaikh Fairbanks MD [address] [place] [address] Social History Tobacco UseTypesPacks/DayYears UsedDateSmoking Tobacco: Every DayCigarettes Passive Smoke Exposure: CurrentAlcohol UseStandard Drinks/WeekCommentsNever0 (1 standard drink = 0.6 oz pure alcohol)PHQ-2AnswerDate RecordedPatient Health Questionnaire-2 [id number] and Gender InformationValueDate RecordedSex Assigned at BirthNot on fileLegal QiqZtgg7305/08/2022 6:46 PM EDTGender Identity Not on fileSexual OrientationNot on filedocumented as of this encounter Functional Status * Over the past 2 weeks, how often have you been bothered by any of the following problems?QuestionAnswerDate of AssessmentAuthorLittle interest or pleasure in doing thingsNot at all09/20/2024 4:42 PM Yudy Umana MA Feeling down, depressed, or hopelessNot at all09/20/2024 4:42 PM Yudy Umana MAPatient Health Questionnaire-2 Limsp333 4:42 PM IGNACIAT Yudy Marie MA * QuestionAnswerDate of AssessmentAuthorTrouble falling or staying asleep, or sleeping too muchNot at all09/20/2024 4:42 PM Yudy Umana MAFeeling tired or having little energyNot at all09/20/2024 4:42 PM Yudy Umana MAPoor appetite or overeatingNot at all09/20/2024 4:42 PM EDT Yudy Marie MAFeeling bad about yourself - or that you are a failure or have let yourself or your family downNot at all09/20/2024 4:42 PM IGNACIAT Yudy Marie MATrouble concentrating on things, such as reading the newspaper or watching televisionNot at all09/20/2024 4:42 PM Yudy Umana MAMoving or speaking so slowly that other people could have noticed? Or the opposite - being so fidgety or restless that you have been moving around a lot more than usual.Several days09/20/2024 4:42 PM Yudy Umana MAThoughts that you would be better off or hurting yourself in some wayNot at all09/20/2024 4:42 PM Yudy Umana MAPatient Health Questionnaire-9 Xratq739 4:42 PM Yudy Umana MA * How difficult have these problems made it for you to do your work, take care of things at home, or get along with other people?AnswerDate of Assessment AuthorNot difficult at all09/16/2023 2:00 PM Yudy Umana MA * Geriatric Depression Scale (Short Version)QuestionAnswerDate of Assessment AuthorAre you basically satisfied with your life?Yes09/16/2023 2:03 PM Yudy Garcia MAHave you dropped many of your activities and interests? No09/16/2023 2:03 PM EDYudy De La O MADo you feel that your life is empty?No09/16/2023 2:03 PM EDYudy De La O MADo you often get bored?Yes 09/16/2023 2:03 PM Yudy Umana MAAre you in good spirits most of the time?Yes09/16/2023 2:03 PM EDYudy De La O MAAre you afraid that something bad is going to happen to you?No09/16/2023 2:03 PM EDYudy De La O MADo you feel happy most of the time?Yes09/16/2023 2:03 PM EDT Yudy Marie MADo you often feel helpless?No09/16/2023 2:03 PM EDT Yudy Marie MADo you prefer to stay at home, rather than going out and doing new things?No09/16/2023 2:03 PM EDYudy De La O MADo you feel you have more problems with memory than most?Yes09/16/2023 2:03 PM uYdy Umana MADo you think it is wonderful to be alive now?No09/16/2023 2:03 PM Yudy Umana MADo you feel pretty worthless the way you are now?No 09/16/2023 2:03 PM Yudy Umana MADo you feel full of energy?No 09/16/2023 2:03 PM Yudy Umana MADo you feel that your situation is hopeless?No09/16/2023 2:03 PM Yudy Umana MADo you think that most people are better off than you are?No09/16/2023 2:03 PM Yudy Umana MAGeriatric Depression Scale (Short Version) Telgj390 2:03 PM EDT Yudy Marie MA documented as of this encounter Plan of Treatment Not on file documented as of this encounter Procedures Procedure NamePriorityDate/TimeAssociated DiagnosisCommentsXR CERVICAL SPINE 2-3V08/20/2023 9:15 AM EDT documented in this encounter Results * XR CERVICAL SPINE 2-3V (08/20/2023 9:15 AM EDT)Anatomical RegionLaterality ModalityOtherSpecimen (Source)Anatomical Location / LateralityCollection Method / VolumeCollection TimeReceived Time08/20/2023 9:15 AM EDT Narrative 08/20/2023 10:15 AM EDT [facility] ?[address] ? [place] [address] ?XRay Report ? Signed ? Patient: ROSITA,MIR P ?MR#: [id number] ?? : 1955 ?Acct:[id number] ?? Age/Sex: 67 / M ?ADM Date: 08/19/23 ?? Loc: RAD ? Attending Dr: Shaikh Magdi Pandey ? Ordering Physician: Shaikh Katherin Fairbanks ?? Date of Service: 08/19/23 ?? Procedure(s): XR cervical spine 2-3V ?? Accession Number(s): [id number] ? cc: Leah Olson POCKET MACHINE OPERATOR; Shaikh Katherin Fairbanks ? [facility] ? [address] [place] [address] ? [place] [address] ? Patient Name: ?? MIR BECKER ? MRN: [id number] ? date: 1955 ?Sex: M ?? Assigned Patient Location: RAD ?? Current Patient Location: ? Accession/Order Number: [id number] ?? Exam Date: 08/19/2023 ??15:05 ?Report Date: 08/20/2023 ??09:15 ? At the request of: ?MAGDI ? Procedure: ??XR cervical spine 2-3V ? EXAMINATION: XR cervical spine 2-3V ? HISTORY: Chronic neck pain M54.2 ? COMPARISON: No relevant comparison available. ? FINDINGS: ?? BONES: Normal alignment with no acute fracture or spondylolisthesis. Mild ?? degenerative spondylosis. Moderate facet osteoarthropathy ?? DISC SPACES: Normal. No significant disc height narrowing, subluxation, or ?? endplate abnormality. ?? PARASPINOUS: Negative. No paraspinous abnormality is seen. ?? OTHER: Negative. ? XR/XR cervical spine 2-3V ?? IMPRESSION: ? Mild to moderate degenerative changes ? Electronically authenticated by: ??TED ?? Date: 08/20/2023 ??09:15 ? Dictated By: ?David Jean M.D. ? Signed By: ?08/20/23 1015 ? DD/ 0915 ? TD/TT: ? Lens And Fr[employer] Prescription Clerk: Procedure Note Radiology, Radiologist, - 08/20/2023 [place] [address] XRay Report Signed Patient: MIR BECKER PMR#: [id number] : 1955cct:[id number] Age/Sex: 67 / MADM Date: 08/19/23 Loc: RAD Attending Dr: Shaikh Magdi Pandey Ordering Physician: Shaikh Katherin Fairbanks Date of Service: 08/19/23 Procedure(s): XR cervical spine 2-3V Accession Number(s): [id number] cc: Leah Olson POCKET MACHINE OPERATOR; Shaikh Katherin Fairbanks The [address] [address] Patient Name: MIR BECKER MRN: [id number] date: 1955 Sex: M Assigned Patient Location: [facility] Current Patient Location: Accession/Order Number: [id number] Exam Date: 08/19/2023 15:05 Report Date: 08/20/2023 09:15 At the request of: SHAIKH MAGDI Procedure: XR cervical spine 2-3V EXAMINATION: XR cervical spine 2-3V HISTORY: Chronic neck pain M54.2 COMPARISON: No relevant comparison available. FINDINGS: BONES: Normal alignment with no acute fracture or spondylolisthesis. Mild degenerative spondylosis. Moderate facet osteoarthropathy DISC SPACES: Normal. No significant disc height narrowing, subluxation, or endplate abnormality. PARASPINOUS: Negative. No paraspinous abnormality is seen. OTHER: Negative. XR/XR cervical spine 2-3V IMPRESSION: Mild to moderate degenerative changes Electronically authenticated by: DAVID JEAN Date: 08/20/2023 09:15 Dictated By: David Jean M.D. Signed By:08/20/23 1015 DD/ 0915 TD/TT: [employer] Prescription Clerk: Authorizing ProviderResult TypeResult StatusShaikh Magdi MDCLINISYNC IMAGING Final Result documented in this encounter Visit Diagnoses Not on filedocumented in this encounter Care Teams Team MemberRelationshipSpecialtyStart DateEnd Date Nicolas Trujillo MD [facility] - [facility]2409 Unallocated, Noms MD [address] [place] [address] [facility] Eoonmnwv15/23/ Nicolas Trujillo MD PCP - GeneralFamily Pcgfikkh45/31/24 Leah Olson NP [address] [place] [address] PCP - C12//04/20 Leah Olson NP Nurse PractitionerAnna Jaques Hospital Medicine10/21/23documented as of this encounter
--- OUTSIDE RECORDS SUMMARY | 2024-12-27 15:29 | XMS_ITS | Encounter Summary ---
Author Organization [facility] Address [address] [facility] [place] [address] Care Team Providers Care Talent Acquisition Sourcer Name Role Phone Nicolas Trujillo MD Primary Care Provider [phone] Leah Olson YARD WORKER Unavailable [phone] Unallocated, Noms Provider Primary Care Provi darlene Nicolas Trujillo MD Primary Care Provider [phone] Leah Olson YARD WORKER Unavailable [phone] Encounter Details DateTypeDepartmentCare Team (Latest Contact Info)Nxgynwnxrdg68/25/2024Clinisync Result Encounter [facility] External Department Unsolicited Leah Olson, YARD WORKER [address] [place] [address] Social History Tobacco UseTypesPacks/DayYears UsedDateSmoking Tobacco: Every DayCigarettes Passive Smoke Exposure: CurrentAlcohol UseStandard Drinks/WeekCommentsNever0 (1 standard drink = 0.6 oz pure alcohol)PHQ-2AnswerDate RecordedPatient Health Questionnaire-2 Lhetx694Sex and Gender InformationValueDate RecordedSex Assigned at BirthNot on fileLegal DbdGudb4805/08/2022 6:46 PM EDTGender Identity Not on fileSexual OrientationNot on filedocumented as of this encounter Functional Status * Over the past 2 weeks, how often have you been bothered by any of the following problems?QuestionAnswerDate of AssessmentAuthorLittle interest or pleasure in doing thingsNot at all09/20/2024 4:42 PM Yudy Umana MA Feeling down, depressed, or hopelessNot at all09/20/2024 4:42 PM Yudy Umana MAPatient Health Questionnaire-2 Xkwyj975 4:42 PM EDT Yudy Marie MA * [...] 4:42 PM Yudy Umana MAPatient Health Questionnaire-9 Knlrf834 4:42 PM Yudy Umana MA * How difficult have these problems made it for you to do your work, take care of things at home, or get along with other people?AnswerDate of Assessment AuthorNot difficult at all09/16/2023 2:00 PM Yudy Umana MA * Geriatric Depression Scale (Short Version)QuestionAnswerDate of Assessment AuthorAre you basically satisfied with your life?Yes09/16/2023 2:03 PM EDYudy Forman MAHave you dropped many of your activities [...] problems with memory than most?Yes09/16/2023 2:03 PM Yudy Umana MADo you think it is wonderful [...] Yudy Umana MAGeriatric Depression Scale (Short Version) Znxfc203 2:03 PM EDT Yudy Marie MA documented as of this encounter Plan of Treatment Not on file documented as of this encounter Procedures Procedure NamePriorityDate/TimeAssociated DiagnosisCommentsRT PULMONARY FUNCTION TEST08/19/2023 12:50 PM EDT documented in this encounter Results * RT PULMONARY FUNCTION TEST (08/19/2023 12:50 PM EDT)Anatomical Region LateralityModalityOtherSpecimen (Source)Anatomical Location / Laterality Collection Method / VolumeCollection TimeReceived Time08/19/2023 12:50 PM EDT Narrative 09/01/2023 8:08 AM EDT [facility] ?[address] ? [place] [address] ? Respiratory Report ? Signed ? Patient: MIR BECKER ?MR#: [id number] ?? : 1955 ?Acct:[id number] ?? Age/Sex: 67 / M ?ADM Date: 08/19/23 ?? Loc: LAB ? Attending Dr: Leah Olson YARD WORKER ? Ordering Physician: Leah Olson YARD WORKER ?? Date of Service: 08/19/23 ?? Procedure(s): RT pulmonary function test ?? Accession Number(s): [id number] ? cc: ?[facility] ? Test Date: ?2023-08-19 ?? Pat Name: ? MIR BECKER ?Department: ? Room: ? - ?? Gender: ? Male ? Internet Marketing Manager: ?? Pauline Castro,POWER CRANE OPERATOR ?? : ?1955 ? Requested By: LEAH GAURIYohannesMEL ?? Order Number: [id number] ?Reading MD: ?? Keith Zuniga ? Interpretive Statements ?? Pulmonary function testing was completed according to ATS criteria. Findings ?? were considered accurate and reproducible. Both pre- and post-bronchodilator ?? values utilized for spirometry. Due to software limitations, no prior studies ?? (if performed previously) are currently available for comparison. ? Spirometry (based on pre-bronchodilator values): ?? -FEV1/FVC: Reduced @ 69% ?? -FEV1: Moderately reduced @ 79% ?? -FVC: Normal @ ??86% ?? -There is no significant bronchodilator response. ? Lung volumes by plethysmography (based on pre-bronchodilator values): ?? -RV: Increased @ 140% ?? -TLC: Normal @ 96% ? Diffusion capacity: ?? -DLCO: Severe reduction @ 42% when corrected for Hb 14.2g/dL ? Impression: ?? -Spirometry suggests moderate obstruction. An elevated RV suggests air ?? trapping. There is a severely reduced diffusion capacity. Overall study is ?? compatible with emphysema/COPD. Clinical correlation required. ? Electronically Signed On 09-01-2023 8:08:24 EDT by Keith Zuniga ? Dictated By: ?Keith Zuniga D.O. ? Signed By: ?09/01/23 0808 ? DD/ 1250 ? TD/TT: ? Reservoir Engineering Manager: Procedure Note Radiology, Radiologist, - 09/01/2023 [place] [address] Respiratory Report Signed Patient: MIR BECKER PMR#: [id number] : 1955cct:[id number] Age/Sex: 67 / MADM Date: 08/19/23 Loc: LAB Attending Dr: Leah Olson YARD WORKER Ordering Physician: Leah Olson NP Date of Service: 08/19/23 Procedure(s): RT pulmonary function test Accession Number(s): [id number] cc: [facility] Test Date: 2023-08-19 Pat Name: MIR BECKER Department: Room: - Gender: Male Internet Marketing Manager: Pauline Castro RRT : 1955 Requested By: LEAH OLSON Order Number: [id number] Janet MD: Keith Zuniga Interpretive Statements Pulmonary function testing was completed according to ATS criteria.Findings were considered accurate and reproducible. Both pre- andpost-bronchodilator values utilized for spirometry. Due to software limitations, no priorstudies (if performed previously) are currently available for comparison. Spirometry (based on pre-bronchodilator values): -FEV1/FVC: Reduced @ 69% -FEV1: Moderately reduced @ 79% -FVC: Normal @ 86% -There is no significant bronchodilator response. Lung volumes by plethysmography (based on pre-bronchodilator values): -RV: Increased @ 140% -TLC: Normal @ 96% Diffusion capacity: -DLCO: Severe reduction @ 42% when corrected for Hb 14.2g/dL Impression: -Spirometry suggests moderate obstruction. An elevated RV suggests air trapping. There is a severely reduced diffusion capacity. Overall study is compatible with emphysema/COPD. Clinical correlation required. Electronically Signed On 09-01-2023 8:08:24 EDT by Keith Zuniga Dictated By: Keith Zuniga D.O. Signed By:09/01/23 0808 DD/ 1250 TD/TT: Reservoir Engineering Manager: Authorizing ProviderResult TypeResult StatusLisa Olson NPCLINISYNC IMAGING Final Result documented in this encounter Visit Diagnoses Not on filedocumented in this encounter Care Teams Team MemberRelationshipSpecialtyStart DateEnd Date Nicolas Trujillo MD PCP - GeneralFamily Medicine03/25/2409 Unallocated, Noms MD Rich [address] [place] [address] PCP - GeneralFamily Pyophzrp68/23/ Nicolas Trujillo MD PCP - GeneralFamily Rjmljrhs35/31/24 Leah Olson NP [address] [facility] [place] [address] PCP - [facility]/ Leah Olson NP Nurse PractitionerFamily [facility]10/21/23documented as of this encounter
--- OUTSIDE RECORDS SUMMARY | 2024-12-27 15:29 | XMS_ITS | Encounter Summary ---
Author Organization [facility] Address [address] [facility] [place] [address] Care Team Providers Care Putty And Patch Worker Name Role Phone Nicolas Trujillo MD Primary Care Provider [phone] Leah Olson NP Unavailable [phone] Unallocated, Noms Provider Primary Care Provi darlene Nicolas Trujillo MD Primary Care Provider AicLeah pereira TECHNICAL SUPPORT SPECIALIST Unavailable [phone] Encounter Details DateTypeDepartmentCare Team (Latest Contact Info)Hnfalervapb01/25/2024Clinisync Result Encounter [facility] External Department Unsolicited Shaikh Fairbanks MD [address] [place] [address] Social History Tobacco UseTypesPacks/DayYears UsedDateSmoking Tobacco: Every DayCigarettes Passive Smoke Exposure: CurrentAlcohol UseStandard Drinks/WeekCommentsNever0 (1 standard drink = 0.6 oz pure alcohol)PHQ-2AnswerDate RecordedPatient Health Questionnaire-2 Xgokx083Sex and Gender InformationValueDate RecordedSex Assigned at BirthNot on fileLegal BnvFgyg7405/08/2022 6:46 PM EDTGender Identity Not on fileSexual OrientationNot on filedocumented as of this encounter Functional Status * Over the past 2 weeks, how often have you been bothered by any of the following problems?QuestionAnswerDate of AssessmentAuthorLittle interest or pleasure in doing thingsNot at all09/20/2024 4:42 PM Yudy Umana MA Feeling down, depressed, or hopelessNot at all09/20/2024 4:42 PM Yudy Umana MAPatient Health Questionnaire-2 Kkjyf642 4:42 PM IGNACIAT Yudy Marie MA * [...] 4:42 PM Yudy Umana MAPatient Health Questionnaire-9 Isvsm182 4:42 PM Yudy Umana MA * How [...] Yudy Umana MAGeriatric Depression Scale (Short Version) Jtpvc784 2:03 PM EDT Yudy Marie MA documented as of this encounter Plan of Treatment Not on file documented as of this encounter Procedures Procedure NamePriorityDate/TimeAssociated DiagnosisCommentsXR THORACIC SPINE 3V 08/19/2023 11:20 PM EDT documented in this encounter Results * XR THORACIC SPINE 3V (08/19/2023 11:20 PM EDT)Anatomical RegionLaterality ModalityOtherSpecimen (Source)Anatomical Location / LateralityCollection Method / VolumeCollection TimeReceived Time08/19/2023 11:20 PM EDT Narrative 08/19/2023 11:[address] [facility] ?[address] ? [place] [address] ?XRay Report ? Signed ? Patient: ROSITA,MARK P ?MR#: [id number] ?? : 1955 ?Acct:[id number] ?? Age/Sex: 67 / M ?ADM Date: 08/19/23 ?? Loc: RAD ? Attending Dr: Shaikh Magdi Pandey ? Ordering Physician: Shaikh Katherin Fairbanks ?? Date of Service: 08/19/23 ?? Procedure(s): XR thoracic spine 3V ?? Accession Number(s): [id number] ? cc: Leah Olson NP; Shaikh Katherin Fairbanks ? [facility] ? [address] [place] [address] ? [place] [address] ? Patient Name: ?? MARK BECKER ? MRN: [id number] ? date: 1955 ?Sex: M ?? Assigned Patient Location: RAD ?? Current Patient Location: RAD ?? Accession/Order Number: [id number] ?? Exam Date: 08/19/2023 ??15:05 ?Report Date: 08/19/2023 ??23:20 ? At the request of: ?MAGDI ? Procedure: ??XR thoracic spine 3V ? Three views of the thoracic spine ? INDICATION: Pain ? COMPARISON: None ? XR/XR thoracic spine 3V ?? IMPRESSION: ?? Mild multilevel degenerative changes of the thoracic spine without evidence ?? for ?? acute fracture or subluxation. Soft tissues grossly unremarkable. ? Electronically authenticated by: RUSS ??SELVAM ?? Date: 08/19/2023 ??23:20 ? Dictated By: ?Lori,Russ Carey.Arvin. ? Signed By: ?08/19/23 2322 ? DD/ ? TD/TT: ? Tack Cleaner: Procedure Note Radiology, Radiologist, - 08/19/[address] [address] XRay Report Signed Patient: MARK BECKER PMR#: [id number] : 1955cct:[id number] Age/Sex: 67 / MADM Date: 08/19/23 Loc: RAD Attending Dr: Shaikh Magdi Pandey Ordering Physician: Shaikh Katherin Fairbanks Date of Service: 08/19/23 Procedure(s): XR thoracic spine 3V Accession Number(s): [id number] cc: Leah Olson TECHNICAL SUPPORT SPECIALIST; Shaikh Katherin Fairbanks The [address] [address] Patient Name: MARK BECKER MRN: [id number] date: 1955 Sex: M Assigned Patient Location: [facility] Current Patient Location: [facility] Accession/Order Number: [id number] Exam Date: 08/19/2023 15:05 Report Date: 08/19/2023 23:20 At the request of: SHAIKH MAGDI Procedure: XR thoracic spine 3V Three views of the thoracic spine INDICATION: Pain COMPARISON: None XR/XR thoracic spine 3V IMPRESSION: Mild multilevel degenerative changes of the thoracic spine withoutevidence for acute fracture or subluxation. Soft tissues grossly unremarkable. Electronically authenticated by: RUSS SIMMS Date: 08/19/2023 23:20 Dictated By: Russ Simms M.D. Signed By:08/19/232321 DD/ 19 TD/TT: Tack Cleaner: Authorizing ProviderResult TypeResult StatusShaikh Magdi MDCLINISYNC IMAGING Final Result documented in this encounter Visit Diagnoses Not on filedocumented in this encounter Care Teams Team MemberRelationshipSpecialtyStart DateEnd Date Nicolas Trujillo MD PCP - GeneralFamily Medicine03/25/2409 Unallocated, Noms MD Rich [address] [place] [address] [facility] Supunfvd75/23/ Nicolas Trujillo MD PCP - GeneralFamily Rqxjscki03/31/24 Leah Olson NP [address] [place] [address] PCP - Leah Olson NP Nurse PractitionerFamily Medicine10/21/23documented as of this encounter
--- OUTSIDE RECORDS SUMMARY | 2024-12-27 15:32 | XMS_ITS | CCD ---
Author Organization [facility] CliniSyva Care Team Providers Care Break Out Man Name Role Phone No, Physician Unavailable Unavailable GABINO, JEROME JIMENEZ Unavailable Unavailable GABINO, JEROME JIMENEZ Unavailable Unavailable NO, PHYSICIAN Unavailable Unavailable GABINO, JEROME JIMENEZ Unavailable Unavailable GABINO, JEROME JIMENEZ Unavailable Unavailable NO, PHYSICIAN Unavailable Unavailable No, Physician Primary Care Provider Unavailabl e Nicolas Trujillo MD Primary Care Provider Aichholevan RETAIL PARTS PROFESSIONAL, Leah Unavailable UnalMaurice nair MD Provider Primary Care Provi darlene EDNA BOUDREAUX Attending Unavailable EDNA BOUDREAUX Attending Unavailable Nicolas Trujillo MD Primary Care Provider LEAH OLSON Attending Unavailable AICHHOLZ, LEAH Attending Unavailable AICHHOLZ, LEAH Attending Unavailable AICHHOLZ, LEAH Attending Unavailable Aichholz RETAIL PARTS PROFESSIONAL-C, Leah Leyva Primary Care Provider Wesley RETAIL PARTS PROFESSIONAL-C, Leah Leyva Attending Provider Nicolas Trujillo MD Primary Care Provider Aichholevan RETAIL PARTS PROFESSIONAL, Leah Unavailable Maurice Bullock MD Provider Primary Care Provi darlene Nicolas Trujillo MD Primary Care Provider Aichholevan RETAIL PARTS PROFESSIONAL, Leah Unavailable Medications Current Medications MedicationDrug Class(es)DatesSig (Normalized)Sig (Original)[id number] 200 actuat albuterol 0.09 mg/actuat metered dose inhaler (16 sources)beta2-Adrenergic AgonistStart: 52-73-4952Ajrlg: 09-16-2023 End: 89-00-3347hmyz 2 puff(s) by inhalation every six hours for wheezing albuterol HFA 90 mcg/act inhaler Indications: COPD mixed type (HCC) Inhale 2 puffs every 6 (six) hours if needed for wheezing or shortness of breath 18 g 1 09/15/2024 10/15/2024 Activeaspirin 81 mg delayed release oral tablet (13 sources)Platelet Aggregation Inhibitor, Nonsteroidal Anti-inflammatory Drug Start: 09-15-2024 End: 65-38-5610pqnk 1 tablet by mouth once dailycarvedilol 3.125 mg oral tablet (13 sources)alpha-Adrenergic Nadeem, beta-Adrenergic BlockerStart: 03-05-2024 End: 57-82-0951webg 1 tablet by mouth twice daily at mealtimehydroCHLOROthiazide 25 mg oral tablet (18 sources)Thiazide DiureticStart: 04-11-2023 End: 15-19-0315ojpy 1 tablet by mouth once dailyrOPINIRole 0.5 mg oral tablet (18 sources)Nonergot Dopamine AgonistStart: 09-16-2023 End: 25-36-7093bpjn 1 tablet by mouth once daily at bedtimeStart: 02-38-9385iyfo 1 tablet by mouth at bedtimerOPINIRole (Requip) 0.5 MG tablet Take 1 tablet by mouth at bedtime 0 01/15/2023 ActivetiZANidine 4 mg oral tablet (16 sources)Central alpha-2 Adrenergic AgonistStart: 83-76-0904qdja 1 tablet by mouth once daily at bedtime as neededStart: 09-16-2023 End: 23-88-9024syDBBaxrtu (Zanaflex) 4 MG tablet Indications: Cervical pain (neck) Take 1 tablet (4 mg) by mouth as needed at bedtime for muscle spasms May cause drowsiness 30 tablet 1 09/15/2024 10/15/2024 Active Problems Active Problems Problem ClassificationProblemDateDocumented DateEpisodic/ChronicAnxiety disorders (20 sources)Anxiety; Translations: [Anxiety disorder, unspecified]Onset: 978372-44-7148ShiccsrJfgzixo dysrhythmias (2 sources)Palpitations; Translations: [Palpitations]Onset: 89-01-6936Poupdzbe Chronic obstructive pulmonary disease and bronchiectasis (20 sources)Chronic obstructive lung disease; Translations: [Chronic obstructive pulmonary disease, unspecified]Onset: 07-17-2023 Resolved: 693735-97-4803GbaqnthSlbtqzhjw hypertension (19 sources)Essential hypertension; Translations: [Essential (primary) hypertension]Onset: 106041-79-4790SfytbslYrhqz hereditary and degenerative nervous system conditions (20 sources)Restless legs; Translations: [Restless legs syndrome]Onset: 235080-29-7025TbcqdxqBeymgfipx heart disease (20 sources)Pulmonary hypertension; Translations: [Pulmonary hypertension, unspecified]Onset: 04-01-2023 Resolved: 168448-22-3125KdfiixrGxxkbkog enteritis and ulcerative colitis (20 sources)Crohn's disease; Translations: [Crohn's disease, unspecified, without complications]Onset: 04-01-2023 Resolved: 912872-24-2346VkvmficMbfyddldt-qbxkpil disorders (20 sources)Tobacco dependence syndrome; Translations: [Nicotine dependence, unspecified, uncomplicated]Onset: 131994-91-8821AnuevvpZgsxphzdgvpq (2 sources)[place] LAB Physician Contact Required; Translations: [[place] LAB Physician Contact Required]Onset: 09-10-2017 Past or Other Problems Problem ClassificationProblemDateDocumented DateEpisodic/ChronicCancer of kidney and renal pelvis (19 sources)Malignant tumor of kidney; Translations: [Malignant neoplasm of unspecified kidney, except renal pelvis]Onset: 04-01-2023 Resolved: 839378-01-5628EizdarrCgxgul of kidney and renal pelvis (20 sources)History of malignant neoplasm of retroperitoneum; Translations: [Personal history of other malignant neoplasm of kidney]Onset: 09-16-2023 42-86-8240CfyubcdrDwlqkbffqzvnn and screening for infectious disease (18 sources)Needs influenza immunization; Translations: [Encounter for immunization]Onset: 197785-18-9235IkrxsopzFyef disorders (14 sources)Mood disordersOnset: 09-16-2023 Resolved: Other endocrine disorders (20 sources)Hypotestosteronism; Translations: [Endocrine disorder, unspecified] Onset: 239450-97-1200TaxrkgthLhcpd non-traumatic joint disorders (16 sources)Joint pain; Translations: [Pain in unspecified joint]Onset: 309750-95-5563CcdhwrrdOnfki screening for suspected conditions (not mental disorders or infectious disease) (20 sources)Patient encounter status; Translations: [Encounter for screening for malignant neoplasm of prostate]Onset: 604345-16-3912PurldtshVejrxhcl codes; unclassified (20 sources)Tobacco user; Translations: [Tobacco use]Onset: 04-01-2023 Resolved: 197183-39-7155TwpplxfxBosbflrj codes; unclassified (20 sources)Family history of coronary arteriosclerosis; Translations: [Family history of ischemic heart disease and other diseases of the circulatory system] Onset: 481090-92-8742SpacfjycVonbjqjt codes; unclassified (20 sources)Insomnia; Translations: [Insomnia, unspecified]Onset: 04-01-2023 23-27-0350ZtvgznodToasciqh codes; unclassified (16 sources)Lung cancer screening declined; Translations: [Procedure and treatment not carried out because of patient's decision for unspecified reasons] Onset: 104710-03-5513IzipnnlsDkgpmizz codes; unclassified (14 sources)Patient noncompliance - general; Translations: [Medical non-compliance]Onset: 283625-15-6540OepblhjrGmwtoupqixt; intervertebral disc disorders; other back problems (20 sources)Low back pain; Translations: [Low back pain]Onset: 09-10-2017 14-72-1273Rnurgizj Results Test NameValueInterpretationReference RangeFacilityALL CBC WITH AUTO DIFFon 45-68-9068EALVESPEY ABSOLUTE HJOP9SRAK HealthcareBasophils/100 WBC (Bld)0.6 %0.2 - 2.0 %[facility] HealthcareEosinophils/100 WBC (Bld)3.7 %0.9 - 7.0 %[facility] Erythrocyte distribution width (RBC) [Ratio]13.4 %11.0 - 15.0 %[facility] Hematocrit (Bld) [Volume fraction]45.7 %42.0 - 54.0 %[facility] HospitalHemoglobin (Bld) [Mass/Vol]15 g/dL14.0 - 18.0 g/dLHannibal Regional HospitalIMMATURE GRANULOCYTES ABS AUTO0.03NOThree Rivers HealthcareImmature granulocytes/100 WBC (Bld)0.5 %0.0 - 0.5 %[facility] HospitalInterpretation and review of laboratory resultsAbnormalH[facility] Hospital LYMPHOCYTES ABSOLUTE AUTO1.4NOThree Rivers HealthcareLymphocytes/100 WBC (Bld)21.5 %20.5 - 60.0 %[facility] CenterH (RBC) [Entitic mass]30.1 pg25.9 - 34.0 pgSaint Mary's Health CenterHC (RBC) [Mass/Vol]32.8 g/dL29.9 - 35.2 g/dLHannibal Regional HospitalMCV (RBC) [Entitic vol]91.8 fL80.0 - 94.0 fLHannibal Regional HospitalMONOCYTES ABSOLUTE AUTO0.5NOThree Rivers HealthcareMonocytes/100 WBC (Bld)6.9 %1.7 - 12.0 %[facility] HospitalNEUTROPHILS ABSOLUTE AUTO4.4[facility] HealthcareNeutrophils/100 WBC (Bld)66.8 %43.0 - 75.0 %[facility] HospitalPlatelet mean volume (Bld) [Entitic vol]8.6 fLLow9.5 - 13.5 fLHannibal Regional HospitalTBH EO #0.2NOMS HealthcareTBH MJA701RDMX [facility] CenterTB RBC4.98NOMS [facility] WBC6.6NOThree Rivers HealthcareCLINISYNCNOKLAHOMA SURGICAL [facility] HealthcareXR THORACIC SPINE 3V on 26-57-7695[address] [address] XRay Report Signed Patient: MARK ALICIA MR#: [id number] : 1955 Acct:[id number] Age/Sex: 68 / M ADM Date: 09/20/24 Loc: LAB Attending Dr: Leah Olson NP Ordering Physician: Leah Olson NP Date of Service: 09/20/24 Procedure(s): XR thoracic spine 3V Accession Number(s): [id number] cc: Leah Olson NP [facility] [place] [id number] Patient Name: MARK ALICIA MRN: [facility]:[id number] date: 1955 Sex: M Assigned Patient Location: LAB Current Patient Location: LAB Accession/Order Number: [id number] Exam Date: 09/20/2024 11:14 Report Date: 09/20/2024 11:18 At the request of: LEAH OLSON NP Procedure: XR thoracic spine 3V THORACIC SPINE - 3 views: CLINICAL HISTORY: Chronic thoracic pain. No history of injury. COMPARISON: 08/19/2023 AP, lateral and swimmer's views were obtained. A marker was placed in the area of patient's pain. There is osteopenia. A central venous line is again seen on the right. There is no acute compression fracture or displacement. The pedicles are intact. Small endplate spurs are present within the vqflw-gj-gaje. There are no paraspinal soft tissue abnormalities. XR/XR thoracic spine 3V IMPRESSION: OSTEOPENIA AND MILD DEGENERATIVE CHANGES. NO ACUTE BONY FINDINGS Impression dictated by: Ese Castillo M.D. 09/20/2024 11:18 AM Dictation Location: [place] [address] Electronically authenticated by: [id number] Y Date: 09/20/2024 11:18 Dictated By: Ese Castillo M.D. Signed By: 09/20/24 1121 DD/ 1118 TD/TT: Mapper:TBHRadiology, Radiologist, - 09/20/[address] [address] XRay Report Signed Patient: MARK ALICIA MR#: [id number] : 1955 Acct:[id number] Age/Sex: 68 / M ADM Date: 09/20/24 Loc: LAB Attending Dr: Leah Olson NP Ordering Physician: Leah Olson NP Date of Service: 09/20/24 Procedure(s): XR thoracic spine 3V Accession Number(s): [id number] cc: Leah Olson NP [place] [id number] Patient Name: MARK ALICIA MRN: [facility]:[id number] date: 1955 Sex: M Assigned Patient Location: LAB Current Patient Location: LAB Accession/Order Number: [id number] Exam Date: 09/20/2024 11:14 Report Date: 09/20/2024 11:18 At the request of: LEAH OLSON NP Procedure: XR thoracic spine 3V THORACIC SPINE - 3 views: CLINICAL HISTORY: Chronic thoracic pain. No history of injury. COMPARISON: 08/19/2023 AP, lateral and swimmer's views were obtained. A marker was placed in the area of patient's pain. There is osteopenia. A central venous line is again seen on the right. There is no acute compression fracture or displacement. The pedicles are intact. Small endplate spurs are present within the ggpjh-xy-juzx. There are no paraspinal soft tissue abnormalities. XR/XR thoracic spine 3V IMPRESSION: OSTEOPENIA AND MILD DEGENERATIVE CHANGES. NO ACUTE BONY FINDINGS Impression dictated by: Ese Castillo M.D. 09/20/2024 11:18 AM Dictation Location: [place] [address] Electronically authenticated by: [id number] Y Date: 09/20/2024 11:18 Dictated By: Ese Castillo M.D. Signed By: 09/20/24 1121 DD/ 1118 TD/TT: Mapper: MAURICE HealthcareRadiology Study observation (narrative)[facility] HealthcareXR THORACIC SPINE 3VOrdered By: Radiologist Radiology on 53-49-8021[facility] Work Phone: Office Visiton [id number]-up [id number] Mark Alicia 1955 M Date Provider Department Center 03/05/2024 3843-EDNA BOUDREAUX [facility] Family History Problem Relation Age of Onset Coronary artery disease Father Heart attack Father Hypertension Brother Atrial fibrillation Brother Family Status - Relation Status Age at Father Brother Level of Service:[address] [place] OFFICE/OUTPATIENT ESTABLISHED LOW [facility]36on 46-42-059656Hbpfr with patient to inform him of normal echo performed on 10/21/[address] Dyer.[facility] Medical CenterCA ECHO DOPPLER COMPLETEon 86-06-6404OztL[place] [address] Cardiology Report Signed Patient: MARK ALICIA MR#: [id number] : 1955 Acct:[id number] Age/Sex: 67 / M ADM Date: 10/21/23 Loc: CARD Attending Dr: EDNA BOUDREAUX Ordering Physician: EDNA BOUDREAUX Date of Service: 10/21/23 Procedure(s): CA echo doppler complete Accession Number(s): [id number] cc: EDNA BOUDREAUX; Leah Olson NP Patient Name: MARK ALICIA MR#: [id number] : 1955 Exam Date: 10/21/2023 Ordering Doctor: EDNA BOUDREAUX M.D. ECHOCARDIOGRAM REPORT PROCEDURE: CA ECHO DOPPLER COMPLETE INDICATIONS: Pulmonary hypertension, emphysema COMPARISON: None. DESCRIPTION: COMPLETE ECHOCARDIOGRAM Real-time transthoracic echocardiography with 2D, M-mode, spectral and color flow Doppler performed. QUALITY: Technical quality was good. LEFT VENTRICLE: Normal chamber size. Normal left ventricular wall thickness. Systolic function is at the lower limits of normal. LV EF: Low normal left ventricular ejection fraction, (50-55%). DIASTOLIC: Normal diastolic function. ATRIAL SEPTUM: Visually appears intact. LEFT ATRIUM: Normal chamber size. RIGHT ATRIUM: Normal chamber size. RIGHT VENTRICLE: Normal chamber size. Normal right ventricular systolic function. TRICUSPID VALVE: Normal mobility and thickness. No stenosis with trivial regurgitation. No evidence of pulmonary hypertension. RVSP 33 mmHg MITRAL VALVE: Normal mobility and thickness. No evidence of mitral valve stenosis. There is no mitral annular calcification. Trivial mitral regurgitation. AORTIC VALVE: Normal trileaflet appearance. No visible sclerosis. Normal leaflet mobility. No evidence of aortic valve [...] Gradient: 3.22 mm[Hg] Right Atrium Dictated by: Vanesa Martinez M.D. on 10/21/2023 at 19:54 Approved by: Vanesa Martinez M.D. on 10/21/2023 at 19:57 Dictated By: VANESA MARTINEZ Signed By: 10/21/231958 (more content not included)...TBHRadiology, Radiologist, MD - 10/21/2023 [place] [address] Cardiology Report Signed Patient: MARK ALICIA MR#: [id number] : 1955 Acct:[id number] Age/Sex: 67 / M ADM Date: 10/21/23 Loc: CARD Attending Dr: EDNA BOUDREAUX Ordering Physician: EDNA BOUDREAUX Date of Service: 10/21/23 Procedure(s): CA echo doppler complete Accession Number(s): [id number] cc: EDNA BOUDREAUX; Leah Olson NP Patient Name: MARK ALICIA MR#: [id number] : 1955 Exam Date: 10/21/2023 Ordering Doctor: EDNA BOUDREAUX M.D. ECHOCARDIOGRAM REPORT PROCEDURE: CA ECHO DOPPLER COMPLETE INDICATIONS: Pulmonary hypertension, emphysema COMPARISON: None. DESCRIPTION: COMPLETE ECHOCARDIOGRAM Real-time transthoracic echocardiography with 2D, M-mode, spectral and color flow Doppler performed. QUALITY: Technical quality was good. LEFT VENTRICLE: Normal chamber size. Normal left ventricular wall thickness. Systolic function is at the lower limits of normal. LV EF: Low normal left ventricular ejection fraction, (50-55%). DIASTOLIC: Normal diastolic function. ATRIAL SEPTUM: Visually appears intact. LEFT ATRIUM: Normal chamber size. RIGHT ATRIUM: Normal chamber size. RIGHT VENTRICLE: Normal chamber size. Normal right ventricular systolic function. TRICUSPID VALVE: Normal mobility and thickness. No stenosis with trivial regurgitation. No evidence of pulmonary hypertension. RVSP 33 mmHg MITRAL VALVE: Normal mobility and thickness. No evidence of mitral valve stenosis. There is no mitral annular calcification. Trivial mitral regurgitation. AORTIC VALVE: Normal trileaflet appearance. No visible sclerosis. Normal leaflet mobility. No evidence of aortic valve [...] Gradient: 3.22 mm[Hg] Right Atrium Dictated by: Vanesa Martinez M.D. on 10/21/2023 at 19:54 Approved by: Vanesa Martinez M.D. on 10/21/2023 at 19:57 Dictated By: VANESA MARTINEZ Signed By: 10/21/231958 DD/ 57 TD/TT: Mapper: MAURICE HealthcareRadiology Study observation (narrative)[facility] HealthcareCA ECHO DOPPLER COMPLETEOrdered By: Radiologist Radiology on 41-68-4540M[facility] Healthcare Work Phone: Office Visiton [phone]-up [id number] Mark Alicia 1955 M Date Provider Department [facility] Family History Problem Relation Age of Onset Coronary artery disease Father Heart attack Father Hypertension Brother Atrial fibrillation Brother Family Status - Relation Status Age at Father Brother Level of Service:[address] [place] OFFICE/OUTPATIENT ESTABLISHED LOW [facility] CenterRT PULMONARY FUNCTION TESTon 78-88-8518XryL[place] [address] Respiratory Report Signed Patient: MARK ALICIA MR#: [id number] : 1955 Acct:[id number] Age/Sex: 67 / M ADM Date: 08/19/23 Loc: LAB Attending Dr: Leah Olson NP Ordering Physician: Leah Olson NP Date of Service: 08/19/23 Procedure(s): RT pulmonary function test Accession Number(s): [id number] cc: [facility] Test Date: 2023-08-19 Pat Name: MARK ALICIA Department: Room: - Gender: Male Bevel Face Stoner And Polisher: Pauline Castro RRT : 1955 Requested By: LEAH OLSON Order Number: [id number] Reading MD: Keith Zuniga Interpretive Statements Pulmonary function testing was completed according to ATS criteria. Findings were considered accurate and reproducible. Both pre- and post-bronchodilator values utilized for spirometry. Due to software limitations, no prior studies (if performed previously) are currently available for [...] Zuniga Dictated By: Keith Zuniga D.O. 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 Findings were considered accurate and reproducible. Both pre- and post-bronchodilator values utilized for spirometry. Due to software limitations, no prior studies (if performed previously) are currently available for [...] Zuniga Dictated By: Keith Zuniga D.O. Signed By: 09/01/23 0808 DD/ 1250 TD/TT: Mapper: MAURICE Gambino PULMONARY FUNCTION TESTOrdered By: Radiologist Radiology on 76-78-6858XBFS [employer] Work Phone: XR CERVICAL SPINE 2-3Von 55-08-5106TpkL[place] [address] XRay Report Signed Patient: MARK ALICIA MR#: [id number] : 1955 Acct:[id number] Age/Sex: 67 / M ADM Date: 08/19/23 Loc: ERICH Attending Dr: Shaikh Magdi Pandey Ordering Physician: Shaikh Katherin [place] Date of Service: 08/19/23 Procedure(s): XR cervical spine 2-3V Accession Number(s): [id number] cc: Leah Olson RETAIL PARTS PROFESSIONAL; Shaikh Katherin [place] [address] Patient Name: MARK ALICIA MRN: [facility]:[id number] date: 1955 Sex: M Assigned Patient Location: [facility] Current Patient Location: Accession/Order Number: [id number] Exam Date: 08/19/2023 15:05 Report Date: 08/20/2023 [...] 09:15 Dictated By: David Jean M.D. Signed By: 08/20/23 1015 DD/ 0915 TD/TT: Mapper:TBHRadiology, Radiologist, - 08/20/2023 [place] [address] XRay Report Signed Patient: MARK ALICIA MR#: [id number] : 1955 Acct:[id number] Age/Sex: 67 / M ADM Date: 08/19/23 Loc: RAD Attending Dr: Shaikh Magdi Pandey Ordering Physician: Shaikh Katherin [place] Date of Service: 08/19/23 Procedure(s): XR cervical spine 2-3V Accession Number(s): [id number] cc: Leah Olson RETAIL PARTS PROFESSIONAL; Shaikh Katherin [place] [address] Patient Name: MARK ALICIA MRN: [id number] date: 1955 Sex: M Assigned Patient Location: RAD Current Patient Location: Accession/Order Number: [id number] Exam Date: 08/19/2023 15:05 Report Date: 08/20/2023 [...] 09:15 Dictated By: David Jean M.D. Signed By: 08/20/23 1015 DD/ 0915 TD/TT: Mapper: [facility] HealthcareRadiology Study observation (narrative)[facility] HealthcareXR CERVICAL SPINE 2-3VOrdered By: Radiologist Radiology on 10-96-1916EXYW [employer]Email Group Work Phone: rt PULMONARY FUNCTION TESTon 72-59-1945Wrmqbsxnm Study observation (narrative)[facility] HealthcareXR THORACIC SPINE 3Von 75-36-9622XfdL[place] [address] XRay Report Signed Patient: MARK ALICIA MR#: [id number] : 1955 Acct:[id number] Age/Sex: 67 / M ADM Date: 08/19/23 Loc: RAD Attending Dr: Shaikh Magdi Pandey Ordering Physician: Shaikh Katherin [place] Date of Service: 08/19/23 Procedure(s): XR thoracic spine 3V Accession Number(s): [id number] cc: Leah Olson RETAIL PARTS PROFESSIONAL; Shaikh Katherin [place] [address] Patient Name: MARK ALICIA MRN: [id number] date: 1955 Sex: M Assigned Patient Location: [facility] Current Patient Location: [facility] Accession/Order Number: [id number] Exam Date: 08/19/2023 15:05 Report Date: 08/19/2023 23:20 At the request of: SHAIKH MAGDI Procedure: XR thoracic spine 3V Three views of the thoracic spine INDICATION: Pain COMPARISON: None XR/XR thoracic spine 3V IMPRESSION: Mild multilevel degenerative changes of the thoracic spine without evidence for acute fracture or subluxation. Soft tissues grossly unremarkable. Electronically authenticated by: RUSS SANDOVAL Date: 08/19/2023 23:20 Dictated By: Russ Sandoval M.D. Signed By: 08/19/232321 DD/ 19 TD/TT: Mapper:SHAUNAadiologtavia Radiologist, - 08/19/2023 [place] [address] XRay Report Signed Patient: MARK ALICIA MR#: [id number] : 1955 Acct:[id number] Age/Sex: 67 / M ADM Date: 08/19/23 Loc: RAD Attending Dr: Shaikh Magdi Pandey Ordering Physician: Shaikh Katherin [place] Date of Service: 08/19/23 Procedure(s): XR thoracic spine 3V Accession Number(s): [id number] cc: Leah Olson RETAIL PARTS PROFESSIONAL; Shaikh Katherin [place] [id number] Patient Name: MARK ALICIA MRN: [id number] date: 1955 Sex: M Assigned Patient Location: [facility] Current Patient Location: [facility] Accession/Order Number: [id number] Exam Date: 08/19/2023 15:05 Report Date: 08/19/2023 23:20 At the request of: SHAIKH MAGDI Procedure: XR thoracic spine 3V Three views of the thoracic spine INDICATION: Pain COMPARISON: None XR/XR thoracic spine 3V IMPRESSION: Mild multilevel degenerative changes of the thoracic spine without evidence for acute fracture or subluxation. Soft tissues grossly unremarkable. Electronically authenticated by: RUSS SANDOVAL Date: 08/19/2023 23:20 Dictated By: Russ Sandoval M.D. Signed By: 08/19/232321 DD/ 19 TD/TT: Mapper: MAURICE FordRadiology Study observation (narrative)[facility] HospitalXR THORACIC SPINE 3VOrdered By: Radiologist Radiology on 32-86-6717JQVY DataEmail Group Work Phone: XR LUMBAR SPINE 2-3 VIEWS (STANDARD)on 71-43-5280FB LUMBAR SPINE 2-3 VIEWS (STANDARD)EXAMINATION:XR LUMBAR SPINE 2-3 VIEWS (STANDARD)HISTORY:ORDERING SYSTEM PROVIDED HISTORY: Low back pain, TECHNOLOGIST PROVIDED HISTORY: Reason for exam: Per order- Low back pain Per pt- chronic low back pain, no known injuries, no sxIllness/OtherCancer History: naSurgery, RadiationHistory: naEncounter Type: InitialAdditional signs and symptoms: Per order- Low back pain Per pt- chronic low back pain, no known injuries, no sxORDERING SYSTEM PROVIDED DIAGNOSIS CODES:M54.5 Low back painCOMPARISON:No ne.FINDINGS:Three views of the lumbar spine were obtained. Five lumbar-type vertebrae are present. The vertebral body heights and disc spaces are maintained. Mild endplate osteophyte formation is noted at multiple levels, including bridging at L1-L2 and L4-L5. No acute fracture or subluxation. Facet hypertrophy noted at L4-L5 and L5-S1. Pedicles appear intact and symmetric. Visualized portions ofthe bony pelvis are unremarkable. Postsurgical findings noted in the right abdomen.IMPRESSION:Multilevel degenerative disc disease and lower lumbar facet arthropathy without acute abnormality.[facility]/vWorkstation ID: [id number] by: JUDSON HUNTLEY on FriSep 10, 2017 4:19:46 PM EDTTranscribed by: EVANGELISTA VALDEZ on FriSep 10, 2017 4:44:25 PM EDTFinalized by: JUDSON HUNTLEY on FriSep 10, 2017 5:57:49 PM [facility] CenterComment on above:Order Comment: Reason for exam?:Per order- Low back pain Per pt- chronic low back pain, no known injuries, no sxInjury/Trauma or Illness?:Illness/OtherHow long have you had these symptoms (acute/chron ic)?:ChronicHistory of cancer?:naSurgeries, chemotherapy, or radiation?:naType of Exam?:InitialAdditional signs and symptoms?:Per order- Low back pain Per pt- chronic low back pain, no known injuries, no sxXR Lumbar Spine 2-3 Views (Standard)on 80-71-8472Adndkfdymsmhl mass concMultilevel degenerative disc disease and lower lumbar facet arthropathy without acute abnormality. SL/Vela Systemsv Workstation ID: [id number] Interpretation [facility] XR Lumbar Spine 2-3 Views (Standard)EXAMINATION: XR LUMBAR SPINE 2-3 VIEWS (STANDARD) HISTORY: ORDERING SYSTEM PROVIDED HISTORY: Low back pain, TECHNOLOGIST PROVIDED HISTORY: Reason for exam: Per order- Low back pain Per pt- chronic low back pain, no known injuries, no sx Illness/Other Cancer History: na Surgery, RadiationHistory: naEncounter Type: Initial Additional signs and symptoms: Per order- Low back pain Per pt- chronic lowback pain, no known injuries, no sx ORDERING SYSTEM PROVIDED DIAGNOSIS CODES: M54.5 Low back pain CO MPARISON: None. FINDINGS: Three views of the lumbar spine were obtained. Five lumbar-type vertebraeare present. The vertebral body heights and disc spaces are maintained. Mild endplate osteophyte formation is noted at multiple levels, including bridging at L1-L2 and L4-L5. No acute fracture or subluxation. Facet hypertrophy noted at L4-L5 and L5-S1. Pedicles appear intact and symmetric. Visualized portions of the bony pelvis are unremarkable. Postsurgical findings noted in the right abdomen.Invalid Interpretation [facility] XR Lumbar Spine 2-3 Views (Standard)Interface, Rad In [facility]uliUofL [facility]q - 09/10/2017 6:00 PM EDT EXAMINATION: XR [...] vertebrae are present. The vertebral body heights anddisc spaces are maintained. Mild endplate osteophyte formation is noted at multiple levels, including bridging at L1-L2 and L4-L5. No acute fracture or subluxation. Facet hypertrophy noted at L4-L5 and L5-S1. Pedicles appear intact and symmetric. Visualized portions of the bony pelvis are unremarkable. Postsurgical findings noted in the right abdomen. IMPRESSION: Multilevel degenerative disc disease and lower lumbar facet arthropathy without acute abnormality. SLM/mkv Workstation ID: [id number] Interpretation CodeTIPPAH COUNTY HOSPITAL Vital Signs Date TimeVital SignValuePerforming WpcskstphBbjftwut14-28-6694 13:33-0400Body gsyybx619.72 Heavenisa Aichholz [employer] PROFESSIONAL-C Work Phone: [phone]10-23-2025 13:33-0400 Body mass index (BMI) [Ratio]24 kg/m2Lisa Aichholz [employer] PROFESSIONAL-C Work Phone: [phone]10-23-2025 13:33-0400 Body qvxxbntkinx21 [degF]Leah Aichholz [employer] PROFESSIONAL-C Work Phone: [phone]10-23-2025 13:33-0400 Body mkgxsy34.72 kgLisa Aichholz [employer] PROFESSIONAL-C Work Phone: [phone]10-23-2025 13:33-0400 Diastolic blood ciqltqmi12 mm[Hg]Leah Aichholz [employer] PROFESSIONAL-C Work Phone: [phone] [place], [place] 6284810-23-2025 13:33-0400 Heart rate81 /minLisa Aichholz [employer] PROFESSIONAL-C Work Phone: [phone] [place], [place] 6284810-23-2025 13:33-0400 Respiratory rate18 /minLisa Aichholz [employer] PROFESSIONAL-C Work Phone: [phone] [place], [place] 6284810-23-2025 13:33-0400 SaO2% (BldA) [Mass fraction]94 %Leah Aichholz [employer] PROFESSIONAL-C Work Phone: [phone] [place], [place] 6284810-23-2025 13:33-0400 Systolic blood deijnvcm317 mm[Hg]Leah Wuyordan [employer] PROFESSIONAL-C Work Phone: [facility]07-28-2025 16:40-0400 Body mass index (BMI) [Ratio]24.01 kg/m2Leah Olson [employer] PROFESSIONAL Work Phone: [facility] HospitalKstcagibio17-81-9060 16:40-0400Body temperature 98.4 [degF]Leah Wuyordan [employer] PROFESSIONAL Work Phone: [facility] HospitalGahrumgjpw54-05-3253 16:40-0400Body sujbxc74.58 kgLisa Wuholz [employer]AIL [employer] PROFESSIONAL Work Phone: [facility] HospitalKmmjemfqvq94-87-3642 16:40-0400Diastolic blood ecfgomhv56 mm[Hg]Leah Wuguerlinez [employer]AIL [employer] PROFESSIONAL Work Phone: [facility] HospitalMvrjyxzaga07-70-7815 16:40-0400Heart rate84 /min Leahimrna Wuguerlinez [employer]AIL [employer] PROFESSIONAL Work Phone: [facility] HospitalZydfhiohwy01-02-7609 16:40-0400Respiratory rate18 /minLisa Wuguerlinez [employer]AIL [employer] PROFESSIONAL Work Phone: [facility] HospitalExuqxhkmlo63-85-8409 16:40-2655SaC0% (BldA) [Mass fraction]96 %Leah Sanchezz [employer] PROFESSIONAL Work Phone: [facility] HospitalIeadpxydtq89-46-9802 16:40-0400Systolic blood xgosdnue700 mm[Hg]Leah Wuguerlinez [employer]AIL [employer]S PROFESSIONAL Work Phone: [facility] HospitalIfwdaugqav57-39-1877 13:22-0400Body ehpnpr446.5 Wong Lauraz [employer] PROFESSIONAL Work Phone: [facility] HospitalZxdhpkqioh04-83-8424 13:22-0400Body mass index (BMI) [Ratio]24.01 kg/m2Anettesa Jazminholz [employer]AIL [employer] PROFESSIONAL Work Phone: [facility] HospitalBrbzgimlxt99-38-0155 13:22-0400Body temperature 98.01 [degF]Leah Olson [employer] PROFESSIONAL Work Phone: [facility] HospitalOsqrvkevft27-87-5941 13:22-0400Body .58 kgLisa Olson [employer] PROFESSIONAL Work Phone: [facility] HospitalPdhiqowyrs85-59-9399 13:22-0400Diastolic blood xejkisii06 mm[Hg]Leah Lauraz [employer] PROFESSIONAL Work Phone: [facility] HospitalPhsbopclud77-82-2788 13:22-0400Heart rate80 /min Leah Lauarz [employer] PROFESSIONAL Work Phone: [facility] HospitalLecmqvedqs37-37-6285 13:22-0400Respiratory rate20 /minLisa Sanchezevan [employer] PROFESSIONAL Work Phone: [facility] HospitalLapzsjmxhk56-73-2560 13:22-6619LwB7% (BldA) [Mass fraction]96 %Leahmirna Sanchezz [employer]AIL [employer] PROFESSIONAL Work Phone: [facility] HospitalCzcyqqjccz23-26-1014 13:22-0400Systolic blood ummngjuz772 mm[Hg]Leah Lauraz [employer]AIL [employer] PROFESSIONAL Work Phone: [facility] HospitalRzsxzbytbq53-69-8708 13:06-0400Body mass index (BMI) [Ratio]23.24 kg/m2Leah Olson [employer] PROFESSIONAL Work Phone: [facility] HospitalGtmymyvluf63-11-3632 13:06-0400Body temperature 97.81 [degF]Leah Wuguerlinez [employer]AIL [employer]S PROFESSIONAL Work Phone: [facility] HospitalBysvkedtqj73-28-9209 13:06-0400Body tvaimh99.4 kg Leah Lauraz [employer] PROFESSIONAL Work Phone: [facility] HospitalOgvopyjhkv37-29-4413 13:06-0400Diastolic blood mm[Hg]Leah Lauraz [employer] PROFESSIONAL Work Phone: [facility] HospitalEcuvzeebbj44-32-2038 13:06-0400Heart rate89 /min Leah Jazminholz [employer] PROFESSIONAL Work Phone: [facility] HospitalFjelpocshi63-13-7577 13:06-0400Respiratory rate18 /minLisa aJzminholz [employer]AIL [employer] PROFESSIONAL Work Phone: [facility] HospitalFjezemfphm07-28-3489 13:06-0731CtJ3% (BldA) [Mass fraction]92 %Leah Sanchezz [employer]AIL [employer] PROFESSIONAL Work Phone: [facility] HospitalJmcgcyhmxq48-62-9231 13:06-0400Systolic blood xqtpszbu326 mm[Hg]Leah Jazminholz [employer]AIL [employer] PROFESSIONAL Work Phone: [facility] HospitalPgruepxjoa59-72-1145 13:44-0400Body iyvrww232.3 cmLisa Jazminholz [employer]AIL [employer]S PROFESSIONAL Work Phone: [facility] HospitalZujfblxesl70-98-5908 13:44-0400Body mass index (BMI) [Ratio]22.39 kg/m2Lisa Jazminholz [employer] PROFESSIONAL Work Phone: [facility] HospitalWfmcsbafny34-02-2094 13:44-0400Body temperature 98.1 [degF]Leah Jazminholz [employer] PROFESSIONAL Work Phone: [facility] HospitalCxvqprpmlr41-58-4123 13:44-0400Body hyjktm98.77 kgLisa Lchholz [employer]AIL [employer] PROFESSIONAL Work Phone: [facility] HospitalVvbgmpjyfv20-27-4341 13:44-0400Diastolic blood xrjgwjyr33 mm[Hg]Leah Jazminholz [employer] PROFESSIONAL Work Phone: [facility] HospitalQhfcvhukqz68-33-3780 13:44-0400Heart rate76 /min Leah Jazminholz [employer] PROFESSIONAL Work Phone: [facility] HospitalMepzqqbsfk79-85-1888 13:44-0400Respiratory rate19 /minLisa Lchholz [employer]AIL [employer] PROFESSIONAL Work Phone: [facility] HospitalUuhlcikxnz78-15-6248 13:44-2574GaH4% (BldA) [Mass fraction]97 %Leah Jazminholz [employer]AIL [employer] PROFESSIONAL Work Phone: [facility] HospitalHsnnddpreq95-16-4987 13:44-0400Systolic blood wgvuxede140 mm[Hg]Leah Lchholz [employer]AIL [employer] PROFESSIONAL Work Phone: [facility] HospitalZzzbmbjrex07-09-6777 14:11-0500Body wdtfir140.3 Wong Olson [employer] PROFESSIONAL Work Phone: noThree [facility] HealthcareMvtedsybsf43-37-5221 14:11-0500Body mass index (BMI) [Ratio]22.95 kg/m2Leah Olson [employer]AIL [employer] PROFESSIONAL Work Phone: noThree [facility] HealthcareNuxojuxvbs62-72-8031 14:11-0500Body temperature 98.2 [degF]Leah Sanchezevan [employer]AIL [employer] PROFESSIONAL Work Phone: [facility] HospitalCyhktwugvz88-54-6584 14:11-0500Body eaxlpm36.49 kgLeah Sanchezevan [employer]AIL [employer]S PROFESSIONAL Work Phone: noThree [facility] HealthcareHhdicybagy51-36-2408 14:11-0500Diastolic blood cdpxguvu73 mm[Hg]Leah Olson [employer]AIL [employer] PROFESSIONAL Work Phone: noThree [facility] HealthcareKrpdczrftn17-41-0544 14:11-0500Heart rate95 /min Leah Olson [employer] PROFESSIONAL Work Phone: [facility] HospitalArzynijgoq68-00-3527 14:11-0500Respiratory rate18 /minLisa Olson [employer]AIL [employer] PROFESSIONAL Work Phone: noThree [facility] HealthcareXafzzetvpq65-09-6431 14:11-4337OtZ2% (BldA) [Mass fraction]99 %Leah Olson [employer]AIL [employer] PROFESSIONAL Work Phone: noThree [facility] HealthcareSgxpcwwfyk50-83-0576 14:11-0500Systolic blood ppoupwej023 mm[Hg]Leah Wesley [employer]AIL [employer] PROFESSIONAL Work Phone: [facility] Encounters Encounter DateEncounter TypeCare ProviderFacilityStart: 12-16-2024 End: 24-15-8141jhwcmiorgbMvgt J Aichholz [employer]AIL [employer]S PROFESSIONAL-C Work Phone: [facility] ClydeStart: 12-16-2024 End: 01-34-9537Xdwpezn encounter procedureLisa Gordon Olson RETAIL [employer] PROFESSIONAL-C-[facility] Work Phone: Start: 40-78-2992Dhcbiwh encounter procedureLisa Lckelli [employer]AIL [employer] PROFESSIONAL-C Work Phone: [facility] Hospitaltart: 09-20-2024 End: 71-42-9098Ztwqezz encounter procedureLisa Aichholz [employer]AIL [employer]S PROFESSIONAL Work Phone: [facility]WM FMComment on above:Encounter for subsequent annual wellness visit (AWV) in Medicare patient (Primary Dx); Tobacco dependence; Chronic midline thoracic back pain; Elevated PSAStart: 09-20-2024 End: 26-30-5508ankrultncwOTDL AICHHOLZNot AvailableStart: 09-20-2024 End: 72-65-6484Frujsmaph Result EncounterLisa Aichholz [employer]AIL [employer] PROFESSIONAL Work Phone: [facility] External Department UnsolicitedStart: 09-20-2024 End: 77-08-7425Qbldvqotd Result EncounterLisa Aichholz [employer]AIL [employer] PROFESSIONAL Work Phone: [facility] External Department UnsolicitedStart: 09-15-2024 End: 89-99-4820Qimfgk flowsheetLisa Aichholz [employer]AIL [employer]S PROFESSIONAL Work Phone: [facility] CWM FMStart: 09-15-2024 End: 78-94-4576Seapkx flowsheetLisa Aichholz [employer]AIL [employer]S PROFESSIONAL Work Phone: [facility]WM FMStart: 09-15-2024 End: 50-46-6383ughdhdkutuQINP AICHHOLZNot AvailableStart: 09-15-2024 End: 14-63-7923Nsmsey outpatient visit 15 minutesLisa Aichholz [employer]AIL [employer] PROFESSIONAL Work Phone: [facility] CWM FMComment on above:Primary hypertension (Primary Dx); COPD mixed type (HCC); Tobacco dependence; Medical non-compliance; Pulmonary hypertension (HCC); RLS (restless legs syndrome); Cervical pain (neck)Start: 06-16-2024 End: 58-25-7378Hrlzly flowsheetLisa Aichholz [employer]AIL [employer]S PROFESSIONAL Work Phone: [facility] FMStart: 06-16-2024 End: 12-76-6427Xkuyid flowsheetLisa Lchholz [employer]AIL [employer]S PROFESSIONAL Work Phone: [facility] CWM FMStart: 06-16-2024 End: 98-73-7922yacxntjpnwUJCF AICHHOLZNot AvailableStart: 06-16-2024 End: 60-17-5427Oncmgt outpatient visit 25 minutesLisa Lcclareguerlinez [employer]AIL [employer] PROFESSIONAL Work Phone: [facility] FMComment on above:Primary hypertension (CMS/HCC) (Primary Dx); Crohn's disease, unspecified, without complications (CMS/HCC); COPD mixed type (CMS/HCC); Pulmonary hypertension (CMS/HCC); Crohn's disease without complication, unspecified gastrointestinal tract location (CMS/HCC); Tobacco dependence; Chronic midline thoracic back pain; Arthralgia, unspecified joint; Lung cancer screening declined by patientStart: 03-05-2024 End: 21-12-0839otvcwznawiMXLKLTKParma Community General Hospital Start: 12-17-2023 End: 19-40-1356Awfdid flowsheetLisa Jazminholz [employer]AIL [employer] PROFESSIONAL Work Phone: NOGI CWM FMStart: 12-17-2023 End: 85-01-8386Oghlab flowsheetLisa Aichholz [employer]AIL [employer]S PROFESSIONAL Work Phone: NOIW CWM FMStart: 12-17-2023 End: 45-84-1585pcvqulzoocYIVA LCHHOLZNot AvailableStart: 12-17-2023 End: 83-16-6551Ytzrjc outpatient visit 25 minutesLisa Lcclareyordan [employer]AIL [employer] PROFESSIONAL Work Phone: NOXR CWM FMComment on above:Crohn's disease without complication, unspecified gastrointestinal tract location (CMS/HCC) (Primary Dx); Tobacco user; Pulmonary hypertension (CMS/HCC); History of kidney cancer; Screening for prostate cancer; Needs flu shot; RLS (restless legs syndrome)Start: 10-21-2023 End: 81-89-8469Flxeignup Result EncounterGeneric External Data ProviderNOMS External Department UnsolicitedStart: 10-21-2023 End: 42-24-7485Etrydmgeu Result EncounterGeneric External Data ProviderNOMS External Department UnsolicitedStart: 10-03-2023 End: 24-39-6113bzdsmpirujCIFONAGParma Community General Hospital Start: 51-99-1454Cwjtyir encounter procedureLeah Olson [employer] PROFESSIONAL Work Phone: [facility] HealthcareStart: 08-20-2023 End: 25-88-7297Wmetczqtn Result EncounterSstefani Fairbanks MD Work Phone: [facility] External Department UnsolicitedStart: 08-20-2023 End: 57-16-7879Vydoedtie Result EncounterSstefani Fairbanks MD Work Phone: [facility] External Department UnsolicitedStart: 08-19-2023 End: 59-74-4264Lzbdaltia Result EncounterSstefani Fairbanks MD Work Phone: [facility] External Department UnsolicitedStart: 08-19-2023 End: 62-66-9438Xlyzifcoz Result EncounterSstefani Fairbanks MD Work Phone: [facility] External Department UnsolicitedStart: 04-01-2023 End: 84-11-7375Maewxf outpatient visit 15 minutesLeah Wuguerlineevan [employer]AIL [employer]S PROFESSIONAL Work Phone: [facility] CWM FMComment on above:Pulmonary hypertension (CMS/HCC) (Primary Dx); Crohn's disease without complication, unspecified gastrointestinal tract location (CMS/HCC); Tobacco user; AnxietyStart: 04-27-2020 End: 77-95-4944Uqgcdl OnlyKathleen Emilia Bates Work Phone: [facility] Start: 09-10-2017 End: 87-27-7239Cbpmrdl encounterELLEN JOSÉ LUIS DOWNINGsumma health bar[facility] campussyeda [facility] Centertart: 09-10-2017 End: 06-78-4340Cpjdyxj encounterEllen José Luis Ni Work Phone: [facility] Diagnostics Procedures DateProcedureProcedure DetailPerforming ClinicianStart: 47-34-1126RO THORACIC SPINE 3VLisa Wesley [employer] PROFESSIONAL Work Phone: Start: 63-37-5252SVF CBC WITH AUTO DIFFLisa Olson [employer] PROFESSIONAL Work Phone: Start: 53-53-9125WF ECHO DOPPLER COMPLETEGeneric External Data ProviderStart: 97-20-8412LT CERVICAL SPINE 2-3VSstefani Fairbanks MD Work Phone: Start: 24-78-3077WD THORACIC SPINE 3VSstefani Fairbanks MD Work Phone: Start: 59-78-5260JE PULMONARY FUNCTION TESTLisa Olson [employer] PROFESSIONAL Work Phone: Plan of Treatment DateCare ActivityDetailAuthorStart: 09-26-2025 End: 99-25-4099Tdjqkts encounter fvnmuqplv08/03/2026 4:30 PM EDT Office Visit [facility] [address] [place] [address] Leah Olson [employer] PROFESSIONAL [address] [place] [address] [facility] CW FMStart: 07-28-2026Medicare Annual Wellness (AWV) Medicare Annual Wellness (AWV)[facility] HealthcareStart: 12-16-2024 End: 21-86-8711Godwfhp encounter /23/2025 1:20 PM EDT Office Visit [facility] [address] [place] [address] Leah Olson [employer] PROFESSIONAL [address] [place] [address] [facility] C[facility] FMStart: 11-23-2024 End: 23-27-2469Qzqdgfm encounter uoiamvtep81/30/2025 2:20 PM EDT Office Visit [facility] [address] [place] [address] Leah Olson, [employer] PROFESSIONAL [address] [place] [address] [facility] FMStart: 62-13-3973Vlqdnmamc vaccinationInfluenza Vaccine (#1)NOM HealthcareStart: 10-21-2024 End: 78-24-0863CSM, total and freePSA, total and free Lab Routine Elevated PSA Expected: 10/21/2024 (Approximate), Expires: 09/20/2025[facility] Work Phone: Comment on above:Expected: 10/21/2024 (Approximate), Expires: 09/20/2025Start: 09-20-2024 End: 54-52-7091Qbnppze encounter vwfupqnpr21/28/2025 4:30 PM EDT [facility] [address] [place] [address] Leah Olson, [employer] PROFESSIONAL [address] [place] [address] [facility] FMStart: 07-23-2025Medicare Annual Wellness (AWV) Medicare Annual Wellness (AWV)[facility] HealthcareStart: 09-15-2024 End: 96-85-1172Svobdbl encounter /23/2025 1:20 PM EDT Office Visit [facility] [address] [place] [address] Leah Olson, [employer] PROFESSIONAL [address] [place] [address] [facility] FMStart: 06-16-2024 End: 93-87-8489Gtycoyo Ab [Titer] in Serum by ImmunofluorescenceANA Lab Routine Arthralgia, unspecified joint Expected: 06/16/2024 (Approximate), Expires: 06/16/2025[facility] HealthcareComment on above:Expected: 06/16/2024 (Approximate), Expires: 06/16/2025Start: 06-16-2024 End: 78-36-7684Vholgvsusy factor [Units/volume] in Serum or PlasmaRheumatoid factor Lab Routine Arthralgia, unspecified joint Expected: 06/16/2024 (Approximate), Expires: 06/16/2025[facility] HealthcareComment on above:Expected: 06/16/2024 (Approximate), Expires: 06/16/2025Start: 06-16-2024 End: 68-28-4305Oorax [Mass/volume] in Serum or PlasmaUric acid Lab Routine Arthralgia, unspecified joint Expected: 06/16/2024 (Approximate), Expires: NONY HealthcareComment on above:Expected: 06/16/2024 (Approximate), Expires: 06/16/2025Start: 06-16-2024 End: 31-97-1928ED Thoracic spine 3 ViewsXR thoracic spine 3 views Imaging Routine Chronic midline thoracic back pain Expected: 06/16/2024 (Approximate), Expires: 06/16/2025[facility] Work Phone: Comment on above:Expected: 06/16/2024 (Approximate), Expires: 06/16/2025Start: 06-16-2024 End: 29-08-4195Pfxpsrq encounter bigqmwyqj72/23/2025 1:00 PM EDT Office Visit [facility] [address] [place] [address] Leah Olson NP [address] [place] [address] [facility]IN FMStart: 12-17-2023 End: 89-12-3204VNT W Auto Differential panel - BloodCBC and differential Lab Routine Tobacco user History of kidney cancer Expected: 12/17/2023 (Approxi mate), Expires: 12/16/2024NON[facility] HealthcareComment on above:Expected: 12/17/2023 (Approximate), Expires: 12/16/2024Start: 12-17-2023 End: 25-42-6527Vfvpusfezprqf metabolic 2000 panel - Serum or PlasmaComprehensive metabolic panel Lab Routine Pulmonary hypertension (CMS/HCC) History of kidney cancerExpected: 12/17/2023 (Approximate), Expires: 12/16/2024[facility] Comment on above:Expected: 12/17/2023 (Approximate), Expires: 12/16/2024Start: 12-17-2023 End: 37-26-8123Lwelrhif specific Ag [Mass/volume] in Serum or PlasmaPSA Lab Routine Screening for prostate cancer Expected: 12/17/2023 (Approximate), Expires: 12/16/2024[facility] Work Phone: Comment on above:Expected: 12/17/2023 (Approximate), Expires: 12/16/2024Start: 12-17-2023 End: 22-03-8158Nnxrhxqwzl complete panel - UrineUrinalysis with reflex microscopic (clean catch) Lab Routine History of kidney cancer Expected: 11/25 (Approximate), Expires: 12/16/2024[facility] HospitalComment on above: Expected: 12/17/2023 (Approximate), Expires: 12/16/2024Start: 10-26-2023 Influenza vaccinationInfluenza Vaccine (#1)[facility] HealthcareStart: 08-24-2023 Influenza vaccinationInfluenza Vaccine (#1)[facility] HealthcareComment on above: Postponed from 10/25/2022 (Patient Does Not Have Time)Start: 05-14-2023 End: 23-20-3357Jutpeni encounter /20/2024 1:40 PM EDT Office Visit [facility] [address] [place] [address] Leah Olson NP [address] [place] [address] [facility] FMStart: 54-81-0037Ssuubnsstdzk Vaccine: 65+ Years (1 - PCV)Pneumococcal Vaccine: 65+ Years (1 - PCV)[facility] HealthcareComment on above: Postponed from 1962 (Patient Does Not Have Time)Start: 02-90-4764Lfskkhmqd vaccination givenSequential Influenza Vaccine (#1)[facility]: 10-25-2017 Influenza vaccinationSEQUENTIAL INFLUENZA VACCINE (#1)[facility]Start: 95-88-5295Fsstrh vaccine hzv live for subcutaneous useZOSTER VACCINEOhioHealth Start: 43-12-0370Hayahyohxviayj of herpes zoster vaccineZoster Vaccines (1 of 2) [facility]Start: 99-22-5132Fylyqynfd for malignant neoplasm of colonOhioHealth Start: 95-84-1572Tvoapszdy C antibody, confirmatory testHepatitis C Screening [facility]Start: 37-88-2122ZCRWJ-19 Vaccine (1 of 2)COVID-19 Vaccine (1 of 2) [facility]Start: 55-20-9346GVI screeningHIV ScreeningOhioHealthStart: 1967 Adolescent depression screening assessmentDepression Screening (PHQ9)[facility] Start: 47-64-4295Tkcqaqx and physical examination, annual for health maintenance Wellness VisitOhioHealthStart: 09-03-1957Medicare Annual Wellness (AWV)Medicare Annual Wellness (AWV)[facility] HealthcareStart: 25-91-7842Qrlkoler specific antigen measurementPSA LevelOhioHealthStart: 38-74-2059XDXATCLJO C SCREENINGHEPATITIS C SCREENINGOhioHealthStart: 84-75-0326Ehughsolm colonoscopyCOLONOSCOPYOhioHealth Start: 1955 End: 39-98-4636Zeuqvfj vaccinationOhMarietta [facility] Hospital Immunizations Immunization DateImmunizationNotesCare CwjczkqsCuoesmyp06-55-5394Vofmheyn trivalent influenza vaccine, adjuvanted, preservative freeLisa Aichholz [employer] PROFESSIONAL Work Phone: [facility] Sjcswcaskl65-23-2887hoqzqaaut virus vaccine, unspecified formulationLisa Aichholz [employer] PROFESSIONAL Work Phone: [facility] Payers DatePayer CategoryPayerPolicy [id number] 2025Medicare [id number] 2024Medicare (Managed Care) [id number] [id number] 2020MedicareMEDICARE [id number] [id number] [id number] [id number] [id number] Social History DateTypeDetailFacilityTobacco smoking status NHISUnknown if ever smoked [facility]Start: 84-68-7349Bvn Assigned At BirthNot on fileOhioHealthStart: 03-26-2023 End: 13-18-8171Hzuauas smoking status NHISSmokes tobacco dailyNOMS Healthcare History of tobacco useCigarette SmokerNOMS HealthcareStart: 03-26-2023 End: 48-55-0936Jwsdavomys smoked current (pack per day) - Lnsoxdcy2AEDB HealthcareStart: 04-01-2023 End: 58-16-9050Valmqyu use [facility] CenterHistory of tobacco usePassive smokerHannibal Regional HospitalStart: 07-17-2023 End: 54-18-5601Xufzkwwkh beverage intakeLifetime non-drinker (finding)[facility] smoking status NHISUnknown if ever smokedSheltering Arms Hospital Work Phone: SexMale (finding)[facility] Start: 27-19-1438Zay Assigned At [facility] Start: 08-45-0191JalMvswUXXG Healthcare Functional Status OqcpRrbyhsbjzvXtejsaVzgrcdpn24-50-6197Rvgwcio Health Questionnaire 2 item (PHQ- 2) [Reported][facility] HospitalVvawgpidej25-18-2232Ejjxiypin depression scale (GDS).short version [facility] CenterDtcgpqfkjv76-37-8411Upefwap Health Questionnaire 2 item (PHQ- 2) [Reported][facility] HospitalYmxrsntzys42-01-7472Ioj difficult have these problems made it for you to do your work, take care of things at home, or get along with other people?Not difficult at all 09/16/2023 2:00 PM EDT Yudy Marie MA Not difficult at [facility] Clinical Notes 04-01-2023 to 09-20-2024 Note Date & [id number] History of Present illness Narrative* Leah Olson NP - 09/20/2024 5:57 PM EDTAssociated Problem(s): Chronic midline thoracic back pain Order PT * YUDY MARIE - 09/20/2024 4:30 PM EDT Pt would like to talk about wart/corn on hands * Leah Olson NP - 09/20/2024 4:30 PM EDT Images from the original note were not included. Mark Simmons is a 68 y.o. male presents with chief complaint of Medicare Annual Wellness Visit Initial HPI: Diet:variety Activity:bike riding Mental Health Concerns:no Falls in the last year: yes tripping being careless with work Still driving:yes Do you pay your bills:yes Any hearing problems:no Any Vision problems: wears glasses Any Hospitalizations in the last year: no Specialist: no HCPOA/Living Will:no Concerns: ' Thoracic back pain SUBJECTIVE: MEDICATIONS: Current Outpatient Medications Medication Instructions [...] urinating, dysuria and hematuria. Musculoskeletal: Positive for back pain. Skin: Negative for color change. [...] History: Procedure Laterality Date COLECTOMY x2 NEPHRECTOMY 2014 family history is not on file. OBJECTIVE: Visit Vitals BP 124/76 (BP Location: Left arm, Patient Position: Sitting, BP Cuff Size: Adult long) Pulse 84 Temp 98.4 F (Temporal) Resp 18 Wt 155 lb 9.6 oz SpO2 96% BMI 24.01 kg/m Smoking Status Every Day BSA 1.83 m Physical Exam Vitals and nursing note reviewed. Constitutional: Appearance: Normal appearance. He is not ill-appearing. HENT: Head: Normocephalic. Right Ear: External ear [...] rhonchi. Abdominal: General: Bowel sounds are normal. There is no distension. Palpations: Abdomen is soft. Tenderness: There is no abdominal tenderness. Musculoskeletal: Cervical back: Neck supple. Right lower [...] file. Problem List Items Addressed This Visit Chronic midline thoracic back pain Order PT Relevant Orders Ambulatory referral to Physical Therapy Encounter for subsequent annual wellness visit (AWV) in Medicare patient - Primary I have reviewed Ht/Wt/BMI, I have reviewed [...] office for wellness on a yearly basis Tobacco dependence The patient has been advised of the risks of continued smoking: stroke, DE, all forms of cancer, lung disease, and . Options for quitting smoking include: cold turkey, hypnosis, acupuncture, nicotine replacement meds(gum, lozenges, and patches), Buproprion, and Varenicline. At this time pt is encouraged to evaluate their goals for wanting to quit smoking, and reach out toprovider when ready to start this process Elevated PSA Relevant Orders PSA, total and free * Leah Olson NP - 09/20/2024 7:32 AM EDTAssociated Problem(s): Tobacco dependence The patient has been advised of the risks of continued smoking: stroke, DE, all forms of cancer, lung disease, and . Options for quitting smoking include: cold turkey, hypnosis, acupuncture, nicotine replacement meds(gum, lozenges, and patches), Buproprion, and Varenicline. At this time pt is encouraged to evaluate their goals for wanting to quit smoking, and reach out toprovider when ready to start this process * Leah Olson NP - 09/20/2024 7:32 AM EDTAssociated Problem(s): Encounter for subsequent annual wellness visit (AWV) in Medicare patient I have reviewed Ht/Wt/BMI, I have reviewed [...] office for wellness on a yearly basis documented in this encounterHannibal Regional [id number] Instructions* Patient Instructions* Leah Olson NP - 09/20/2024 4:30 PM EDT Check prostate blood test in about 4 weeks Physical therapy: [facility] documented in this encounterHannibal Regional [id number] History of Present illness Narrative* Leah Olson NP - 09/15/2024 3:11 PM EDTAssociated Problem(s): Pulmonary hypertension (HCC) Cardiology [facility], last appt 03/20 They recommend further testing w cath R/L he declined Was prescribed hydrochlorothiazide, and b nadeem * YUDY MARIE - 09/15/2024 1:20 PM EDT Pt is unsure if he has ever had an albuterol inhaler but he would take one if he can get it Pt needs refills on everything * Leah Olson NP - 09/15/2024 1:20 PM EDT Images from the original note were not included. Mark Simmons is a 68 y.o. male presents [...] 0.5 MG tablet Pulmonary hypertension (HCC) Cardiology [facility], last appt 03/20 They recommend further [...] of the risks of continued smoking: stroke, DE, all forms of cancer, lung disease, and [...] He verbalizes understanding and will complete this * Leah Olson NP - 09/15/2024 6:49 AM EDTAssociated Problem(s): Medical non-compliance Labs ordered in 12/17 as well as additional labs in 06/18 to date still not completed I did discuss the rationale for ordering and w exception of PSA testing no cancer He verbalizes understanding and will complete this * Leah Olson NP - 09/15/2024 6:47 AM EDTAssociated Problem(s): Tobacco dependence The patient has been advised of the risks of continued smoking: stroke, DE, all forms of cancer, lung disease, and . Options for quitting smoking include: cold turkey, hypnosis, acupuncture, nicotine replacement meds(gum, lozenges, and patches), Buproprion, and Varenicline. At this time pt is encouraged to evaluate their goals for wanting to quit smoking, and reach out toprovider when ready to start this process * Leah Olson NP - 09/15/2024 6:47 AM EDTAssociated Problem(s): COPD mixed type (HCC) Albuterol prn PFT's from 09/16: FVC 86%, FEV1 79%, and FEV1/FVC 69% * Leah Olson NP - 09/15/2024 6:47 AM EDTAssociated Problem(s): Primary hypertension Please check blood pressure daily and record DASH diet Limit caffeine Take medication as directed Contact office if chest pain, pressure, dizziness, shortness of breath, swelling legs Recommend slow position changes Current meds: hydrochlorothiazide, carvediolol documented in this encounterHannibal Regional [id number] Instructions* Patient Instructions* Leah Olson NP - 09/15/2024 1:20 PM EDT Labs please complete As well as xray documented in this encounterHannibal Regional [id number] History of Present illness Narrative* Leah Olson NP - 06/16/2024 1:30 PM EDTAssociated Problem(s): Lung cancer screening declined by patient Declines being tested * Leah Olson NP - 06/16/2024 1:25 PM EDTAssociated Problem(s): Primary hypertension (CMS/HCC) Please check blood pressure daily and record DASH diet Limit caffeine Take medication as directed Contact office if chest pain, pressure, dizziness, shortness of breath, swelling legs Recommend slow position changes Current meds: hydrochlorothiazide, carvediolol * YUDY MARIE - 06/16/2024 1:00 PM EDT Right elbow pain- anytime he hits it it feels like a stabbing pain Pt has been having a lot of joint pain and back pain recently Pt is showing signs of being very fidgety and anxious Humming while messing with gadgets and keys, pt kept sunglasses on while head was down * Leah Olson NP - 06/16/2024 1:00 PM EDT Images from the original note were not included. Mark Simmons is a 68 y.o. male presents [...] a new GI Pulmonary hypertension (CMS/HCC) Cardiology [facility], last appt 03/20 They recommend further [...] of the risks of continued smoking: stroke, DE, all forms of cancer, lung disease, and [...] screening declined by patient Declines being tested * Leah Olson NP - 06/16/2024 6:52 AM EDTAssociated Problem(s): Tobacco dependence The patient has been advised of the risks of continued smoking: stroke, DE, all forms of cancer, lung disease, and . Options for quitting smoking include: cold turkey, hypnosis, acupuncture, nicotine replacement meds(gum, lozenges, and patches), Buproprion, and Varenicline. At this time pt is encouraged to evaluate their goals for wanting to quit smoking, and reach out toprovider when ready to start this process * Leah Olson NP - 06/16/2024 6:52 AM EDTAssociated Problem(s): Crohn's disease (CMS/HCC) In the past, pt was requesting mesalamine script for treatment prn. I explained to pt that this really should be coming from GI specialist, and at that time he refused to see a new GI * Leah Olson NP - 06/16/2024 6:50 AM EDTAssociated Problem(s): Pulmonary hypertension (CMS/HCC) Cardiology [facility], last appt 03/20 They recommend further testing w cath R/L he declined Was prescribed hydrochlorothiazide, and b nadeem * Leah Olson NP - 06/16/2024 6:50 AM EDTAssociated Problem(s): COPD mixed type (CMS/HCC) Albuterol prn PFT's from 09/16: FVC 86%, FEV1 79%, and FEV1/FVC 69% documented in this [facility]04-23-2025 Instructions* Patient Instructions* Leah Olson NP - 06/16/2024 1:00 PM EDT Get labs complted not fasting documented in this [facility]01-10-2025 NoteCardiology Clinic Note HPI: DevikaGordon Alicia is a 68 y.o. male With [...] or concerns. Edna Boudreaux MD Interventional Cardiology [facility]10-23-2024 History of Present illness Narrative* Leah Olson NP - 12/17/2023 2:23 PM EDTAssociated Problem(s): History of kidney cancer No current symptoms * eLah Olson NP - 12/17/2023 2:22 PM EDTAssociated Problem(s): RLS (restless legs syndrome) Continue current meds * Leah Olson NP - 12/17/2023 2:08 PM EDTAssociated Problem(s): Crohn's disease (CMS/HCC) Requesting mesalamine script for treatment prn I explained to pt that this really should be coming from GI specialist At this time he refuses to see a new GI Will reach out if he changes his mind * Leah Olson NP - 12/17/2023 2:07 PM EDTAssociated Problem(s): Pulmonary hypertension (CMS/HCC) Was referred to Cardiology They recommend further testing w cath R/L he declined Was prescribed HCTZ * Leah Olson NP - 12/17/2023 1:40 PM EDT Images from the original note were not included. Mark Simmons is a 68 y.o. male presents [...] see a new GI and does not wantany scopes SUBJECTIVE: MEDICATIONS: Current Outpatient Medications Medication [...] Diagnosis Date Anxiety Arthritis Cancer of kidney ([facility]) Crohn's disease ([facility]) Family history of coronary arteriosclerosis Fatigue Insomnia [...] of the risks of continued smoking: stroke, DE, all forms of cancer, lung disease, and . Options for quitting smoking include: cold turkey, hypnosis, acupuncture, nicotine replacement meds(gum, lozenges, and patches), Buproprion, and Varenicline. At this time pt is encouraged to evaluate their goals for wanting to quit smoking, and reach out toprovider when ready to start this process Relevant [...] Relevant Orders Flu vaccine, trivalent, adjuvanted, PF ([id number]) (Fluad trivalent single dose syringe) * Leah Olson NP - 12/17/2023 6:52 AM EDTAssociated Problem(s): Tobacco user The patient has been advised of the risks of continued smoking: stroke, DE, all forms of cancer, lung disease, and . Options for quitting smoking include: cold turkey, hypnosis, acupuncture, nicotine replacement meds(gum, lozenges, and patches), Buproprion, and Varenicline. At this time pt is encouraged to evaluate their goals for wanting to quit smoking, and reach out toprovider when ready to start this process documented in this encounterHannibal Regional [id number] NoteCardiology Clinic Note HPI: GUTIERREZ Alicia is a 67 y.o. [...] has a past medical history of Cancer ([facility]) and Crohn disease ([facility]). Surgical History He has a [...] or concerns. Edna Boudreaux MD Interventional Cardiology [facility]02-06-2024 History of Present illness Narrative* Leah Olson NP - 04/01/2023 3:00 PM ESTAssociated Problem(s): Anxiety At this time he does not feel he needs medicated * Leah Olson NP - 04/01/2023 2:59 PM ESTAssociated Problem(s): Crohn's disease (CMS/HCC) Stable at this time * Leah Olson NP - 04/01/2023 2:59 PM ESTAssociated Problem(s): Pulmonary hypertension (CMS/HCC) Referred to [facility] Cardiology Appt made while pt was here for 04/11/23 * Leah Olson NP - 04/01/2023 2:00 PM EST Images from the original note were not included. Mark Simmons is a 67 y.o. male presents with chief complaint of No chief complaint on file. HPI: Here for recheck, since last visit had stress test and ECHO for chest pain, stress test was normal,however he did have elevated pressures on echo [...] Diagnosis Date Anxiety Arthritis Cancer of kidney ([facility]) Crohn's disease ([facility]) Family history of coronary arteriosclerosis Fatigue Insomnia [...] made while pt was here for 04/11/23 * YUDY MARIE - 04/01/2023 2:00 PM EST Subjective Patient ID: Mark Simmons is a 67 y.o. male who presents for No chief complaint on file.. HPI Review of Systems Objective Physical Exam Assessment/Plan Patient ID: Mark Simmons is a 67 y.o. male. Procedures documented in this encounterNOMS HealthcareEvaluation note* Diagnosis Pulmonary hypertension (CMS/HCC)- Primary [...] (neck) Cervicalgia documented in this encounter [facility]* [...] legs syndrome (RLS) Cervical pain (neck) Cervicalgia Encounter for subsequent annual wellness visit (AWV) in Medicare patient- Primary Tobacco dependence Tobacco use disorder Chronic midline thoracic back pain Elevated PSA Elevated prostate specific antigen (PSA) documented in this encounter [facility]* Diagnosis Onset Date Resolution Status Admit Date COPD mixed type acuteOctober 2024 1:31pmCrohn diseaseacuteOctober 2024 1:31pm Elevated PSAacuteOctober 2024 1:31pmEssential hypertensionacuteOctober 2024 1:31pmGAD (generalized anxiety disorder)acuteOctober 2024 1:31pmNicotine dependence, uncomplicatedacuteOctober 2024 1:31pmPulmonary hypertensionacuteOctober 2024 1:31pm [facility] Work Phone: Reason for referral (narrative)No reason for referral information availableSheltering Arms Hospital Work Phone: Assessments DiagnosisLow back pain Lumbago Summary Purpose Family History No Family History Records FoundNo Family History Records FoundNo Family History Records Found Advance Directives Advance Directive Response Recorded Date/ Time Advance Directives No October 4:24pm Chief Complaint and Reason for Visit Chief [...] 2024 1:31pm Pulmonary hypertension December 16 1:31pm Additional Source Comments (unrecognized sect ion and content) No Status Records FoundNo Status Records FoundNo Status Records Found INFORMATION SOURCE (unrecogn ized section and content) DATE CREATED AUTHOR 09/12/2017 [facility] DATE CREATED AUTHOR AUTHOR'S ORGANIZ ATION 04/26/2024 [facility] DATE CREATED AUTHOR AUTHOR'S ORGANIZ ATION 09/21/2024 [facility] EPIC Care Teams (unrecognized sec tion and content) Team MemberRelationshipSpecialtyStart DateEnd Date Nicolas Trujillo MD [address] [place] [phone] PCP - [facility]03/25/23Team MemberRelationshipSpecialtyStart DateEnd Date Unallocated, Noms MD [address] [place] [address] PCP - [facility]12/17/23 Leah Olson NP [address] [place] [address] Nurse Pract[facility]erSt[facility]10/21/23Team MemberRelationshipSpecialtyStart DateEnd Date Unallocated, Noms MD Rich [facility] [place] [address] PCP - [facility]St[facility]12/17/23 Leah Olson NP [address] [place] [address] Nurse PractitionerSt[facility]10/21/23Team MemberRelationshipSpecialtyStart DateEnd Date Nicolas Trujillo MD [address] [place] [phone] PCP - GeneralFamily Yxuulprm08/31/24 Leah Olson NP [address] [place] [address] [facility]10/21/23Team MemberRelationshipSpecialtyStart DateEnd Date Nicolas Trujillo MD [address] [place] [phone] PCP - [facility] Zzfxhgcc09/31/24 Leah Olson NP [address] [place] [address] Nurse PractitionerSt[facility]10/21/23Team MemberRelationshipSpecialtyStart DateEnd Date Nicolas Trujillo MD [address] [place] [phone] PCP - [facility]12/25/23 Leah Olson NP [address] [place] [address] Nurse PractitionerSt[facility]10/21/23Team MemberRelationshipSpecialtyStart DateEnd Date Nicolas Trujillo MD [address] [place] [phone] PCP - [facility]12/25/23 Leah Olson NP [address] [place] [address] [facility]10/21/23Team MemberRelationshipSpecialtyStart DateEnd Date Nicolas Trujillo MD [address] [place] [address] PCP - [facility]Ch[facility] Inmvduqu37/31/24 Leah Olson NP [address] [place] [phone] Nurse PractitionerSt. [facility]10/21/23Team MemberRelationshipSpecialtyStart DateEnd Date Nicolas Trujillo MD [address] [place] [phone] PCP - [facility]12/25/23 Leah Olson NP [address] [place] [phone] Nurse PractitionerSt. [facility]10/21/23 Team Status: Active Member Role/Relationship Status Dates Leah Olson NP-Pedro Primary Care Provider Active Team Status: Inactive Member Role/Relationship Status Dates Leah Olson NP-C Primary Care Provider Active Start: December 16, 2024 End: December 16, 2024Leah Olson NP-CAttending ProviderActiveStart: December 16, 2024 End: December 16, 2024Team MemberRelationshipSpecialtyStart DateEnd Date Nicolas Trujillo MD PCP - [facility]03/25/2409 Unallocated, Maurice Villanueva MD [address] [place] [address] PCP - GeneralFamily [id number]/ Nicolas Trujillo MD PCP - GeneralFamily Imuhzjpc15/31/24 Leah Olson NP [address] [place] [address] PCP - C12//04/20 Leah Olson NP Nurse PractitionerCh[facility] Medicine10/21/23 Reason for Visit (unrecogniz ed section and content) ReasonCommentsHypertensionReasonCommentsMedicare Annual Wellness Visit Initial Goals (unrecognized section and content) Goals may be documented in a n alternate section FOR RECORDS PERTAINING TO PATIENTS WHO ARE [...] BE BASED ON THE PRIMARY CLINICAL RECORDS. [facility]. provides no warranty or guarantee of the accuracy or completeness of information in this document.
[2024-12-28 08:13] LABS: PSA, Free 0.75 ng/mL
== END 2024-12-27 15:18 | disposition home or self-care (01) ==
PROVIDERS: PCP Nurse Practitioner; Visit Provider Nurse Practitioner
DX: R97.20 Elevated prostate specific antigen [PSA] (principal)
CPT/HCPCS: 36415; 84153; 84154